=== PATIENT | female | born 1955 | race Caucasian/White ===

== ENCOUNTER 2016-09-09 14:48 | Inpatient (IN) | payer BC, MEDICARE ==
[2016-09-09] MEDS ORDERED: ASPIRIN 81 MG CHEW PO STA (15:03)
[2016-09-09] MEDS ORDERED: NITROGLYCERIN OINT 1 INCH/GM PACKET TOPICAL STA (15:03)
--- NOTE | 2016-09-09 15:11 | ED ---
General Adult HPI - General Chief complaint: Chest Pain Stated complaint: Chest Pressure Time Seen by Provider: 09/09/16 14:50 Source: patient, RN notes reviewed Mode of arrival: wheelchair Limitations: physical limitation - History of Present Illness Initial comments: This is a 61-year-old female with a past medical history significant for possible syndrome and high blood pressure. Patient states she has borderline high cholesterol. Patient comes in today because she 6. One hour of chest tightness. Patient states became very diaphoretic. In the tightness continues. Patient states she's mildly short of breath. Patient denies any nausea. Patient denies any palpitations. Patient denies lightheadedness dizziness or near syncopal episode per patient denies headache patient denies numbness weakness. Patient denies abdominal pain patient denies nausea vomiting or diarrhea. Patient states she was catheterized about 15 years ago but has not had any Physician since. - Related Data Home Medications Medication Instructions Recorded Confirmed ALPRAZolam [Xanax] 0.25 mg PO BID PRN 01/07/16 09/09/16 Albuterol Inhaler [Ventolin Hfa 2 puff INHALATION RT-Q6H PRN 01/07/16 09/09/16 Inhaler] Cyclobenzaprine [Flexeril] 5 mg PO TID PRN 01/07/16 09/09/16 Levothyroxine Sodium [Synthroid] 88 mcg PO DAILY 01/07/16 09/09/16 Nabumetone [Relafen] 1,500 mg PO QAM 01/07/16 09/09/16 Omeprazole [PriLOSEC] 40 mg PO DAILY 01/07/16 09/09/16 Liothyronine Sodium [Cytomel] 10 mcg PO DAILY 05/07/16 09/09/16 Multivitamins, Thera [Multivitamin] 1 tab PO DAILY 05/07/16 09/09/16 Sertraline [Zoloft] 150 mg PO DAILY 05/07/16 09/09/16 Rizatriptan Odt [Maxalt Stem Processing Machine Operator] 10 mg PO DAILY PRN 05/19/16 09/09/16 Lisinopril [Zestril] 10 mg PO DAILY 08/20/16 09/09/16 Milk Thistle 150 mg PO DAILY 08/20/16 09/09/16 HYDROcodone/APAP 10-325MG [[place] 1 - 2 tab PO Q6H PRN 09/09/16 09/09/16 10] Allergies Allergy/AdvReac Type Severity Reaction Status Date / Time codeine Allergy Nausea & Verified 09/09/16 15:38 Vomiting Review of Systems ROS Statement: Those systems with pertinent positive or pertinent negative responses have been documented in the HPI. ROS Other: All systems not noted in ROS Statement are negative. Past Medical History Past Medical History: Cancer, Hyperlipidemia, Hypertension, Osteoarthritis (OA) , Thyroid Disorder Additional Past Medical History / Comment(s): POTS,MTHFR mutation, hx melanoma History of Any Multi-Drug Resistant Organisms: None Reported Past Surgical History: Heart Catheterization, Hysterectomy, Joint Replacement, Orthopedic Surgery Additional Past Surgical History / Comment(s): bilateral knee replacement, and bilateral shoulders, joint rt thumb replaced and revised Past Anesthesia/Blood Transfusion Reactions: Previous Problems w/ Anesthesia, Postoperative Nausea & Vomiting (PONV) Additional Past Anesthesia/Blood Transfusion Reaction / Comment(s): POTS episode during anesthesia (severe drop in BP after previous knee replacement surgery) Past Psychological History: No Psychological Hx Reported Smoking Status: Former smoker Past Alcohol Use History: Occasional Additional Past Alcohol Use History / Comment(s): quit smoking couple years ago. smoked for 15 days < 1/2 PPD Past Drug Use History: None Reported - Past Family History Sister(s) Family Medical History: Cancer Brother(s) Family Medical History: Cancer General Exam - General Exam Comments Initial Comments: GENERAL: Patient is well-developed and well-nourished. Patient is nontoxic and well- hydrated and is in mild distress. ENT: Neck is soft and supple. No significant lymphadenopathy is noted. Oropharynx is clear. Moist mucous membranes. Neck has full range of motion without eliciting any pain. EYES: The sclera were anicteric and conjunctiva were pink and moist. Extraocular movements were intact and pupils were equal round and reactive to light. Eyelids were unremarkable. PULMONARY: Unlabored respirations. Good breath sounds bilaterally. No audible rales rhonchi or wheezing was noted. CARDIOVASCULAR: There is a regular rate and rhythm without any murmurs gallops or rubs. ABDOMEN: Soft and nontender with normal bowel sounds. No palpable organomegaly was noted. There is no palpable pulsatile mass. SKIN: Skin is clear with no lesions or rashes and otherwise unremarkable. NEUROLOGIC: Patient is alert and oriented x3. Cranial nerves II through XII are grossly intact. Motor and sensory are also intact. Normal speech, volume and content. Symmetrical smile. MUSCULOSKELETAL: Normal extremities with adequate strength and full range of motion. LYMPHATICS: No significant lymphadenopathy is noted PSYCHIATRIC: Normal psychiatric evaluation. Normal interpersonal interactions appears functionally intact in deals appropriately with others. No signs of depression. No signs of anxiety. Limitations: physical limitation Course Vital Signs 09/09/16 09/09/16 15:02 16:28 Temperature 96.9 F L Pulse Rate 96 99 Respiratory 18 18 Rate Blood Pressure 150/94 126/83 O2 Sat by Pulse 100 97 Oximetry Medical Decision Making - Medical Decision Making Patient's EKG shows bigeminy. EKG shows sinus rhythm at 102 bpm. It was 162 QRS is 94 QT interval 362 QTC is 471. Intrinsic rhythm was compared to an old EKG no new EKG changes are noted aside from the bigeminy Chest x-ray shows no acute abnormality. I went back and reevaluated the patient she was no longer in bigeminy and she was feeling considerably better because of patient's initial symptoms. I started the patient on heparin because of his symptoms I spoke with Dr. Wallace admitted patient's to Dr. Wallace and I wrote admitting orders and consult cardiology. - Lab Data Result diagrams: 09/09/16 15:15 09/09/16 15:15 Lab Results 09/09/16 09/09/16 09/09/16 Range/Units 15:15 15:15 15:15 WBC 6.4 (3.8-10.6) k/uL RBC 5.16 (3.80-5.40) m/uL Hgb 14.8 (11.4-16.0) gm/dL Hct 44.7 (34.0-46.0) % MCV 86.7 (80.0-100.0) fL MCH 28.6 (25.0-35.0) pg MCHC 33.0 (31.0-37.0) g/dL RDW 12.8 (11.5-15.5) % Plt Count 332 (150-450) k/uL Neutrophils % 67 % Lymphocytes % 21 % Monocytes % 8 % Eosinophils % 2 % Basophils % 1 % Neutrophils # 4.3 (1.3-7.7) k/uL Lymphocytes # 1.3 (1.0-4.8) k/uL Monocytes # 0.5 (0-1.0) k/uL Eosinophils # 0.1 (0-0.7) k/uL Basophils # 0.0 (0-0.2) k/uL PT (9.0-12.0) sec INR (<1.1) APTT (22.0-30.0) sec Sodium 144 (137-145) mmol/L Potassium 4.5 (3.5-5.1) mmol/L Chloride 105 (98-107) mmol/L Carbon Dioxide 23 (22-30) mmol/L Anion Gap 16 mmol/L BUN 15 (7-17) mg/dL Creatinine 0.79 (0.52-1.04) mg/dL Est GFR (MDRD) Af Amer >60 (>60 ml/min/1.73 sqM) Est GFR (MDRD) Non-Af >60 (>60 ml/min/1.73 sqM) Glucose 107 H (74-99) mg/dL Calcium 9.6 (8.4-10.2) mg/dL Magnesium 1.8 (1.6-2.3) mg/dL Total Bilirubin 0.7 (0.2-1.3) mg/dL AST 26 (14-36) U/L ALT 29 (9-52) U/L Alkaline Phosphatase 96 (38-126) U/L Total Creatine Kinase 46 (30-135) U/L CK-MB (CK-2) 0.5 (0.0-2.4) ng/mL CK-MB (CK-2) Rel Index 1.1 Troponin I <0.012 (0.000-0.034) ng/mL Total Protein 7.7 (6.3-8.2) g/dL Albumin 4.7 (3.5-5.0) g/dL 09/09/16 Range/Units 15:15 WBC (3.8-10.6) k/uL RBC (3.80-5.40) m/uL Hgb (11.4-16.0) gm/dL Hct (34.0-46.0) % MCV (80.0-100.0) fL MCH (25.0-35.0) pg MCHC (31.0-37.0) g/dL RDW (11.5-15.5) % Plt Count (150-450) k/uL Neutrophils % % Lymphocytes % % Monocytes % % Eosinophils % % Basophils % % Neutrophils # (1.3-7.7) k/uL Lymphocytes # (1.0-4.8) k/uL Monocytes # (0-1.0) k/uL Eosinophils # (0-0.7) k/uL Basophils # (0-0.2) k/uL PT 10.5 (9.0-12.0) sec INR 1.0 (<1.1) APTT 24.3 (22.0-30.0) sec Sodium (137-145) mmol/L Potassium (3.5-5.1) mmol/L Chloride (98-107) mmol/L Carbon Dioxide (22-30) mmol/L Anion Gap mmol/L BUN (7-17) mg/dL Creatinine (0.52-1.04) mg/dL Est GFR (MDRD) Af Amer (>60 ml/min/1.73 sqM) Est GFR (MDRD) Non-Af (>60 ml/min/1.73 sqM) Glucose (74-99) mg/dL Calcium (8.4-10.2) mg/dL Magnesium (1.6-2.3) mg/dL Total Bilirubin (0.2-1.3) mg/dL AST (14-36) U/L ALT (9-52) U/L Alkaline Phosphatase (38-126) U/L Total Creatine Kinase (30-135) U/L CK-MB (CK-2) (0.0-2.4) ng/mL CK-MB (CK-2) Rel Index Troponin I (0.000-0.034) ng/mL Total Protein (6.3-8.2) g/dL Albumin (3.5-5.0) g/dL Critical Care Time Critical Care Time: Yes Total Critical Care Time: 35 Disposition Clinical Impression: Unstable angina pectoris, Bigeminy Disposition: ADMITTED IP TO THIS [facility] Time of Disposition: 16:56
[2016-09-09 15:29] LABS: Basophils % (A) 1 %; CH 29.3; CHCM 33.9; Eosinophils # (A) 0.1 k/uL (0-0.7); Eosinophils % (A) 2 %; HCT 44.7 % (34.0-46.0); HDW 2.26; HGB 14.8 gm/dL (11.4-16.0); Luc # (Auto) 0.08; Luc % (Auto) 1; Lymphocytes # (A) 1.3 k/uL (1.0-4.8); Lymphocytes % (A) 21 %; MCH 28.6 pg (25.0-35.0); MCV 86.7 fL (80.0-100.0); Mean Platelet Volume 7.9; Monocytes # (A) 0.5 k/uL (0-1.0); Monocytes % (A) 8 %; Neutrophils # (A) 4.3 k/uL (1.3-7.7); Neutrophils % (A) 67 %; RBC 5.16 m/uL (3.80-5.40); RDW 12.8 % (11.5-15.5); WBC 6.4 k/uL (3.8-10.6); WBC (Perox) 6.18
[2016-09-09 15:40] LABS: ALT 29 U/L (9-52); AST 26 U/L (14-36); Alkaline Phosphatase 96 U/L (38-126); Anion Gap 16 mmol/L; Blood Urea Nitrogen 15 mg/dL (7-17); Calcium 9.6 mg/dL (8.4-10.2); Carbon Dioxide 23 mmol/L (22-30); Chloride 105 mmol/L (98-107); Glucose 107 mg/dL (74-99); Magnesium 1.8 mg/dL (1.6-2.3); Non-African American GFR(MDRD) >60 (>60 ml/min/1.73 sqM); Partial Thromboplastin Time 24.3 sec (22.0-30.0); Potassium 4.5 mmol/L (3.5-5.1); Prothrombin Time 10.5 sec (9.0-12.0); Sodium 144 mmol/L (137-145); Total Bilirubin 0.7 mg/dL (0.2-1.3); Total Protein 7.7 g/dL (6.3-8.2)
[2016-09-09] MEDS ORDERED: SODIUM CHLORIDE 0.9% 500 ML IV STA (15:41)
[2016-09-09 15:58] LABS: Creatine Kinase 46 U/L (30-135)
[2016-09-09 16:11] LABS: Creatine Kinase MB 0.5 ng/mL (0.0-2.4); Troponin I <0.012 ng/mL (0.000-0.034)
--- NOTE | 2016-09-09 16:34 | XR ---
EXAMINATION TYPE: XR chest 2V DATE OF EXAM: 09/09/2016 4:30 PM COMPARISON: NONE INDICATION: Chest pain TECHNIQUE: Frontal and lateral views of the chest are obtained. FINDINGS: The heart size is normal. The pulmonary vasculature is normal. The lungs are clear. IMPRESSION: 1. No acute pulmonary process.
[2016-09-09] MEDS ORDERED: HEPARIN SODIUM,PORCINE 5,000 UNIT/ML 1 ML VIAL IV ONE (16:54)
[2016-09-09] MEDS ORDERED: HEPARIN SODIUM,PORCINE/D5W PMX 25,000 UNIT in DEXTROSE/WATER 1 500ML.BAG IV SCH (17:00)
[2016-09-09] MEDS: NITROGLYCERIN SL TABS 0.4 MG TAB SUBLINGUAL PRN ×3 (20:41→20:52)
[2016-09-09] MEDS ORDERED: SUMAtriptan SUCCINATE 50 MG TAB PO PRN (21:24)
[2016-09-09] MEDS ORDERED: ALBUTEROL NEBULIZED 2.5 MG/3 ML INHALATION PRN (21:24)
[2016-09-09] MEDS ORDERED: ALPRAZolam 0.25 MG TAB PO PRN (21:24)
[2016-09-09 22:06] LABS: Creatine Kinase 42 U/L (30-135)
[2016-09-09 22:18] LABS: Creatine Kinase MB 0.5 ng/mL (0.0-2.4); Troponin I <0.012 ng/mL (0.000-0.034)
[2016-09-09] MEDS: HYDROcodone/APAP 10-325MG 1 EACH TAB PO PRN (22:53)
[2016-09-09 23:16] VITALS: BMI 38.7
[2016-09-09] MEDS: NITROGLYCERIN OINT 1 INCH/GM PACKET TOPICAL SCH (23:32)
[2016-09-09] MEDS: CYCLOBENZAPRINE 5 MG TAB PO PRN (23:34)
[2016-09-10 04:01] LABS: Cholesterol 228 mg/dL (<200); HDL Cholesterol 49 mg/dL (40-60); Triglycerides 90 mg/dL (<150)
[2016-09-10 04:18] LABS: Creatine Kinase 40 U/L (30-135)
[2016-09-10 04:32] LABS: Creatine Kinase MB 0.5 ng/mL (0.0-2.4); Troponin I <0.012 ng/mL (0.000-0.034)
[2016-09-10] MEDS: NITROGLYCERIN OINT 1 INCH/GM PACKET TOPICAL SCH ×2 (06:19→07:53)
[2016-09-10] MEDS: LIOTHYRONINE SODIUM 5 MCG TAB PO SCH (07:53)
[2016-09-10] MEDS: PANTOPRAZOLE 40 MG TABLET PO SCH (07:53)
[2016-09-10] MEDS: LEVOTHYROXINE 75 MCG TAB PO SCH (07:53)
[2016-09-10] MEDS: HYDROcodone/APAP 10-325MG 1 EACH TAB PO PRN ×2 (08:14→20:14)
[2016-09-10] MEDS: MELOXICAM 7.5 MG TAB PO SCH (08:15)
[2016-09-10] MEDS: ASPIRIN 325 MG TAB PO SCH (08:15)
[2016-09-10] MEDS: LISINOPRIL 10 MG TAB PO SCH (08:15)
[2016-09-10] MEDS: SERTRALINE 100 MG TAB PO SCH (08:15)
[2016-09-10] MEDS: MULTIVITAMINS, THERA 1 EACH TAB PO SCH (08:16)
--- NOTE | 2016-09-10 08:57 | P.CRDCN ---
History of Present Illness Consult date: 09/10/16 Requesting physician: Saima Wallace Consult reason: chest pain Chief complaint: Chest pain History of present illness: This is a 61-year-old female with documented history of [place], hypertension, hyperlipidemia, untreated, no diabetes, she is a nonsmoker, history of arthritis with multiple joint replacements, hypothyroidism. She presents to the hospital with symptoms of midsternal chest pressure with radiation through to the shoulder blades, positive associated shortness of breath and diaphoresis. She states that she initially thought these were just her symptoms which she experiences from [place], however this was much different, according to her the symptoms lasted approximately an hour in duration. She did have one more episode through the night last night, relieved with nitroglycerin. According to the patient she did undergo a cardiac catheterization approximately 15 years ago which was reported to be normal. Chest x-ray on admission here did not reveal any acute cardiopulmonary process. Initial EKG on arrival here showed a normal sinus rhythm with bigeminal PVCs. No acute changes noted. Repeat EKG performed last evening showed a normal sinus rhythm with occasional PVC, no acute changes noted. Lab data was reviewed , CBC normal, potassium 4.5, BUN 15, creatinine 0.7. Magnesium level I.8. Troponins have been negative 3. Cholesterol 228, LDL 161, HDL 49, triglycerides 90. Blood pressure this morning 122/64, heart rate in the 80s. 98% on room air. At the time of my examination this morning, patient complains of nausea, denies any chest pain at present. Past Medical History Past Medical History: Cancer, Fibromyalgia, Hyperlipidemia, Hypertension, Osteoarthritis (OA), Thyroid Disorder Additional Past Medical History / Comment(s): POTS,MTHFR mutation, hx melanoma History of Any Multi-Drug Resistant Organisms: None Reported Past Surgical History: Back Surgery, Heart Catheterization, Hysterectomy, Joint Replacement, Orthopedic Surgery Additional Past Surgical History / Comment(s): bilateral knee replacement, and bilateral shoulders, joint rt thumb replaced and revised. Heart cath 15 years ago with no stents. Right knee revision in 2016. Back surgery 5 years ago. Past Anesthesia/Blood Transfusion Reactions: Previous Problems w/ Anesthesia, Postoperative Nausea & Vomiting (PONV) Additional Past Anesthesia/Blood Transfusion Reaction / Comment(s): POTS episode during anesthesia (severe drop in BP after previous knee replacement surgery) Past Psychological History: Depression Smoking Status: Former smoker Past Alcohol Use History: Occasional Additional Past Alcohol Use History / Comment(s): quit smoking couple years ago. Smoke off and on for 30 years < 1/2 PPD Past Drug Use History: None Reported - Past Family History Sister(s) Family Medical History: Cancer Brother(s) Family Medical History: Cancer Medications and Allergies Home Medications Medication Instructions Recorded Confirmed Type ALPRAZolam [Xanax] 0.25 mg PO BID PRN 01/07/16 09/09/16 History Albuterol Inhaler [Ventolin Hfa 2 puff INHALATION RT-Q6H PRN 01/07/16 09/09/16 History Inhaler] Cyclobenzaprine [Flexeril] 5 mg PO TID PRN 01/07/16 09/09/16 History Levothyroxine Sodium [Synthroid] 75 mcg PO DAILY 01/07/16 09/09/16 History Nabumetone [Relafen] 1,500 mg PO QAM 01/07/16 09/09/16 History Omeprazole [PriLOSEC] 40 mg PO DAILY 01/07/16 09/09/16 History Liothyronine Sodium [Cytomel] 10 mcg PO DAILY 05/07/16 09/09/16 History Multivitamins, Thera [Multivitamin] 1 tab PO DAILY 05/07/16 09/09/16 History Sertraline [Zoloft] 150 mg PO DAILY 05/07/16 09/09/16 History Rizatriptan Odt [Maxalt Technical Rep] 10 mg PO DAILY PRN 05/19/16 09/09/16 History Lisinopril [Zestril] 10 mg PO DAILY 08/20/16 09/09/16 History Milk Thistle 150 mg PO DAILY 08/20/16 09/09/16 History HYDROcodone/APAP 10-325MG [[place] 1 - 2 tab PO Q6H PRN 09/09/16 09/09/16 History 10] Allergies Allergy/AdvReac Type Severity Reaction Status Date / Time codeine Allergy Nausea & Verified 09/09/16 15:38 Vomiting Physical Exam Vitals: Vital Signs Temp Pulse Pulse Resp BP BP Pulse Ox 09/10/16 08:00 97.3 F L 87 18 123/65 98 09/10/16 04:00 97.0 F L 89 18 107/67 99 09/10/16 00:00 96.8 F L 76 18 117/75 98 09/09/16 20:56 97.0 F L 91 18 126/76 99 09/09/16 20:52 141/75 09/09/16 20:47 127/79 09/09/16 20:41 145/64 09/09/16 20:00 97.0 F L 86 18 134/78 99 09/09/16 19:45 97.0 F L 86 18 134/78 99 09/09/16 19:14 84 18 135/64 95 09/09/16 17:30 80 16 125/93 97 Intake and Output 09/09/16 09/10/16 09/10/16 22:59 06:59 14:59 Intake Total 392.667 0 Output Total 100 Balance -100 392.667 0 Intake: Intake, IV Titration 92.667 Amount Heparin Sodium,Porcine/ 92.667 D5w Pmx 25,000 unit In Dextrose/Water 1 500ml. bag @ 10.022 UNITS/KG/HR 20 mls/hr IV .Q24H [facility] Rx #:[id number] Oral 300 0 Output: Urine 100 Other: Voiding Method Toilet Toilet # Voids 1 Weight 102.2 kg 102.2 kg PHYSICAL EXAMINATION: HEENT: Head is atraumatic, normocephalic. Pupils equal, round. Neck is supple. There is no elevated jugular venous pressure. HEART EXAMINATION: Heart S1 and S2 with soft systolic murmur is heard. CHEST EXAMINATION: Lungs are clear to auscultation and precussion. No chest wall tenderness is noted on palpation or with deep breathing. ABDOMEN: Soft, nontender. Bowel sounds are heard. No organomegaly noted. EXTREMITIES: 2+ peripheral pulses with no evidence of peripheral edema and no calf tenderness noted. NEUROLOGIC patient is awake, alert and oriented -3. . Results 09/09/16 15:15 09/09/16 15:15 Cardiac Enzymes 09/09/16 09/10/16 Range/Units 21:37 03:12 CK-MB (CK-2) 0.5 0.5 (0.0-2.4) ng/mL Troponin I <0.012 <0.012 (0.000-0.034) ng/mL Coagulation 09/09/16 Range/Units 21:37 APTT 80.5 H (22.0-30.0) sec Lipids 09/10/16 Range/Units 03:12 Triglycerides 90 (<150) mg/dL Cholesterol 228 H (<200) mg/dL HDL Cholesterol 49 (40-60) mg/dL Current Medications Generic Name Dose Route Start Last Admin Trade Name Freq PRN Reason Stop Dose Admin Acetaminophen/Hydrocodone Bitart 2 each 09/09/16 21:24 09/10/16 08:14 [place] 10 PO 1 each Q6H PRN Administration Pain Albuterol Sulfate 2.5 mg 09/09/16 21:24 Ventolin Nebulized INHALATION RT-Q6H PRN Shortness Of Breath Alprazolam 0.25 mg 09/09/16 21:24 Xanax PO BID PRN Anxiety Aspirin 325 mg 09/10/16 09:00 09/10/16 08:15 Aspirin PO 325 mg DAILY KASEY Administration Cyclobenzaprine HCl 5 mg 09/09/16 21:24 09/09/16 23:34 Flexeril PO 5 mg TID PRN Administration Muscle Pain Heparin Sodium/Dextrose 25,000 500 mls @ 20 mls/hr 09/09/16 17:00 09/09/16 23 :22 unit/ IV Solution IV 8.03 units/kg/hr .Q24H KASEY 16.02 mls/hr Protocol Titration 10.022 UNITS/KG/HR Levothyroxine Sodium 75 mcg 09/10/16 06:30 09/10/16 07:53 Synthroid PO 75 mcg 0630 KASEY Administration Liothyronine Sodium 10 mcg 09/10/16 06:30 09/10/16 07:53 Cytomel PO 10 mcg 0630 KASEY Administration Lisinopril 10 mg 09/10/16 09:00 09/10/16 08:15 Zestril PO 10 mg DAILY KASEY Administration Meloxicam 15 mg 09/10/16 09:00 09/10/16 08:15 Mobic PO 15 mg QAM KASEY Administration Multivitamins 1 each 09/10/16 12:00 09/10/16 08:16 Theragran PO 1 each 1200 KASEY Administration Nitroglycerin 1 inch 09/09/16 18:00 09/10/16 07:53 Nitro-Bid Oint TOPICAL Not Given Q6HR KASEY Nitroglycerin 0.4 mg 09/09/16 16:57 09/09/16 20:52 Nitrostat SUBLINGUAL 0.4 mg Q5M PRN Administration Chest Pain Pantoprazole Sodium 40 mg 09/10/16 07:30 09/10/16 07:53 Protonix PO 40 mg [id number] KASEY Administration Sertraline HCl 150 mg 09/10/16 09:00 09/10/16 08:15 Zoloft PO 150 mg DAILY KASEY Administration Sumatriptan Succinate 100 mg 09/09/16 21:24 Imitrex PO DAILY PRN Migraine Headache Intake and Output 09/09/16 09/10/16 09/10/16 22:59 06:59 14:59 Intake Total 392.667 0 Output Total 100 Balance -100 392.667 0 Intake: Intake, IV Titration 92.667 Amount Heparin Sodium,Porcine/ 92.667 D5w Pmx 25,000 unit In Dextrose/Water 1 500ml. bag @ 10.022 UNITS/KG/HR 20 mls/hr IV .Q24H KASEY Rx #:[id number] Oral 300 0 Output: Urine 100 Other: Voiding Method Toilet Toilet # Voids 1 Weight 102.2 kg 102.2 kg EKG Interpretations (text) EKG shows a normal sinus rhythm with bigeminal PVCs, no acute changes noted. Assessment and Plan Plan: Assessment and plan #1 chest pain troponins 3 have been negative. EKG shows normal sinus rhythm with no acute changes. #2 history of [place] #3 hypertension #4 hyperlipidemia, untreated. # 5 hypothyroidism #6 arthritis with multiple joint replacement surgeries Plan We will obtain an echocardiogram with Doppler study. Discontinue Nitropaste. Discontinue IV heparin. Initiate low-dose statin. Patient is advised to undergo stress testing for more definitive diagnosis. Recommendations will be based on these findings and patient's clinical course. DNP note has been reviewed, I agree with a documented findings and plan of care. Patient was seen and examined.
[2016-09-10] MEDS ORDERED: NON-FORMULARY DRUG (Milk Thistle [Milk Thistle] 150 MG) PO SCH (09:00)
--- NOTE | 2016-09-10 10:10 | HP ---
DATE OF ADMISSION: DATE OF SERVICE: 09/09/2016 The chief complaint is chest pain. HISTORY OF PRESENT ILLNESS: This is a 61-year-old woman with a past medical history of Pots syndrome, fibromyalgia, hypertension, hyperlipidemia, history of hypothyroidism, history of MTHFR mutation, history of melanoma, back surgery, history of cardiac catheterization, being followed by Dr. Irby in the outpatient setting, is complaining of chest pain. The patient had chest tightness and patient becoming diaphoretic and patient also has mild shortness of breath. The pain was felt in the anterior part of the chest. Patient apparently had a stress test about 3 - 4 years ago, because of increasing pain, patient came to [facility], admitting for further evaluation and treatment. The admission EKG did not show any acute abnormality. Troponins are negative so far. There is no history of fever, rigors or chills. No history of headache, loss of consciousness or seizures at this time. Admission EKG showed left axis deviation and as well as multiple PVCs. Past medical history of Pots syndrome, fibromyalgia, hypertension, hyperlipidemia, hypothyroidism. History of MTHFR mutation, history of cardiac catheterization, history of depression, history of nicotine dependence. Medications prior to admission are: 1. Synthroid 75 mcg p.o. daily. 2. [place] 10 mg q.6 p.r.n. 3. Flexeril 5 mg, 4. Ventolin HFA 2 puffs q.6 p.r.n. 5. Xanax 0.5 b.i.d. p.r.n. 6. Multivitamin 1 p.o. daily. 7. Milk Thistle 150 mg p.o. daily. 8. Zestril 10 mg p.o. daily. 9. Cytomel 10 mcg p.o. daily. 10. Zoloft 150 mg p.o. daily. 11. Maxalt 10 mg daily p.r.n. 12. Prilosec 40 mg daily. 13. Relafen 1500 mg q.a.m. Allergies are CODEINE. FAMILY HISTORY: History of cancer in the family. 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 REVIEW OF SYSTEMS: ENT: No diminished hearing or diminished vision. CARDIOVASCULAR SYSTEM: As mentioned earlier. RESPIRATORY: As mentioned earlier. GI: No nausea. : No dysuria. NERVOUS SYSTEM: No numbness or weakness. ALLERGY/IMMUNOLOGY: As mentioned earlier. MUSCULOSKELETAL: As mentioned earlier. RHEUMATOLOGY: As mentioned earlier. ENDOCRINE: As mentioned earlier. CONSTITUTIONAL: As mentioned earlier. DERMATOLOGY: Negative. PSYCHIATRY: As mentioned earlier. PHYSICAL EXAM: Patient is alert and oriented x3. Pulse 91, blood pressure 126/73, respirations 18, temperature is 97 degrees, pulse ox 99% on room air. HEENT: Conjunctivae normal, oral mucosa moist. NECK: No jugular venous distension, no carotid bruit, no lymph node enlargement. CARDIOVASCULAR SYSTEM: S1, S2, muffled. RESPIRATORY: Breath sounds diminished at the bases. No rhonchi, no crackles. ABDOMEN: Soft, nontender, no mass palpable. EXTREMITIES: No edema, no swelling. NERVOUS SYSTEM: Higher functions as mentioned earlier. Moves all 4 limbs. No focal motor deficits. LYMPHATICS: No lymph node enlargement in the neck, groin or axillae. SKIN: No ulcer, rash or bleeding. LABS: CBC within normal limits. Glucose 107, aPTT 80.5. ASSESSMENT: 1. Chest pain, possible unstable angina. 2. Heparin monitoring. 3. Fibromyalgia. 4. Pots syndrome. 5. Hypertension. 6. Hyperlipidemia. 7. History of degenerative joint disease. 8. History of MTHFR mutation. 9. History of hypothyroidism. 10. History of back surgery. 11. Degenerative joint disease. 12. History of cardiac catheterization. 13. History of depression. 14. Remote history of nicotine dependence. 15. Obesity, body mass index of 38.7. RECOMMENDATION: In this 61-year-old woman who presented with multiple complex medical issues, will monitor the patient closely. Continue with the monitoring and symptomatic treatment and acs protocol. Rule out acute coronary artery syndrome. N.p.o. past midnight. Cardiology consultation. Otherwise, repeat labs in the morning, resume the home medications. Guarded prognosis because of multiple complex medical issues. Further recommendations to follow. A copy of this will be forwarded Dr. Irby who is the primary physician. LESLYE
[2016-09-10] MEDS ORDERED: AMINOPHYLLINE 500 MG/20 ML VIAL IV PRN (11:01)
[2016-09-10] MEDS ORDERED: REGADENOSON 0.4 MG/5 ML SYRINGE IV ONE (11:01)
[2016-09-10] MEDS ORDERED: ONDANSETRON 4 MG/2 ML VIAL ONE (12:43)
[2016-09-10] MEDS ORDERED: AMINOPHYLLINE 250 MG/10 ML VIAL IV ONE (12:43)
--- NOTE | 2016-09-10 12:58 | ECHOF ---
Referral Reason:chest pain MEASUREMENTS -------- HEIGHT: 162.6 cm WEIGHT: 102.1 kg BP: 123/65 RVIDd: 2.4 cm (< 3.3) IVSd: 1.1 cm (0.6 - 1.1) LVIDd: 5.1 cm (3.9 - 5.3) LVPWd: 1.0 cm (0.6 - 1.1) IVSs: 1.4 cm LVIDs: 3.2 cm LVPWs: 1.8 cm LA Diam: 3.3 cm (2.7 - 3.8) Ao Diam: 3.0 cm (2.0 - 3.7) AV Cusp: 2.0 cm (1.5 - 2.6) LA Diam: 2.8 cm (2.7 - 3.8) MV EXCURSION: 14.642 mm (> 18.000) MV EF SLOPE: 31 mm/s (70 - 150) EPSS: 1.2 cm MV E Juan Daniel: 0.98 m/s MV DecT: 207 ms MV A Juan Daniel: 1.03 m/s MV E/A Ratio: 0.96 RAP: 5.00 mmHg RVSP: 21.81 mmHg FINDINGS -------- Sinus rhythm. This was a technically good study. Left ventricular wall thickness is normal. Overall left ventricular systolic function is low-normal with, an EF between 50 - 55 %. The right ventricle is normal in size. The left atrial size is normal. The right atrium is normal in size. Aortic valve is trileaflet and is mildly thickened. The mitral valve leaflets are mildly thickened. Mild mitral annular calcification present. Mild mitral regurgitation is present. Mild tricuspid regurgitation present. The right ventricular systolic pressure, as measured by Doppler, is 21.81mmHg. Trace/mild (physiologic) pulmonic regurgitation. The aortic root size is normal. Echo free space may represent effusion or a pericardial fat pad. CONCLUSIONS -------- 1. Sinus rhythm. 2. Mild mitral annular calcification present. 3. Mild mitral regurgitation is present. 4. Mild tricuspid regurgitation present. 5. The right ventricular systolic pressure, as measured by Doppler, is 21.81mmHg. 6. Trace/mild (physiologic) pulmonic regurgitation. 7. The aortic root size is normal. 8. Echo free space may represent effusion or a pericardial fat pad. 9. This was a technically good study. 10. Left ventricular wall thickness is normal. 11. Overall left ventricular systolic function is low-normal with, an EF between 50 - 55 %. 12. The right ventricle is normal in size. 13. The left atrial size is normal. 14. The right atrium is normal in size. 15. Aortic valve is trileaflet and is mildly thickened. 16. The mitral valve leaflets are mildly thickened. [employer]: My Nieto RDCS
--- NOTE | 2016-09-10 13:35 | NM ---
EXAMINATION TYPE: NM stress lexiscan cardiolite DATE OF EXAM: 09/10/2016 1:14 PM COMPARISON: NONE HISTORY: Chest pain TECHNIQUE: After the intravenous administration of 10.08 mCi Tc 99m Sestamibi - Cardiolite resting S PECT images acquired 45 minutes post injection. The patient received 0.4mg Lexiscan, 25.4 mCi Tc 99m Sestamibi - Stress images obtained [address] injection FINDINGS: Review of stress and rest SPECT images demonstrates stress-induced reversibility involving the apex a nd apical anterior portion of the myocardium. Gated analysis shows reduced wall motion activity with an estimated left ventricular ejection fraction of 24% %. IMPRESSION: Abnormal ejection fraction 24% with findings suggestive of stress-induced reversible ischemia involvi ng the apex and apical anterior myocardium
--- NOTE | 2016-09-10 17:28 | ECHOS ---
DATE OF SERVICE: 09/09/2016 AGE: 61Y SEX: F HT: 5'4" WT: 220 lbs. Protocol Luis Daniel: Others: Stage: Dur. of Exercise: *Heart Rate Blood Pressure *Rest: 84 Rest: 129/94 * *Max. Achieved: 142 Maximum BP: 170/86 85% PMHR: 134 100% PMHR: 158 *METS: INDICATIONS: MEDICATIONS: See list. CLINICAL INFORMATION: History of chest pain, hypertension, and history of smoking, quit smoking about a year ago. Resting ECG shows sinus rhythm, rate of 84 beats per minute, IL interval of 0.16, ( ) 0.08. Normal ST-T waves. Utilizing a standard Lexiscan protocol, Lexiscan was given 0.4 mg IV push followed by serial EKGs and ( ) symptoms. Patient's heart rate jumped up 153 beats per minute without any ST segment deviations and peaked at heart rate went up to 142 associated with some nausea, PVCs. No ST segment deviations indicative of ischemia or chest pain. Patient complained of some throat soreness which may be anginal in nature without EKG changes. Patient has received ( ) and Zofran. Cardiology and nuclear scintigrams to be reported by radiology department. IMPRESSION: 1. ( ) rhythm is sinus with normal IL intervals and normal ST-T waves. 2. Negative Lexiscan Cardiolite study. 3. Nuclear scintigrams to follow from radiology department.
[2016-09-10] MEDS: CYCLOBENZAPRINE 5 MG TAB PO PRN (20:55)
[2016-09-11] MEDS: LIOTHYRONINE SODIUM 5 MCG TAB PO SCH ×2 (06:05→08:57)
[2016-09-11] MEDS: LEVOTHYROXINE 75 MCG TAB PO SCH ×2 (06:06→08:57)
[2016-09-11 06:44] LABS: Basophils % (A) 1 %; CH 28.7; CHCM 32.9; Eosinophils # (A) 0.2 k/uL (0-0.7); Eosinophils % (A) 4 %; HDW 2.19; HGB 12.5 gm/dL (11.4-16.0); Luc # (Auto) 0.11; Luc % (Auto) 2; Lymphocytes # (A) 1.7 k/uL (1.0-4.8); Lymphocytes % (A) 37 %; MCH 28.2 pg (25.0-35.0); MCHC 32.2 g/dL (31.0-37.0); MCV 87.6 fL (80.0-100.0); Mean Platelet Volume 7.9; Monocytes # (A) 0.4 k/uL (0-1.0); Monocytes % (A) 9 %; Neutrophils # (A) 2.2 k/uL (1.3-7.7); Neutrophils % (A) 47 %; RBC 4.45 m/uL (3.80-5.40); RDW 12.9 % (11.5-15.5); WBC 4.6 k/uL (3.8-10.6); WBC (Perox) 4.83
[2016-09-11 07:03] LABS: Anion Gap 12 mmol/L; Blood Urea Nitrogen 15 mg/dL (7-17); Carbon Dioxide 29 mmol/L (22-30); Chloride 104 mmol/L (98-107); Glucose 89 mg/dL (74-99); Non-African American GFR(MDRD) >60 (>60 ml/min/1.73 sqM); Potassium 4.5 mmol/L (3.5-5.1); Sodium 145 mmol/L (137-145)
[2016-09-11] MEDS: ASPIRIN 325 MG TAB PO SCH (08:27)
[2016-09-11] MEDS: SERTRALINE 100 MG TAB PO SCH (08:27)
[2016-09-11] MEDS: LISINOPRIL 10 MG TAB PO SCH (08:27)
[2016-09-11] MEDS: MELOXICAM 7.5 MG TAB PO SCH (08:28)
[2016-09-11] MEDS: PANTOPRAZOLE 40 MG TABLET PO SCH (08:58)
[2016-09-11] MEDS ORDERED: LORazepam 2 MG/ML SYRINGE IV PRN (09:30)
[2016-09-11] MEDS ORDERED: ALPRAZolam 0.25 MG TAB PO PRN (10:28)
[2016-09-11] MEDS ORDERED: ALPRAZolam 0.5 MG TAB PO PRN (10:28)
[2016-09-11] MEDS ORDERED: ATORVASTATIN 80 MG TAB PO STA (10:28)
[2016-09-11] MEDS ORDERED: ASPIRIN 325 MG TAB PO STA (10:28)
[2016-09-11] MEDS ORDERED: SODIUM CHLORIDE 0.9% 1,000 ML in EMPTY BAG 1 BAG IV ONE (10:28)
[2016-09-11] MEDS ORDERED: NITROGLYCERIN SL TABS 0.4 MG TAB SUBLINGUAL PRN (10:28)
[2016-09-11] MEDS: MULTIVITAMINS, THERA 1 EACH TAB PO SCH (12:28)
--- NOTE | 2016-09-11 12:52 | PN ---
DATE OF SERVICE: 09/10/2016 This 61-year-old woman was admitted with chest pain, is awaiting stress test. No chest pain. No fever. No cough. On exam, alert and oriented x3. Pulse is 78, blood pressure 125/78, respirations 16, temperature 97.7, pulse ox 99% on room air. HEENT: Conjunctivae normal. NECK: No jugular venous distention. CARDIOVASCULAR: S1 and S2, muffled. RESPIRATORY: Breath sounds diminished at the bases. ABDOMEN: Soft, nontender. LEGS: No edema, no swelling. NERVOUS SYSTEM: No focal deficits. Labs are CBC within normal limits. Cholesterol is 228. LDL is 161. ASSESSMENT: 1. Chest pain, possible angina, status post stress test. 2. Hyperlipidemia. 3. Heparin monitoring. 4. Fibromyalgia. 5. POTS syndrome. 6. Hypertension. 7. Hyperlipidemia. 8. History of degenerative joint disease. 9. History of MTHFR mutation. 10. Hypothyroidism. 11. History of back surgery, degenerative joint disease. 12. History of cardiac catheterization. 13. History of depression. 14. Remote history of nicotine dependence. 15. Obesity, body mass index 38.7. RECOMMENDATIONS AND DISCUSSION: Recommend to continue with current medications. Continue with symptomatic treatment. Otherwise, at this time I would recommend continue with current medications, otherwise, await stress test report. Add agents. Continue to monitor. Further recommendations to follow. MTDD
[2016-09-11] MEDS ORDERED: MIDAZOLAM 2 MG/2 ML VIAL ONE (16:00)
[2016-09-11] MEDS ORDERED: fentaNYL (PF) 50 MCG/ML 2 ML AMP ONE (16:00)
[2016-09-11] MEDS ORDERED: LIDOCAINE 2% INJ 20 MG/ML (20 ML MDV) ONE (16:00)
[2016-09-11] MEDS ORDERED: diphenhydrAMINE 50 MG/ML 1 ML VIAL ONE (16:00)
[2016-09-11] MEDS ORDERED: MIDAZOLAM 2 MG/2 ML VIAL IV ONE (16:14)
[2016-09-11] MEDS ORDERED: LIDOCAINE 2% INJ 20 MG/ML SQ ONE (16:14)
[2016-09-11] MEDS ORDERED: fentaNYL (PF) 50 MCG/ML 2 ML AMP IV ONE (16:14)
[2016-09-11] MEDS ORDERED: SODIUM CHLORIDE 0.9% 500 ML IV ONE (16:14)
[2016-09-11] MEDS ORDERED: IOHEXOL 350 MG/ML 100 ML BOTTLE INJ ONE (16:24)
[2016-09-11] MEDS ORDERED: RX INFO: IV CONTRAST WAS GIVEN 1 EACH MISC MISCELLANE PRN (16:31)
--- NOTE | 2016-09-11 16:39 | P.PCN ---
Date of Procedure: 09/11/16 Preoperative Diagnosis: Positive stress test and chest pains. Postoperative Diagnosis: Normal coronary arteries. Cardiomyopathy Procedure(s) Performed: Left heart catheterization with left ventriculography Description of Procedure: HISTORY: This is a 61-year-old female with history of Pott's syndrome and hypertension who was admitted to the hospital with complaints of chest pain and palpitations. Her cardiac enzymes and EKGs were negative. Patient had a nuclear stress test that was described as showing reversible ischemia in the anteroapical wall with impaired LV function with an ejection fraction of 25%. Echo Cardigan showed an ejection fraction about 50%. Patient is advised to have a cardiac catheterization for definitive diagnosis. CONSENT:I have discussed the risks, benefits and alternative therapies for the above-mentioned procedure and for both sedation/analgesia as well as necessary blood product administration, if indicated, as they pertain to this patient. The patient has indicated understanding and acceptance of the risks and procedures discussed. PROCEDURE: Patient was brought to the lab in a fasting state. Patient was given some IV sedation. The right groin is infiltrated with lidocaine and right femoral artery was entered using Seldinger technique. A 6-[place] Islander catheter was left in place and selective coronary arteriography and left ventriculography was performed. Patient tolerated the procedure well. Femoral angiogram was performed and Angio-Seal was applied for hemostasis. No immediate complications were noted and patient was transferred to [facility] in a stable condition HEMODYNAMICS: The aortic pressure is about 120/70. Left ventricular end- diastolic pressure is about 10. There is no gradient across the aortic valve SELECTIVE CORONARY ARTERIOGRAPHY: LEFT MAIN: Normal length and patent THE LEFT ANTERIOR DESCENDING CORONARY ARTERY: This is a good caliber vessel giving rise to good-sized diagonal septal branches. The LAD and branches are free of any occlusive disease. THE LEFT CIRCUMFLEX AND IS CORONARY ARTERY: This is a nondominant vessel and free of any occlusive disease THE RIGHT CORONARY ARTERY: This is a dominant vessel giving rise good-sized PDA. Free of any occlusive disease LEFT VENTRICULOGRAPHY: This revealed a large left ventricle with mild to moderate generalized hypokinesia. Ejection fraction 35-40% FINAL IMPRESSION: #1. No critical coronary artery disease #2. Cardiomyopathy with the generalized hypokinesia and ejection fraction of 35-40% PLAN: Maximum medical therapy with LASHA inhibitor, Coreg and spironolactone PROGNOSIS: Fair
[2016-09-11] MEDS: HYDROcodone/APAP 10-325MG 1 EACH TAB PO PRN ×2 (17:02→23:58)
[2016-09-11] MEDS: SODIUM CHLORIDE 0.9% 1,000 ML IV SCH (17:04)
[2016-09-11] MEDS: CARVEDILOL 3.125 MG TAB PO SCH (17:51)
[2016-09-11 18:55] VITALS: RESP 18
[2016-09-11] MEDS: CYCLOBENZAPRINE 5 MG TAB PO PRN (21:04)
[2016-09-12] MEDS: SODIUM CHLORIDE 0.9% 1,000 ML IV SCH (05:18)
[2016-09-12] MEDS: LIOTHYRONINE SODIUM 5 MCG TAB PO SCH (06:35)
[2016-09-12] MEDS: LEVOTHYROXINE 75 MCG TAB PO SCH (06:35)
[2016-09-12] MEDS: PANTOPRAZOLE 40 MG TABLET PO SCH (06:36)
[2016-09-12] MEDS: CARVEDILOL 3.125 MG TAB PO SCH (06:36)
[2016-09-12] MEDS: ASPIRIN 325 MG TAB PO SCH (08:29)
[2016-09-12] MEDS: LISINOPRIL 10 MG TAB PO SCH (08:29)
[2016-09-12] MEDS: MELOXICAM 7.5 MG TAB PO SCH (08:29)
[2016-09-12] MEDS: SERTRALINE 100 MG TAB PO SCH (08:30)
[2016-09-12] MEDS ORDERED: SPIRONOLACTONE 25 MG TAB PO SCH (09:30)
--- NOTE | 2016-09-12 10:29 | PN ---
DATE OF SERVICE: 09/11/2016 This 61 -year-old woman was admitted with chest pain and had positive stress. The patient is scheduled to undergo cardiac catheterization today. The cardiac catheterization done later today by Dr. Plaza showed no critical coronary artery disease, cardiomyopathy, with generalized hypokinesia with an ejection fraction about 35 to 40%. Maximal medical treatment was recommended. No chest pain. No palpitation. No fever. On exam the patient is alert and oriented times three. Pulse 84, blood pressure 105/51, respirations 18, temperature 98.1 and pulse ox 97% on room air. HEENT: Conjunctivae normal. NECK: No jugular venous distention. CARDIOVASCULAR: S1, S2 muffled. RESPIRATORY: Breath sounds diminished at the bases. No rhonchi, no crackles. ABDOMEN: Soft, nontender. Legs: No edema. No swelling. CENTRAL NERVOUS SYSTEM: No focal deficits. LABS: CBC, CMP within normal limits. Cholesterol 228, LDL is 161. ASSESSMENT: 1. status post positive stress test and cardiac catheterization showing no active occluding coronary artery disease. 2. ejection fraction with ejection fraction 35 to 40% during the cardiac catheterization indicating chronic systolic dysfunction with chronic congestive heart failure and possible cardiomyopathy. 3. Hyperlipidemia. 4. fibromyalgia and Angeles syndrome. 5. Hypertension. 6. Hyperlipidemia. 7. History of degenerative joint disease. 8. History of MTHFR mutation. 9. History of hypothyroidism. 10. History of back surgery. 11. Degenerative joint disease. 12. History of cardiac catheterization. 13. History of depression. 14. Remote history of nicotine dependence. 15. Obesity, body mass index 38.7. RECOMMENDATIONS AND DISCUSSION: Recommend to continue current medications, continue with monitoring. Symptomatic treatment. Otherwise, continue with LASHA inhibitors, beta blockers and antiplatelet agents and Lipitor. Continue to monitor. Further recommendations to follow. MTDD
[2016-09-12 12:07] VITALS: BP 131/60; PULSE 84; TEMP 97.8
--- NOTE | 2016-09-12 14:17 | P.PN ---
Subjective This is a 61-year-old female with documented history of Angeles, hypertension, hyperlipidemia, untreated, no diabetes, she is a nonsmoker, history of arthritis with multiple joint replacements, hypothyroidism. She presents to the hospital with symptoms of midsternal chest pressure with radiation through to the shoulder blades, positive associated shortness of breath and diaphoresis. She states that she initially thought these were just her symptoms which she experiences from Angeles, however this was much different, according to her the symptoms lasted approximately an hour in duration. She did have one more episode through the night last night, relieved with nitroglycerin. According to the patient she did undergo a cardiac catheterization approximately 15 years ago which was reported to be normal. Chest x-ray on admission here did not reveal any acute cardiopulmonary process. Initial EKG on arrival here showed a normal sinus rhythm with bigeminal PVCs. No acute changes noted. Repeat EKG performed last evening showed a normal sinus rhythm with occasional PVC, no acute changes noted. Troponins were negative 3. The patient underwent a stress test which was suggestive of stress -induced ischemia involving the apex and apical anterior myocardium, and for this reason she underwent a cardiac catheterization by Dr. Plaza yesterday. Cardiac catheterization did not reveal any significant obstructive coronary artery disease, he did reveal an ejection fraction of 35%. As patient' s medication adjustments were made. Patient is currently on aspirin 81 mg daily , Coreg 3.125 mg twice a day, Synthroid, lisinopril 10 mg daily, and Aldactone 25 mg daily. She has been up ambulating today without any difficulty. Objective - Vital Signs Vital signs: Vital Signs Temp 97.8 F 09/12/16 12:05 Pulse 84 09/12/16 12:05 Resp 18 09/12/16 12:05 BP 131/60 09/12/16 12:05 Pulse Ox 97 09/12/16 12:05 Intake & Output 09/11/16 09/12/16 09/12/16 18:59 06:59 18:59 Intake Total 270 425 656 Output Total 300 850 Balance -30 425 656 Weight 102.6 kg Intake: IV 50 Intake, IV Titration 225 Amount Sodium Chloride 0.9% 1, 225 000 ml @ 75 mls/hr IV . [id number] [facility] Rx#:[id number] Oral 220 200 656 Output: Urine 300 850 Other: Voiding Method Toilet - Exam PHYSICAL EXAMINATION: HEENT: Head is atraumatic, normocephalic. Pupils equal, round. Neck is supple. There is no elevated jugular venous pressure. HEART EXAMINATION: Heart S1 and S2 with soft systolic murmur is heard. CHEST EXAMINATION: Lungs are clear to auscultation and precussion. No chest wall tenderness is noted on palpation or with deep breathing. ABDOMEN: Soft, nontender. Bowel sounds are heard. No organomegaly noted. Right groin soft, no evidence of any hematoma. EXTREMITIES: 2+ peripheral pulses with no evidence of peripheral edema and no calf tenderness noted. NEUROLOGIC patient is awake, alert and oriented -3. - Labs CBC & Chem 7: 09/11/16 06:09 09/11/16 06:09 Assessment and Plan Plan: Assessment and plan #1 chest pain troponins 3 have been negative. EKG shows normal sinus rhythm with no acute changes. Stress test was suggestive of reversible ischemia, patient underwent cardiac catheterization which did not reveal any obstructive coronary artery disease. Ejection fraction 35-40%. #2 history of [place] #3 hypertension #4 hyperlipidemia, untreated. # 5 hypothyroidism #6 arthritis with multiple joint replacement surgeries Plan Patient may be able to be discharged home once cleared by the primary. Follow- up appointment with Dr. Plaza in the office post discharge. Prescriptions for medications have been provided. DNP note has been reviewed, I agree with a documented findings and plan of care. Patient was seen and examined.
[2016-09-12] MEDS: MULTIVITAMINS, THERA 1 EACH TAB PO SCH (14:20)
[2016-09-13] MEDS ORDERED: ASPIRIN 81 MG CHEW PO SCH (09:00)
--- NOTE | 2016-09-13 10:40 | DS ---
DATE OF ADMISSION: 09/09/2016 DATE OF DISCHARGE: 09/12/2016 FINAL DIAGNOSES: 1. Chest pain unstable angina secondary to possible coronary spasm or coronary artery disease with cardiac catheterization showing no occluding coronary artery disease. 2. Ejection fraction 35 to 40% during the cardiac catheterization showing systolic dysfunction, possibly chronic indicating possible cardiomyopathy. 3. Hyperlipidemia. 4. Fibromyalgia. 5. TRIVEDI. 6. Hypertension. 7. Hyperlipidemia. 8. History of degenerative joint disease 9. History MTHFR mutation. 10. History of hypothyroidism. 11. History of back surgeries. 12. History of degenerative joint disease. 13. History of cardiac catheterization. 14. History of depression. 15. History of nicotine dependence. 16. Obesity, body mass index 38.7. 17. FULL CODE. DISCHARGE DISPOSITION: The patient will be discharged in a stable condition with guarded prognosis. The discharge cleared by Cardiology. HISTORY OF PRESENT ILLNESS: This 61-year-old woman with a past medical history of multiple medical problems was admitted with chest pain, had cardiac catheterization. The patient also had abnormal stress test. Cardiac catheterization showed no evidence of necrosis, coronary artery disease. Patient was treated symptomatically. Patient also had low ejection fraction. Cardiology saw the patient. Medications adjusted. The patient will be discharged in a stable condition with guarded prognosis. DISCHARGE ADVICE: 1. Diet is cardiac. 2. Activity limited until follow-up. 3. Follow-up with Dr. Irby in 2 to 3 days. 4. Follow with Dr. Plaza as recommended. MEDICATIONS: 1. Xanax 0.5 p.o. b.i.d. p.r.n. 2. Albuterol 2 puffs q.i.d. p.r.n. 3. Aspirin 81 mg p.o. daily. 4. Lipitor 10 mg q.h.s. 5. Coreg 3.125 mg p.o. b.i.d. 6. Flexeril 5 mg b.i.d. p.r.n. 7. Smackover 10 mg 1 to 2 tablets p.o. q.6 p.r.n. 8. Synthroid 75 mcg p.o. daily. 9. Cytomel 10 mcg p.o. daily. 10. Zestril 10 mg p.o. daily. 11. Milk of Thistle 150 mg p.o. daily. 12. Multivitamin 1 p.o. daily. 13. Relafen 1500 mg p.o. q.a.m. 14. Nitrostat 0.4 sublingual p.r.n. 15. Prilosec 40 mg p.o. daily. 16. Maxalt 10 mg p.o. daily. 17. Zoloft 150 mg p.o. daily. 18. Aldactone 25 mg p.o. daily. Once again, the patient will be discharged in a stable condition with guarded prognosis.
== END 2016-09-12 18:05 | disposition home or self-care (01) | DRG 287 ==
LOC: EC 14:48 → 6SEL 16:57
PROVIDERS: ADMIT Internal Medicine; ATTEND Internal Medicine
PROC: B2111ZZ Fluoroscopy of Multiple Coronary Arteries using Low Osmolar Contrast (ICD-10-PCS; 2016-09-11)
PROC: B2151ZZ Fluoroscopy of Left Heart using Low Osmolar Contrast (ICD-10-PCS; 2016-09-11)
PROC: 4A023N7 Measurement of Cardiac Sampling and Pressure, Left Heart, Percutaneous Approach (ICD-10-PCS; principal; 2016-09-11 13:50)
DX: I25.110 Atherosclerotic heart disease of native coronary artery with unstable angina pectoris (principal); I20.1 Angina pectoris with documented spasm; I50.22 Chronic systolic (congestive) heart failure; I42.9 Cardiomyopathy, unspecified; I11.0 Hypertensive heart disease with heart failure; E03.9 Hypothyroidism, unspecified; E66.9 Obesity, unspecified; E78.00 Pure hypercholesterolemia, unspecified; E78.5 Hyperlipidemia, unspecified; I49.3 Ventricular premature depolarization; M19.90 Unspecified osteoarthritis, unspecified site; M79.7 Fibromyalgia; F32.9 Major depressive disorder, single episode, unspecified; Z68.38 Body mass index [BMI] 38.0-38.9, adult; Z79.899 Other long term (current) drug therapy; Z85.820 Personal history of malignant melanoma of skin; Z87.891 Personal history of nicotine dependence; Z96.653 Presence of artificial knee joint, bilateral; Z88.5 Allergy status to narcotic agent; Z96.612 Presence of left artificial shoulder joint; Z96.611 Presence of right artificial shoulder joint
CPT/HCPCS: 36415; 71020; 78452; 80048; 80053; 80061; 82550; 82553; 83735; 84484; 85025; 85610; 85730; 93005; 93017; 93306; 93458; 96361; 96365; 96376; 99291

== ENCOUNTER 2017-02-16 02:06 | Emergency (ER) | payer BC, MEDICARE ==
[2017-02-16 02:11] VITALS: RESP 18
[2017-02-16] MEDS ORDERED: KETOROLAC 60 MG/2 ML VIAL IVP STA (02:21)
[2017-02-16] MEDS ORDERED: DIAZEPAM 5 MG/ML 2 ML SYRINGE IVP STA (02:21)
--- NOTE | 2017-02-16 02:26 | ED ---
General Adult HPI - General Chief complaint: Chest Pain Stated complaint: Chest Pain Time Seen by Provider: 02/16/17 02:10 Source: EMS, RN notes reviewed Mode of arrival: EMS Limitations: no limitations - History of Present Illness Initial comments: This is a 61-year-old female who states she just recently had a defibrillator placed and since she's been having muscle spasms in her chest that radiated around to the back. Patient states they come and extremely sharp in the microwave and they come right back again. Patient states taking deep breaths or moving seems to set it off. Patient states been ongoing for the last few days. Patient states she followed up with her entry level marketing assistant last week and he didn't seem to think much of the muscle spasms. Patient states she's been taking Flexeril as she always does and it does not seem to help her spasms. Patient denies any shortness of breath but she does state taking deep breaths of spasms off. Patient denies any internal chest pain. Patient states this is right in her muscles externally. Patient denies any fever chills or cough. - Related Data Home Medications Medication Instructions Recorded Confirmed ALPRAZolam [Xanax] 0.25 mg PO BID PRN 01/07/16 09/09/16 Albuterol Inhaler [Ventolin Hfa 2 puff INHALATION RT-Q6H PRN 01/07/16 09/09/16 Inhaler] Cyclobenzaprine [Flexeril] 5 mg PO TID PRN 01/07/16 09/09/16 Levothyroxine Sodium [Synthroid] 75 mcg PO DAILY 01/07/16 09/09/16 Nabumetone [Relafen] 1,500 mg PO QAM 01/07/16 09/09/16 Omeprazole [PriLOSEC] 40 mg PO DAILY 01/07/16 09/09/16 Liothyronine Sodium [Cytomel] 10 mcg PO DAILY 05/07/16 09/09/16 Multivitamins, Thera [Multivitamin 1 tab PO DAILY 05/07/16 09/09/16 (formulary)] Sertraline [Zoloft] 150 mg PO DAILY 05/07/16 09/09/16 Rizatriptan Odt [Maxalt ROR ENGINEER] 10 mg PO DAILY PRN 05/19/16 09/09/16 Lisinopril [Zestril] 10 mg PO DAILY 08/20/16 09/09/16 Milk Thistle 150 mg PO DAILY 08/20/16 09/09/16 HYDROcodone/APAP 10-325MG [Branch 1 - 2 tab PO Q6H PRN 09/09/16 09/09/16 10-325] Previous Rx's Medication Instructions Recorded Atorvastatin Calcium [Lipitor] 10 mg PO HS #30 tab 09/10/16 Aspirin 81 mg PO DAILY #30 chew 09/12/16 Carvedilol [Coreg] 3.125 mg PO BID-W/MEALS #60 tab 09/12/16 Nitroglycerin Sl Tabs [Nitrostat] 0.4 mg SUBLINGUAL Q5M PRN #25 tab 09/12/16 Spironolactone [Aldactone] 25 mg PO DAILY #30 tab 09/12/16 Diazepam [Valium] 5 mg PO Q6H #10 tab 02/16/17 Allergies Allergy/AdvReac Type Severity Reaction Status Date / Time codeine Allergy Nausea & Verified 02/16/17 02:11 Vomiting Review of Systems ROS Statement: Those systems with pertinent positive or pertinent negative responses have been documented in the HPI. ROS Other: All systems not noted in ROS Statement are negative. Past Medical History Past Medical History: Cancer, Fibromyalgia, Hyperlipidemia, Hypertension, Osteoarthritis (OA), Thyroid Disorder Additional Past Medical History / Comment(s): POTS,MTHFR mutation, hx melanoma History of Any Multi-Drug Resistant Organisms: None Reported Past Surgical History: Back Surgery, Heart Catheterization, Hysterectomy, Joint Replacement, Orthopedic Surgery Additional Past Surgical History / Comment(s): bilateral knee replacement, and bilateral shoulders, joint rt thumb replaced and revised. Heart cath 15 years ago with no stents. Right knee revision in 2016. Back surgery 5 years ago. Past Anesthesia/Blood Transfusion Reactions: Previous Problems w/ Anesthesia, Postoperative Nausea & Vomiting (PONV) Additional Past Anesthesia/Blood Transfusion Reaction / Comment(s): POTS episode during anesthesia (severe drop in BP after previous knee replacement surgery) Past Psychological History: Depression Smoking Status: Former smoker Past Alcohol Use History: Occasional Additional Past Alcohol Use History / Comment(s): quit smoking couple years ago. Smoke off and on for 30 years < 1/2 PPD Past Drug Use History: None Reported - Past Family History Sister(s) Family Medical History: Cancer Brother(s) Family Medical History: Cancer General Exam - General Exam Comments Initial Comments: GENERAL: Patient is well-developed and well-nourished. Patient is nontoxic and well- hydrated and is in mild distress. ENT: Neck is soft and supple. No significant lymphadenopathy is noted. Oropharynx is clear. Moist mucous membranes. Neck has full range of motion without eliciting any pain. EYES: The sclera were anicteric and conjunctiva were pink and moist. Extraocular movements were intact and pupils were equal round and reactive to light. Eyelids were unremarkable. PULMONARY: Unlabored respirations. Good breath sounds bilaterally. No audible rales rhonchi or wheezing was noted. CARDIOVASCULAR: There is a regular rate and rhythm without any murmurs gallops or rubs. Palpating the area around the defibrillator was tender. ABDOMEN: Soft and nontender with normal bowel sounds. No palpable organomegaly was noted. There is no palpable pulsatile mass. SKIN: Skin is clear with no lesions or rashes and otherwise unremarkable. NEUROLOGIC: Patient is alert and oriented x3. Cranial nerves II through XII are grossly intact. Motor and sensory are also intact. Normal speech, volume and content. Symmetrical smile. MUSCULOSKELETAL: Normal extremities with adequate strength and full range of motion. LYMPHATICS: No significant lymphadenopathy is noted PSYCHIATRIC: Normal psychiatric evaluation. Limitations: no limitations Course Vital Signs 02/16/17 02:08 Temperature 97.7 F Pulse Rate 83 Respiratory 18 Rate Blood Pressure 139/78 O2 Sat by Pulse 97 Oximetry Medical Decision Making - Medical Decision Making EKG shows a sinus rhythm with frequent PVCs at 80 bpm CA interval is 144 QRS is 94 QT interval 392 QTC is 452. Patient's EKG shows no ST segment elevation or depression. EKG is unchanged when compared to an old EKG. Chest x-ray shows no acute abnormality. I gave the patient Toradol and Valium and the patient's pain was completely resolved. Disposition Clinical Impression: Muscle spasm Disposition: HOME SELF-CARE Condition: Good Instructions: Muscle Spasm (ED) Prescriptions: Diazepam [Valium] 5 mg PO Q6H #10 tab Referrals: Woody Irby MD [Primary Care Provider] - 1-2 days Time of Disposition: 02:55
[2017-02-16 03:11] VITALS: BP 108/54; PULSE 84; TEMP 98.4
--- NOTE | 2017-02-16 03:14 | XR ---
EXAM: XR Chest, 2 Views CLINICAL HISTORY: Reason: Difficulty breathing TECHNIQUE: Frontal and lateral views of the chest. COMPARISON: 09/09/2016 FINDINGS: Lungs: Left basilar opacity may represent atelectasis or consolidation. The right lung is clear. Pleural space: Small left pleural effusion. No pneumothorax. Heart: Unremarkable. No cardiomegaly. Mediastinum: Stable cardiomediastinal silhouette. Again seen is a retrocardiac opacity, possibly a hiatal hernia. Bones/joints: No acute osseous abnormality. Tubes, lines and devices: New left chest wall AICD. Telemetry leads overlie the patient. IMPRESSION: Small left pleural effusion. Left basilar opacity may represent atelectasis or consolidation.
== END 2017-02-16 03:11 | disposition home or self-care (01) ==
LOC: EC 02:06
DX: M62.838 Other muscle spasm (principal); R07.9 Chest pain, unspecified; J90 Pleural effusion, not elsewhere classified; E78.5 Hyperlipidemia, unspecified; I10 Essential (primary) hypertension; M19.90 Unspecified osteoarthritis, unspecified site; E07.9 Disorder of thyroid, unspecified; F32.9 Major depressive disorder, single episode, unspecified; Z95.810 Presence of automatic (implantable) cardiac defibrillator; Z88.5 Allergy status to narcotic agent; Z79.1 Long term (current) use of non-steroidal anti-inflammatories (NSAID); Z79.899 Other long term (current) drug therapy; Z87.891 Personal history of nicotine dependence
CPT/HCPCS: 99285; 96374; 96375; 93005; 71020; J3360; J1885

== ENCOUNTER → 2017-05-06 | Outpatient (CLI) | payer BC, MEDICARE ==
--- NOTE | 2017-05-07 09:05 | MM ---
Reason for exam: clinical finding. Last mammogram was performed 8 years and 7 months ago. History: Patient has history of other cancer at age 46. Benign core biopsy of the left breast. Taking estrogen beginning at age 59. Physical Findings: Nurse Summary: 1cm nodule in the left breast at 7, 8 o'clock (nurse kp). MG 3D Diag Mammo W/Cad TYRA Bilateral CC and MLO view(s) were taken. No prior studies available for comparison. The breast tissue is heterogeneously dense. This may lower the sensitivity of mammography. No suspicious abnormality. These results were verbally communicated with the patient and result sheet given to the patient on 05/06/17. ASSESSMENT: Negative, BI-RAD 1 RECOMMENDATION: Routine screening mammogram of both breasts in 1 year.
--- NOTE | 2017-05-07 09:08 | USB ---
Reason for exam: clinical finding. History: Patient has history of other cancer at age 46. Benign core biopsy of the left breast. Taking estrogen beginning at age 59. US Breast LT Left breast ultrasound includes all four quadrants, the retroareolar region and axilla. Finding demonstrates a 8 x 6 x 10mm oval, solid, hypoechoic lesion at palpable at 6 o'clock and a 4 x 4 x 4mm oval, solid, hyperechoic lesion at 10 o'clock. Lipomas benign. These results were verbally communicated with the patient and result sheet given to the patient on 05/06/17. ASSESSMENT: Benign, BI-RAD 2 RECOMMENDATION: Routine screening mammogram of both breasts in 1 year. Manage patient on a clinical basis.
== END | disposition home or self-care (01) ==
LOC: RADMAMWWP 12:59
PROVIDERS: ATTEND Internal Medicine
DX: N63 Unspecified lump in breast (principal)
CPT/HCPCS: 76641; G0204; G0279

== ENCOUNTER → 2018-10-28 | Outpatient (CLI) | payer BC ==
[2018-10-27 11:20] VITALS: BMI 36.6
[2018-10-28 12:07] VITALS: BP 134/89; PULSE 77; RESP 16; TEMP 97.5
--- NOTE | 2018-10-28 13:17 | P.PAINCN ---
History of Present Illness - Reason for Consult Consult date: 10/28/18 - History of Present Illness Dolores is a 63 year old female presents today as a new patient consult for low back pain. She was [facility] here [facility] radiofrequency [facility]. The one her to have it here due to her medical condition for which she has a pacemaker defibrillator. She has a weak heart secondary to history of POTS. She reports she does not have any problems with her heart at this time. She does not think her defibrillators when off in the past. As for her pain she has back pain going across the low back and in to the thoracic spine. She feels pain across the low back which is sharp shooting in nature is worse with standing for prolonged periods such as when doing dishes. She feels that she cannot walk very far because of the pain. She denies any lower extremity radicular symptoms. She has had bilateral total knee replacements in the past and has some knee pain. He reports that she is on any blood thinning medications at this time. She is interested in having a radiofrequency ablation because she had excellent relief from the medial branch blocks. She has had a history of back surgery many years ago and had a L4-L5 laminectomy Past Medical History Past Medical History: Cancer, Fibromyalgia, Hyperlipidemia, Hypertension, Osteoarthritis (OA), Thyroid Disorder Additional Past Medical History / Comment(s): POTS,MTHFR mutation, hx melanoma History of Any Multi-Drug Resistant Organisms: None Reported Past Surgical History: AICD, Back Surgery, Heart Catheterization, Hysterectomy, Joint Replacement, Orthopedic Surgery Additional Past Surgical History / Comment(s): bilateral knee replacement, and bilateral shoulders, joint rt thumb replaced and revised. Heart cath 15 years ago with no stents. Right knee revision in 2016. Back surgery 5 years ago. Past Anesthesia/Blood Transfusion Reactions: Previous Problems w/ Anesthesia, Postoperative Nausea & Vomiting (PONV) Additional Past Anesthesia/Blood Transfusion Reaction / Comm: POTS episode during anesthesia (severe drop in BP after previous knee replacement surgery) Type of Cardiac Device: AICD Device Placement Date:: 02/2016 Smoking Status: Former smoker - Past Family History Sister(s) Family Medical History: Cancer Brother(s) Family Medical History: Cancer Medications and Allergies Home Medications Medication Instructions Recorded Confirmed Type ALPRAZolam [Xanax] 0.25 mg PO BID PRN 01/07/16 10/27/18 History Cyclobenzaprine [Flexeril] 5 mg PO TID PRN 01/07/16 10/27/18 History Nabumetone [Relafen] 1,500 mg PO QAM 01/07/16 10/27/18 History Omeprazole [PriLOSEC] 40 mg PO DAILY 01/07/16 10/27/18 History Liothyronine Sodium [Cytomel] 10 mcg PO DAILY 05/07/16 10/27/18 History Multivitamins, Thera [Multivitamin 1 tab PO DAILY 05/07/16 10/27/18 History (formulary)] Rizatriptan Odt [Maxalt [employer]] 10 mg PO DAILY PRN 05/19/16 10/27/18 History HYDROcodone/APAP 10-325MG [[place] 1 - 2 tab PO Q6H PRN 09/09/16 10/27/18 History 10-325] Atorvastatin Calcium [Lipitor] 10 mg PO HS #30 tab 09/10/16 10/27/18 Rx Aspirin 81 mg PO DAILY #30 chew 09/12/16 10/27/18 Rx Aspirin 325 mg PO DAILY 10/27/18 10/27/18 History Levothyroxine Sodium [Synthroid] 50 mcg PO DAILY 10/27/18 10/27/18 History Metoprolol Succinate (ER) [Toprol 50 mg PO DAILY 10/27/18 10/27/18 History Xl] Sacubitril/Valsartan [Entresto 97 1 tab PO BID 10/27/18 10/27/18 History mg-103 mg Tablet] Sertraline [Zoloft] 200 mg PO DAILY 10/27/18 10/27/18 History Allergies Allergy/AdvReac Type Severity Reaction Status Date / Time codeine Allergy Nausea & Verified 10/27/18 11:14 Vomiting Physical Exam Vitals: Vital Signs Temp Pulse Resp BP 10/28/18 11:57 97.5 F L 77 16 134/89 General: Awake and alert oriented 3 no distress Respiratory exam: No audible wheezing no accessory muscle usage Cardiovascular exam: regular rate, palpable bilateral pulses, no lower extremity edema Abdominal exam: No distention nontender to palpation Cervical spine: Normal alignment, Spurling's negative, facet loading negative Lumbar spine: Surgical scar well-healed, Loss of lumbar lordosis, normal alignment, tender to palpation over bilateral paraspinal muscles, facet loading is positive bilaterally. Straight leg raise is negative. Range of motion is normal with flexion, limited extension of the lumbar spine. Sacroiliac joints: Nontender to palpation, EMMIE is negative, Gaenselon negative Neuro exam: Normal sensation in bilateral upper extremities, deep tendon reflexes are 2+ bilateral upper extremities. Normal sensation in bilateral lower extremities. Deep tendon reflexes are 1+ in lower extremities (total knee replacement bilateral) Psych exam: Cooperative, appropriate mood Assessment and Plan Assessment: Lumbar spondylosis without myelopathy Lumbar postlaminectomy syndrome Plan: At this time we will move forward with the radiofrequency ablation of both sides of L3 through S1. The records from [facility] with the patient that they' ve done medial branch blocks on both sides at L3 through S1 levels. The patient is requesting sedation for the procedure she is scared of needles. I discussed the procedure in detail with the patient in 1 over the risks benefits and alternatives to the procedure. The patient would like to move forward will schedule her for bilateral radiofrequency ablation to be done on the same day given her medical condition. PQRS Measure Charge Sheet PQRS Narrative: Smoking Status Former smoker Blood Pressure 134/89 Pain Intensity [Back] 2 Pain Intensity [Lower Back] 3 Scale Used Numeric (1 - 10) Home Medications: Ambulatory Orders ALPRAZolam [Xanax] 0.25 mg PO BID PRN 01/07/16 Cyclobenzaprine [Flexeril] 5 mg PO TID PRN 01/07/16 Nabumetone [Relafen] 1,500 mg PO QAM 01/07/16 Omeprazole [PriLOSEC] 40 mg PO DAILY 01/07/16 Liothyronine Sodium [Cytomel] 10 mcg PO DAILY 05/07/16 Multivitamins, Thera [Multivitamin (formulary)] 1 tab PO DAILY 05/07/16 Rizatriptan Odt [Maxalt [employer]] 10 mg PO DAILY PRN 05/19/16 HYDROcodone/APAP 10-325MG [[place] 10-325] 1 - 2 tab PO Q6H PRN 09/09/16 Atorvastatin Calcium [Lipitor] 10 mg PO HS #30 tab 09/10/16 Aspirin 81 mg PO DAILY #30 chew 09/12/16 Aspirin 325 mg PO DAILY 10/27/18 Levothyroxine Sodium [Synthroid] 50 mcg PO DAILY 10/27/18 Metoprolol Succinate (ER) [Toprol Xl] 50 mg PO DAILY 10/27/18 Sacubitril/Valsartan [Entresto 97 mg-103 mg Tablet] 1 tab PO BID 10/27/18 Sertraline [Zoloft] 200 mg PO DAILY 10/27/18
== END | disposition home or self-care (01) ==
LOC: PNWHC3 11:47
PROVIDERS: ATTEND Hospitalist
DX: M96.1 Postlaminectomy syndrome, not elsewhere classified (principal); M47.816 Spondylosis without myelopathy or radiculopathy, lumbar region; M79.7 Fibromyalgia; E78.5 Hyperlipidemia, unspecified; I10 Essential (primary) hypertension; M19.90 Unspecified osteoarthritis, unspecified site; Z87.891 Personal history of nicotine dependence; Z79.1 Long term (current) use of non-steroidal anti-inflammatories (NSAID); Z79.899 Other long term (current) drug therapy; Z79.82 Long term (current) use of aspirin; Z88.5 Allergy status to narcotic agent; Z90.710 Acquired absence of both cervix and uterus; Z98.890 Other specified postprocedural states
CPT/HCPCS: 99211

== ENCOUNTER 2018-11-11 06:23 | Day surgery (SDC) | payer BC ==
[2018-11-10 09:31] VITALS: BMI 36.0
[2018-11-11 07:01] VITALS: RESP 16; TEMP 97.6
[2018-11-11] MEDS ORDERED: LACTATED RINGERS 1,000 ML IV ONE (07:08)
[2018-11-11] MEDS ORDERED: LIDOCAINE 1% 20 ML VIAL (10MG/ML) FOR IV START INTRADERMA ONE (07:08)
[2018-11-11] MEDS ORDERED: IV FLUID CONTINUATION 1,000 ML IV ONE (08:06)
[2018-11-11 08:27] VITALS: BP 113/75; PULSE 84
--- NOTE | 2018-11-11 10:35 | P.PCN ---
Date of Procedure: 11/11/18 Surgeon: Sukh Turner Description of Procedure: Procedure(s) Performed: PREOPERATIVE DIAGNOSIS: Lumbar Spondylosis POSTOPERATIVE DIAGNOSIS: Same PROCEDURES: Radiofrequency ablation of bilateral L4, L5, sacral ala with fluoroscopic guidance SURGEON: Sukh Turner MD. ANESTHESIA: Moderate sedation with intravenous 2 mg of and as Laman 100 migrans of fentanyl EBL: Minimal PROCEDURE INDICATION: The patient with low back pain secondary to lumbar facet arthropathy who had more than 50% relief of pain with previous diagnostic lumbar medial branch block. These injections were performed by her primary pain physician. She does have a defibrillator. Therefore, the physician referred her to our office to undergo radio frequency ablation in a hospital setting as he felt it was safer. She is aware of the risks and benefits of the procedure and wishes to proceed forward. PROCEDURE DESCRIPTION / TECHNIQUE: The patient was seen and identified in the preoperative area. Risks, benefits, complications, including but not limited to risk of infection ,bleeding , allergic reactions to the medications and incomplete pain relief , and alternatives were discussed with the patient, the patient agreed to proceed with the procedure and signed the consent. IV was started. The operative site was marked. Patient was taken to the OR and time out was completed. The patient was placed in the prone position on the procedure table. The lumber area was prepped and draped in the usual sterile fashion. . Vital signs were closely monitored during the procedure .IV sedation was used during the procedure to decrease patients anxiety. Using AP and then oblique fluoroscopy, the ``eye of the Gian dog corresponding to the connection between the superior and transverse articular processes of the above-mentioned levels were identified, marked, and localized with 1% lidocaine. Subsequently, a 20 [id number] radiofrequency cannula with a 10-mm active tip was advanced guided by fluoroscopy to each of the ``eyes of the Gian dog at each site then underwent sensory testing at 50 Hz and 0 to 1 volt and motor testing at 2.5 Hz and 0 to 3 volt with local stimulation, but no radicular symptoms down the legs. Then the sites underwent radiofrequency thermocoagulation at 80 degrees celsius for 90 seconds after injecting 0.5 ml of PF lidocaine 1%. then After the thermocoagulation done , 1 ml of the block solution containing depomedrol 40 mg and 4 ml of marcaine 0.5% was injected in divided doses at each levels after negative aspiration of CSF and blood and with no paresthesias. Sterile dressings were applied. COMPLICATIONS: No acute complications. DISPOSITION / PLANS: The patient was placed in a supine position and transferred to the recovery area in a stable condition for observation and was discharged from the recovery room after meeting discharge criteria. Home discharge instructions given to the patient by the staff. The patient was reexamined prior to discharge. She will follow-up with her primary pain physician.
--- NOTE | 2018-11-12 04:10 | FL ---
EXAMINATION TYPE: FL guided pain mgmt statistic DATE OF EXAM: 11/11/2018 FLUOROSCOPY Fluoroscopy time of seconds was used during bilaterally lumbar facet radiofrequency ablation. 2 imag e/s document/s the procedure.
== END 2018-11-11 08:53 | disposition home or self-care (01) ==
LOC: ORPAIN 06:23
PROVIDERS: ATTEND Pain Medicine Pain Medicine
DX: M47.816 Spondylosis without myelopathy or radiculopathy, lumbar region (principal); M96.1 Postlaminectomy syndrome, not elsewhere classified; E72.12 Methylenetetrahydrofolate reductase deficiency; Z96.653 Presence of artificial knee joint, bilateral; M79.7 Fibromyalgia; E78.5 Hyperlipidemia, unspecified; I10 Essential (primary) hypertension; M19.90 Unspecified osteoarthritis, unspecified site; E07.9 Disorder of thyroid, unspecified; Z85.820 Personal history of malignant melanoma of skin; Z87.891 Personal history of nicotine dependence; Z79.82 Long term (current) use of aspirin; Z79.890 Hormone replacement therapy; Z95.810 Presence of automatic (implantable) cardiac defibrillator; Z88.5 Allergy status to narcotic agent; Z79.899 Other long term (current) drug therapy
CPT/HCPCS: 64635; 64636; J2250; J1030; J2001; J3010; 99152

== ENCOUNTER → 2018-12-22 | Outpatient (CLI) | payer BC ==
--- NOTE | 2018-12-22 14:26 | CT ---
EXAMINATION TYPE: CT thoracic spine wo con DATE OF EXAM: 12/22/2018 COMPARISON: CT chest June 21, 2012 HISTORY: mid back pain/ hx scoliosis CT DLP: 775.1 mGycm Automated exposure control for dose reduction was used. FINDINGS: Thoracic spine redemonstrates S-shaped scoliosis that is levoconvex in curvature centered in the uppe r to midthoracic spine and dextroconvex in curvature centered in the lower thoracic spine. No acute f racture or dislocation is seen. There is moderate to advanced disc space narrowing with endplate scle rosis and vacuum disc phenomenon and moderate left lateral spurring at the left T10-T11 level with pr ogression from 2012 CT. Vertebral body heights are maintained. There is additional mild to moderate m ultilevel disc space narrowing with mild multilevel anterior spurring. Demineralization is noted. Spi nal canal is grossly preserved. Review of axial and sagittal images shows no large posterior disc herniation. Small disc herniations felt present at T5-T6 and T7-T8 level on sagittal images mildly effacing anterior thecal sac. There i s vacuum disc phenomenon noted at T12-L1 level. There is persistent moderate size fixed hiatal hernia with some surgical clips. There is new cardiac pacemaker. IMPRESSION: S-SHAPED SCOLIOSIS WITH MULTILEVEL DEGENERATIVE CHANGES DETAILED ABOVE, SOME PROGRESSION FROM 2012 CT NOTED.
== END | disposition home or self-care (01) ==
LOC: RADCTMAIN 13:38
PROVIDERS: ATTEND Physical Medicine & Rehabilitation
DX: M99.72 Connective tissue and disc stenosis of intervertebral foramina of thoracic region (principal); M47.814 Spondylosis without myelopathy or radiculopathy, thoracic region; M41.84 Other forms of scoliosis, thoracic region
CPT/HCPCS: 72128

== ENCOUNTER → 2019-10-28 | Outpatient (CLI) | payer BC ==
--- NOTE | 2019-10-28 16:32 | CT ---
EXAMINATION TYPE: CT lumbar spine wo con DATE OF EXAM: 10/28/2019 COMPARISON: 08/13/2017 HISTORY: low back pain, no injury CT DLP: 1141.[address] of the lumbar spine was performed. Bone and soft tissue window settings are submitted as well as coronal and sagittal reconstructions. L1-L2: Normal disc space height. No disc herniation protrusion or central stenosis. No facet joint arthropathy. No evidence for foraminal encroachment. L2-L3: There is a large broad-based disc bulge and facet arthropathy that create mild bilateral neura l foraminal narrowing. Extensive intervertebral disc space narrowing is seen as well as opposing surf jacobo sclerosis due to the acute angle scoliosis. No spinal canal stenosis. L3-L4: Small broad-based disc bulge is present in combination with facet arthropathy and ligamentum f lavum hypertrophy minimally narrowing the neural foramen. Mild spinal canal stenosis is present. L4-L5: Grade 2 anterolisthesis and facet arthropathy in combination with a broad-based disc bulge cre ate severe bilateral neural foraminal narrowing. There is also moderate resultant spinal canal stenos is. L5-S1: Normal disc space height. No disc herniation protrusion or central stenosis. No facet joint arthropathy. No evidence for foraminal encroachment. Severe scoliosis convex to the left. Grade 1 retrolisthesis of L2 on L3 measuring 3 mm. Grade 1 anter olisthesis L4 and L5 measuring 8 mm unchanged from prior study. Bilateral pars defects noted at this level. Multilevel endplate sclerosis and spondylosis. Severe facet joint arthropathy. No acute fractu re seen. IMPRESSION: 1. Multilevel degenerative disc disease as discussed above.
== END | disposition home or self-care (01) ==
LOC: RADCTMAIN 16:06
PROVIDERS: ATTEND Internal Medicine
DX: M51.36 Other intervertebral disc degeneration, lumbar region (principal)
CPT/HCPCS: 72131

== ENCOUNTER → 2020-12-19 | Outpatient (CLI) | payer MEDICARE ==
--- NOTE | 2020-12-19 12:40 | MM ---
Reason for exam: screening (asymptomatic). Last mammogram was performed 3 years and 7 months ago. History: Patient has history of other cancer at age 46. Benign core biopsy of the left breast. Taking estrogen beginning at age 59. Physical Findings: A clinical breast exam by your physician is recommended on an annual basis and results should be correlated with mammographic findings. MG 3D Screening Mammo W/Cad Bilateral CC and MLO view(s) were taken. Prior study comparison: May 06, 2017, bilateral MG 3d diag mammo w/cad TYRA. The breast tissue is heterogeneously dense. This may lower the sensitivity of mammography. There are benign appearing round calcifications bilaterally. There is chronic nodularity bilaterally. There is no discrete abnormality. Left axillary pacemaker redemonstrated. ASSESSMENT: Benign, BI-RAD 2 RECOMMENDATION: Routine screening mammogram of both breasts in 1 year.
== END | disposition home or self-care (01) ==
LOC: RADMAMWWP 07:45
PROVIDERS: ATTEND Internal Medicine
DX: Z12.31 Encounter for screening mammogram for malignant neoplasm of breast (principal)
CPT/HCPCS: 77063; 77067

== ENCOUNTER → 2021-01-01 | Outpatient (CLI) | payer MEDICARE | LOC: CPPFTMAIN 09:23 | PROVIDERS: ATTEND Internal Medicine | DX: J45.909 Unspecified asthma, uncomplicated (principal); R19.00 Intra-abdominal and pelvic swelling, mass and lump, unspecified site; Z87.891 Personal history of nicotine dependence | CPT/HCPCS: 94060; 94726; 94729 ==

== ENCOUNTER → 2021-01-31 | Outpatient (CLI) | payer MEDICARE ==
--- NOTE | 2021-01-31 16:55 | US ---
EXAMINATION TYPE: US pelvic complete DATE OF EXAM: 01/31/2021 COMPARISON: NONE CLINICAL HISTORY: R19.00 Intra-abdominal and pelvic swelling, mass. Known right ovarian cyst, no pain , assess for size TECHNIQUE: TA. Transabdominal sonographic images of the pelvis were acquired. Date of LMP: hysterectomy EXAM MEASUREMENTS: Uterus: Surgically absent Endometrial Stripe: Surgically absent Right Ovary: 3.7 x 4.2 x 2.6 cm Left Ovary: not seen 1. Uterus Surgically absent 2. Endometrium: Surgically absent 3. Right Ovary: 2.7 x 4.2 x 2.0cm simple appearing cyst lies inferior to bladder. 4. Left Ovary: not seen due to bowel gas 5. Bilateral Adnexa: wnl 6. Posterior cul-de-sac: wnl IMPRESSION: 1. No free fluid in the cul-de-sac. Status post hysterectomy. 2. Right ovarian cyst is simple appearing and measures 4.2 cm. In this 65-year-old postmenopausal fem rosalinda, . History states patient has known ovarian cyst but no prior report is available. Follow-up stud y in 3 months is recommended.
== END | disposition home or self-care (01) ==
LOC: RADUSWWP 15:41
PROVIDERS: ATTEND Family Medicine
DX: N83.201 Unspecified ovarian cyst, right side (principal); Z90.710 Acquired absence of both cervix and uterus; Z78.0 Asymptomatic menopausal state
CPT/HCPCS: 76856

== ENCOUNTER 2021-04-03 15:05 | Observation (INO) | payer MEDICARE ==
[2021-04-03] MEDS ORDERED: SODIUM CHLORIDE 0.9% 1,000 ML IV STA (15:30)
[2021-04-03 15:44] LABS: Basophils % (A) 1 %; Eosinophils # (A) 0.1 k/uL (0-0.7); Eosinophils % (A) 2 %; HCT 40.5 % (34.0-46.0); HGB 13.5 gm/dL (11.4-16.0); Lymphocytes # (A) 1.1 k/uL (1.0-4.8); Lymphocytes % (A) 17 %; MCH 30.6 pg (25.0-35.0); MCHC 33.3 g/dL (31.0-37.0); MCV 91.9 fL (80.0-100.0); Mean Platelet Volume 7.9; Monocytes # (A) 0.4 k/uL (0-1.0); Monocytes % (A) 7 %; Neutrophils # (A) 4.6 k/uL (1.3-7.7); Neutrophils % (A) 71 %; Platelet Count 314 k/uL (150-450); RDW 13.6 % (11.5-15.5); WBC 6.4 k/uL (3.8-10.6)
[2021-04-03 15:53] LABS: ALT 18 U/L (4-34); AST 34 U/L (14-36); African American GFR (CKD) >90 (>60 ml/min/1.73 sqM); Albumin 4.2 g/dL (3.5-5.0); Alkaline Phosphatase 67 U/L (38-126); Anion Gap 12 mmol/L; Blood Urea Nitrogen 15 mg/dL (7-17); Calcium 9.1 mg/dL (8.4-10.2); Carbon Dioxide 19 mmol/L (22-30); Chloride 109 mmol/L (98-107); Glucose 107 mg/dL (74-99); Magnesium 1.9 mg/dL (1.6-2.3); Non-African American GFR(CKD) >90 (>60 ml/min/1.73 sqM); Potassium 3.9 mmol/L (3.5-5.1); Sodium 140 mmol/L (137-145); Total Bilirubin 0.7 mg/dL (0.2-1.3); Total Protein 6.5 g/dL (6.3-8.2)
--- NOTE | 2021-04-03 15:58 | ED ---
General Adult HPI - General Chief complaint: Weakness Stated complaint: SOB Time Seen by Provider: 04/03/21 15:22 Source: patient, EMS Mode of arrival: EMS Limitations: no limitations - History of Present Illness Initial comments: Patient is a 65-year-old female, with history of POTS, asthma, hypertension, presenting to the emergency department via EMS with complaints of weakness, lightheadedness and shortness of breath. Patient states she has been having more episodes of her POTS over the past few months. Patient is supposed to see a drywall installer in the next couple of days. She does follow with cardiology. She states that she felt an episode coming on so she went to sit down, her episodes usually only lasts 10-20 minutes, this was lasting longer and she was not feeling improvement so she called EMS for evaluation. She denies any falls. She denies any chest pain, she does admit to intermittent shortness of breath. She admits to some tingling into her bilateral hands and legs. She denies any nausea or vomiting, no abdominal pain. She feels general weakness. No fevers or chills. She has no further complaints at this time. Patient's vitals are stable upon arrival. - Related Data Home Medications Medication Instructions Recorded Confirmed ALPRAZolam [Xanax] 0.25 mg PO BID PRN 01/07/16 04/03/21 Cyclobenzaprine [Flexeril] 5 mg PO TID PRN 01/07/16 04/03/21 Nabumetone [Relafen] 1,500 mg PO DAILY 01/07/16 04/03/21 Liothyronine Sodium [Cytomel] 10 mcg PO DAILY 05/07/16 04/03/21 Multivitamins, Thera [Multivitamin 1 tab PO DAILY 05/07/16 04/03/21 (formulary)] Rizatriptan Odt [Maxalt [employer]] 10 mg PO DAILY PRN 05/19/16 04/03/21 HYDROcodone/APAP 10-325MG [[place] 1 tab PO Q6H PRN 09/09/16 04/03/21 10-325] Levothyroxine Sodium [Synthroid] 50 mcg PO MOTUTHSA 10/27/18 04/03/21 Sacubitril/Valsartan [Entresto 97 1 tab PO BID 10/27/18 04/03/21 mg-103 mg Tablet] Sertraline [Zoloft] 150 mg PO DAILY 10/27/18 04/03/21 Apixaban [Eliquis] 5 mg PO BID 04/03/21 04/03/21 Cannabis Chewable 30 mg PO BID PRN 04/03/21 04/03/21 Fluticasone/Umeclidin/Vilanter 1 puff INHALATION RT-DAILY 04/03/21 04/03/21 [Trelegy Ellipta 200-62.5-25] Levothyroxine Sodium [Synthroid] 75 mcg PO SUWEFR 04/03/21 04/03/21 Metoprolol Succinate [Toprol XL] 100 mg PO DAILY 04/03/21 04/03/21 Omeprazole 20 mg PO DAILY 04/03/21 04/03/21 methylPREDNISolone Dose Pack See Taper PO DIRECTED 04/03/21 04/03/21 [Medrol Dose Pack] Allergies Allergy/AdvReac Type Severity Reaction Status Date / Time codeine Allergy Nausea & Verified 04/03/21 15:18 Vomiting Review of Systems ROS Statement: Those systems with pertinent positive or pertinent negative responses have been documented in the HPI. ROS Other: All systems not noted in ROS Statement are negative. Past Medical History Past Medical History: Asthma, Cancer, Fibromyalgia, Hyperlipidemia, Hypertension, Osteoarthritis (OA), Thyroid Disorder Additional Past Medical History / Comment(s): POTS,MTHFR mutation, hx melanoma, Defibillator, exercise-induced asthma. History of Any Multi-Drug Resistant Organisms: None Reported Past Surgical History: AICD, Back Surgery, Heart Catheterization, Hysterectomy, Joint Replacement, Orthopedic Surgery Additional Past Surgical History / Comment(s): bilateral knee replacement, and bilateral shoulders, joint rt thumb replaced and revised. Heart cath 15 years ago with no stents. Right knee revision in 2016. Back surgery 5 years ago. Prev ious pain injections. Past Anesthesia/Blood Transfusion Reactions: Previous Problems w/ Anesthesia, Postoperative Nausea & Vomiting (PONV) Additional Past Anesthesia/Blood Transfusion Reaction / Comment(s): POTS episode during anesthesia (severe drop in BP after previous knee replacement surgery) Type of Cardiac Device: AICD Device Placement Date:: 02/2016 Past Psychological History: Depression Past Alcohol Use History: Occasional Past Drug Use History: None Reported - Past Family History Sister(s) Family Medical History: Cancer Brother(s) Family Medical History: Cancer General Exam - General Exam Comments Initial Comments: GENERAL: Patient is well-developed and well-nourished. Patient is nontoxic and in mild distress. HEAD: Atraumatic, normocephalic. EYES: Pupils equal round and reactive to light, extraocular movements intact, sclera anicteric, conjunctiva are normal. Eyelids were unremarkable. ENT: TMs normal, nares patent, oropharynx clear without exudates. Moist mucous membranes. NECK: Normal range of motion, supple without lymphadenopathy or JVD. LUNGS: Unlabored respirations. Breath sounds clear to auscultation bilaterally and equal. No wheezes rales or rhonchi. HEART: Regular rate and rhythm without murmurs, rubs or gallops. ABDOMEN: Soft, nontender, normoactive bowel sounds. No guarding, no rebound. No masses appreciated. : Deferred MUSCULOSKELETAL: Normal extremities with adequate strength and normal range of motion, no pitting or edema. No clubbing or cyanosis. NEUROLOGICAL: Patient is alert and oriented x 3. Motor and sensory are also intact. Cranial nerves II through XII grossly intact. Symmetrical smile. Normal speech, normal gait. PSYCH: Normal mood, normal affect. SKIN: Warm, Dry, normal turgor, no rashes or lesions noted. Limitations: no limitations Course Vital Signs 04/03/21 04/03/21 04/03/21 15:07 15:11 15:30 Temperature Pulse Rate 71 67 Pulse Rate [ Sitting] Pulse Rate [ Standing] Pulse Rate [ Supine] Respiratory 18 18 Rate Blood Pressure 104/58 104/58 Blood Pressure [Sitting] Blood Pressure [Standing] Blood Pressure [Supine] O2 Sat by Pulse 100 100 98 Oximetry 04/03/21 04/03/21 04/03/21 15:32 17:00 18:30 Temperature 97.3 F L Pulse Rate 66 Pulse Rate [ 69 Sitting] Pulse Rate [ 72 Standing] Pulse Rate [ 68 Supine] Respiratory 18 Rate Blood Pressure 109/60 Blood Pressure 119/71 [Sitting] Blood Pressure 132/91 [Standing] Blood Pressure 128/62 [Supine] O2 Sat by Pulse 100 Oximetry EKG Findings - EKG Comments: EKG Findings:: Normal sinus rhythm, left anterior fascicular block, prolonged QT, no signs of acute ST segment elevation. Compared to previous on 02/16/2017. Ventricular rate 76, SC interval 202, QTC 460. Medical Decision Making - Medical Decision Making Patient is a 65-year-old female with history of POTS, hypertension, presenting via EMS with complaints of lightheadedness, weakness, shortness of breath that lasted longer and normal. Shes been having more frequent "POTS attacks" and this felt similar nature but it was lasting longer than normal since called EMS for evaluation. No chest pain, her EKG shows her vitals are stable upon arri yoko. Labs are within normal limits including a normal troponin, BNP is 118, urine shows no evidence of infection, mild dehydration with ketones are 2+. Orthostatics were taken, these are within normal limits. Upon reexamination, patient states she does feel improvement but still feels weak and feels like this is lasting longer than normal. She has concerns about going home at this time. Patient will be admitted for observation, echo and serial troponins will be ordered. Patient accepted by Dr. Henderson. Case discussed with Dr. Cazares. - Lab Data Result diagrams: 04/03/21 15:32 04/03/21 15:32 Lab Results 04/03/21 04/03/21 04/03/21 Range/Units 15:32 15:32 15:32 WBC 6.4 (3.8-10.6) k/uL RBC 4.40 (3.80-5.40) m/uL Hgb 13.5 (11.4-16.0) gm/dL Hct 40.5 (34.0-46.0) % MCV 91.9 (80.0-100.0) fL MCH 30.6 (25.0-35.0) pg MCHC 33.3 (31.0-37.0) g/dL RDW 13.6 (11.5-15.5) % Plt Count 314 (150-450) k/uL MPV 7.9 Neutrophils % 71 % Lymphocytes % 17 % Monocytes % 7 % Eosinophils % 2 % Basophils % 1 % Neutrophils # 4.6 (1.3-7.7) k/uL Lymphocytes # 1.1 (1.0-4.8) k/uL Monocytes # 0.4 (0-1.0) k/uL Eosinophils # 0.1 (0-0.7) k/uL Basophils # 0.0 (0-0.2) k/uL PT 10.8 (9.0-12.0) sec INR 1.0 (<1.2) APTT 25.9 (22.0-30.0) sec Sodium 140 (137-145) mmol/L Potassium 3.9 (3.5-5.1) mmol/L Chloride 109 H (98-107) mmol/L Carbon Dioxide 19 L (22-30) mmol/L Anion Gap 12 mmol/L BUN 15 (7-17) mg/dL Creatinine 0.61 (0.52-1.04) mg/dL Est GFR (CKD-EPI)AfAm >90 (>60 ml/min/1.73 sqM) Est GFR (CKD-EPI)NonAf >90 (>60 ml/min/1.73 sqM) Glucose 107 H (74-99) mg/dL Plasma Lactic Acid [place] (0.7-2.0) mmol/L Calcium 9.1 (8.4-10.2) mg/dL Magnesium 1.9 (1.6-2.3) mg/dL Total Bilirubin 0.7 (0.2-1.3) mg/dL AST 34 (14-36) U/L ALT 18 (4-34) U/L Alkaline Phosphatase 67 (38-126) U/L Troponin I (0.000-0.034) ng/mL NT-Pro-B Natriuret Pep pg/mL Total Protein 6.5 (6.3-8.2) g/dL Albumin 4.2 (3.5-5.0) g/dL Urine Color Urine Appearance (Clear) Urine pH (5.0-8.0) Ur Specific [place] (1.001-1.035) Urine Protein (Negative) Urine Glucose (UA) (Negative) Urine Ketones (Negative) Urine Blood (Negative) Urine Nitrite (Negative) Urine Bilirubin (Negative) Urine Urobilinogen (<2.0) mg/dL Ur Leukocyte Esterase (Negative) Urine RBC (0-5) /hpf Urine WBC (0-5) /hpf Ur Squamous Epith Cells (0-4) /hpf Urine Bacteria (None) /hpf Urine Mucus (None) /hpf 04/03/21 04/03/21 04/03/21 Range/Units 15:32 15:32 15:32 WBC (3.8-10.6) k/uL RBC (3.80-5.40) m/uL Hgb (11.4-16.0) gm/dL Hct (34.0-46.0) % MCV (80.0-100.0) fL MCH (25.0-35.0) pg MCHC (31.0-37.0) g/dL RDW (11.5-15.5) % Plt Count (150-450) k/uL MPV Neutrophils % % Lymphocytes % % Monocytes % % Eosinophils % % Basophils % % Neutrophils # (1.3-7.7) k/uL Lymphocytes # (1.0-4.8) k/uL Monocytes # (0-1.0) k/uL Eosinophils # (0-0.7) k/uL Basophils # (0-0.2) k/uL PT (9.0-12.0) sec INR (<1.2) APTT (22.0-30.0) sec Sodium (137-145) mmol/L Potassium (3.5-5.1) mmol/L Chloride (98-107) mmol/L Carbon Dioxide (22-30) mmol/L Anion Gap mmol/L BUN (7-17) mg/dL Creatinine (0.52-1.04) mg/dL Est GFR (CKD-EPI)AfAm (>60 ml/min/1.73 sqM) Est GFR (CKD-EPI)NonAf (>60 ml/min/1.73 sqM) Glucose (74-99) mg/dL Plasma Lactic Acid [place] 2.0 (0.7-2.0) mmol/L Calcium (8.4-10.2) mg/dL Magnesium (1.6-2.3) mg/dL Total Bilirubin (0.2-1.3) mg/dL AST (14-36) U/L ALT (4-34) U/L Alkaline Phosphatase (38-126) U/L Troponin I <0.012 (0.000-0.034) ng/mL NT-Pro-B Natriuret Pep 118 pg/mL Total Protein (6.3-8.2) g/dL Albumin (3.5-5.0) g/dL Urine Color Urine Appearance (Clear) Urine pH (5.0-8.0) Ur Specific [place] (1.001-1.035) Urine Protein (Negative) Urine Glucose (UA) (Negative) Urine Ketones (Negative) Urine Blood (Negative) Urine Nitrite (Negative) Urine Bilirubin (Negative) Urine Urobilinogen (<2.0) mg/dL Ur Leukocyte Esterase (Negative) Urine RBC (0-5) /hpf Urine WBC (0-5) /hpf Ur Squamous Epith Cells (0-4) /hpf Urine Bacteria (None) /hpf Urine Mucus (None) /hpf 04/03/21 Range/Units 17:29 WBC (3.8-10.6) k/uL RBC (3.80-5.40) m/uL Hgb (11.4-16.0) gm/dL Hct (34.0-46.0) % MCV (80.0-100.0) fL MCH (25.0-35.0) pg MCHC (31.0-37.0) g/dL RDW (11.5-15.5) % Plt Count (150-450) k/uL MPV Neutrophils % % Lymphocytes % % Monocytes % % Eosinophils % % Basophils % % Neutrophils # (1.3-7.7) k/uL Lymphocytes # (1.0-4.8) k/uL Monocytes # (0-1.0) k/uL Eosinophils # (0-0.7) k/uL Basophils # (0-0.2) k/uL PT (9.0-12.0) sec INR (<1.2) APTT (22.0-30.0) sec Sodium (137-145) mmol/L Potassium (3.5-5.1) mmol/L Chloride (98-107) mmol/L Carbon Dioxide (22-30) mmol/L Anion Gap mmol/L BUN (7-17) mg/dL Creatinine (0.52-1.04) mg/dL Est GFR (CKD-EPI)AfAm (>60 ml/min/1.73 sqM) Est GFR (CKD-EPI)NonAf (>60 ml/min/1.73 sqM) Glucose (74-99) mg/dL Plasma Lactic Acid [place] (0.7-2.0) mmol/L Calcium (8.4-10.2) mg/dL Magnesium (1.6-2.3) mg/dL Total Bilirubin (0.2-1.3) mg/dL AST (14-36) U/L ALT (4-34) U/L Alkaline Phosphatase (38-126) U/L Troponin I (0.000-0.034) ng/mL NT-Pro-B Natriuret Pep pg/mL Total Protein (6.3-8.2) g/dL Albumin (3.5-5.0) g/dL Urine Color Dark Yellow Urine Appearance Cloudy H (Clear) Urine pH 6.5 (5.0-8.0) Ur Specific [place] 1.015 (1.001-1.035) Urine Protein Negative (Negative) Urine Glucose (UA) Negative (Negative) Urine Ketones 2+ H (Negative) Urine Blood Moderate H (Negative) Urine Nitrite Negative (Negative) Urine Bilirubin Negative (Negative) Urine Urobilinogen 2.0 (<2.0) mg/dL Ur Leukocyte Esterase Negative (Negative) Urine RBC 3 (0-5) /hpf Urine WBC 2 (0-5) /hpf Ur Squamous Epith Cells 9 H (0-4) /hpf Urine Bacteria Rare H (None) /hpf Urine Mucus Rare H (None) /hpf Disposition Clinical Impression: POTS (postural orthostatic tachycardia syndrome), Dehydration, Weakness Disposition: ADMITTED IP TO THIS [facility] Condition: Stable Referrals: Terrie Shea MD [Primary Care Provider] - 1-2 days Decision Date: 04/03/21 Decision Time: 18:44
[2021-04-03 15:59] LABS: Partial Thromboplastin Time 25.9 sec (22.0-30.0); Prothrombin Time 10.8 sec (9.0-12.0)
--- NOTE | 2021-04-03 16:03 | XR ---
EXAMINATION TYPE: XR chest 2V DATE OF EXAM: 04/03/2021 COMPARISON: 02/16/2017 HISTORY: Shortness of breath TECHNIQUE: Frontal and lateral views of the chest are obtained. FINDINGS: Scattered senescent parenchymal changes noted. No evidence for infiltrate. No evidence for atelectasis. Heart size is stable. Mediastinal structures are stable and grossly unremarkable. No evidence for hilar prominence. Degenerative changes dorsal spine. IMPRESSION: 1. No evidence for acute pulmonary disease.
[2021-04-03 17:55] LABS: Appearance,Urine Cloudy (Clear); Bacteria,Urine Rare /hpf; Bilirubin,Urine Negative (Negative); Blood,Urine Moderate (Negative); Color,Urine Dark Yellow; Glucose,Urine (UA) Negative (Negative); Ketones,Urine 2+ (Negative); Leukocyte Esterase,Urine Negative (Negative); Mucus,Urine Rare /hpf; Nitrite,Urine Negative (Negative); PH, Urine 6.5 (5.0-8.0); Protein,Urine Negative (Negative); RBC,Urine 3 /hpf (0-5); Specific Gravity,Urine 1.015 (1.001-1.035); Squamous Epithelial Cell,Urine 9 /hpf (0-4); WBC,Urine 2 /hpf (0-5)
[2021-04-03] MEDS ORDERED: ONDANSETRON 4 MG/2 ML VIAL IVP PRN (18:38)
[2021-04-03] MEDS ORDERED: NALOXONE 0.4 MG/ML 1 ML VIAL IV PRN (18:38)
[2021-04-03] MEDS: SODIUM CHLORIDE 0.9% 1,000 ML IV SCH (19:55)
[2021-04-04] MEDS ORDERED: ASPIRIN 81 MG PO STA (00:16)
[2021-04-04] MEDS ORDERED: ALPRAZolam 0.25 MG TAB PO PRN (00:16)
--- NOTE | 2021-04-04 00:18 | P.HPIM ---
History of Present Illness H&P Date: 04/03/21 The patient is a 65-year-old female with a PMH of POTS, status post AICD placement, paroxysmal A. fib on Eliquis, hypertension, hyperlipidemia, hypothyroidism, and asthma presented to the emergency room with complaints of chest discomfort, shortness of breath, lightheadedness, and weakness. The pat ient reports that over the past 2 or 3 months, her typical POTS episodes have been worsening, now lasting longer and are associated with dizziness and palpitations. The patient reports that her most recent episode was this afternoon at around 2 PM when she tried to stand up, and experienced substernal chest discomfort with associated shortness of breath, and lightheadedness. Patient notes that previously her symptoms would resolve within 1-2 minutes but this time continued for 20 minutes, at which time she became alarmed and activated EMS. She denied experiencing loss of consciousness or falls. She reports that the chest discomfort is somewhat achy in nature, 4 out of 10 at maximal intensity, substernal, nonradiating, with associated lightheadedness. She also reports tingling of her bilateral hands and legs. She also reports feeling worn down which she states is typical of her episodes. Denied cough, fever, chills. Denied abdominal pain, nausea, vomiting. At time of interview, she reports that her chest pain had improved to a 2 out of 10 and she had no additional complaints. Upon presentation to the emergency room, her vitals were BP 104/58, pulse 71, respiratory rate 18, and SpO2 100% on room air. EKG in the emergency room revealed a normal sinus rhythm at 76 bpm with left anterior fascicular block with a prolonged QTC at 517 ms. Chest x-ray was unremarkable. Laboratory evaluation was reviewed and was remarkable for CO2 of 19, lactic acid 2.0, troponin less than 0.012, proBNP 118. Review of systems: Pertinent positives and negatives as discussed in HPI, a complete review of systems was performed and all other systems are negative. Physical examination: General: non toxic, no distress, appears at stated age, obese Derm: no unusual rashes/lesions no unusual ecchymoses, warm, dry Head: atraumatic, normocephalic, symmetric Eyes: EOMI, no lid lag, anicteric sclera, pupils equal round reactive to light ENT: Nose and ears atraumatic, no thrush, no pharyngeal erythema Neck: No thyromegaly, no cervical lymphadenopathy, trachea midline, supple Mouth: no lip lesion, mucus membranes moist Cardiovascular: S1S2 reg, no murmur, positive posterior tibial pulse bilateral, no edema, capillary refill less than 2 seconds Lungs: CTA bilateral, no rhonchi, no rales , no accessory muscle use Abdominal: soft, nontender to palpation, no guarding, no appreciable organ omegaly, normal bowel sounds Ext: no gross muscle atrophy, muscle strength 5 out of 5 in all 4 extremities grossly, no contractures, Neuro: CN II-XI grossly intact, light touch intact all 4 extremities, finger to nose within normal limits, Psych: Alert, oriented, appropriate affect Assessment/plan Chest pain, rule out ACS -Trend troponin -Cardiac monitoring -Cardiology consult -Continue with aspirin Prolonged QTC -Avoid QT prolonging agents Chronic conditions: Hypertension, hyperlipidemia, hypothyroidism, A. fib paroxysmal, s/p AICD placement -Continue home meds DVT prophylaxis -Eliquis The patient is admitted with an anticipated less than 2 midnight stay for evaluation of chest pain CODE STATUS: Full Code Discussed with: Patient Anticipated discharge date: in am Anticipated discharge place: Home Past Medical History Past Medical History: Asthma, Cancer, Fibromyalgia, Hyperlipidemia, Hypertension, Osteoarthritis (OA), Thyroid Disorder Additional Past Medical History / Comment(s): POTS,MTHFR mutation, hx melanoma, Defibillator, exercise-induced asthma. History of Any Multi-Drug Resistant Organisms: None Reported Past Surgical History: AICD, Back Surgery, Heart Catheterization, Hysterectomy, Joint Replacement, Orthopedic Surgery Additional Past Surgical History / Comment(s): bilateral knee replacement, and bilateral shoulders, joint rt thumb replaced and revised. Heart cath 15 years ago with no stents. Right knee revision in 2016. Back surgery 5 years ago. Previous pain injections. Past Anesthesia/Blood Transfusion Reactions: Previous Problems w/ Anesthesia, Postoperative Nausea & Vomiting (PONV) Additional Past Anesthesia/Blood Transfusion Reaction / Comment(s): POTS episode during anesthesia (severe drop in BP after previous knee replacement surgery) Type of Cardiac Device: AICD Device Placement Date:: 02/2016 Past Psychological History: Depression Past Alcohol Use History: Occasional Past Drug Use History: None Reported - Past Family History Sister(s) Family Medical History: Cancer Brother(s) Family Medical History: Cancer, Hypertension Medications and Allergies Home Medications Medication Instructions Recorded Confirmed Type ALPRAZolam [Xanax] 0.25 mg PO BID PRN 01/07/16 04/03/21 History Cyclobenzaprine [Flexeril] 5 mg PO TID PRN 01/07/16 04/03/21 History Nabumetone [Relafen] 1,500 mg PO DAILY 01/07/16 04/03/21 History Liothyronine Sodium [Cytomel] 10 mcg PO DAILY 05/07/16 04/03/21 History Multivitamins, Thera [Multivitamin 1 tab PO DAILY 05/07/16 04/03/21 History (formulary)] Rizatriptan Odt [Maxalt [employer]] 10 mg PO DAILY PRN 05/19/16 04/03/21 History HYDROcodone/APAP 10-325MG [[place] 1 tab PO Q6H PRN 09/09/16 04/03/21 History 10-325] Levothyroxine Sodium [Synthroid] 50 mcg PO MOTUTHSA 10/27/18 04/03/21 History Sacubitril/Valsartan [Entresto 97 1 tab PO BID 10/27/18 04/03/21 History mg-103 mg Tablet] Sertraline [Zoloft] 150 mg PO DAILY 10/27/18 04/03/21 History Apixaban [Eliquis] 5 mg PO BID 04/03/21 04/03/21 History Cannabis Chewable 30 mg PO BID PRN 04/03/21 04/03/21 History Fluticasone/Umeclidin/Vilanter 1 puff INHALATION RT-DAILY 04/03/21 04/03/21 History [Trelegy Ellipta 200-62.5-25] Levothyroxine Sodium [Synthroid] 75 mcg PO SUWEFR 04/03/21 04/03/21 History Metoprolol Succinate [Toprol XL] 100 mg PO DAILY 04/03/21 04/03/21 History Omeprazole 20 mg PO DAILY 04/03/21 04/03/21 History methylPREDNISolone Dose Pack See Taper PO DIRECTED 04/03/21 04/03/21 History [Medrol Dose Pack] Allergies Allergy/AdvReac Type Severity Reaction Status Date / Time codeine Allergy Nausea & Verified 04/03/21 15:18 Vomiting Physical Exam Vitals: Vital Signs Temp Pulse Pulse Pulse Pulse Resp BP 04/03/21 19:55 74 H 105/56 04/03/21 18:30 69 72 68 04/03/21 17:00 66 18 109/60 04/03/21 15:32 97.3 F L 04/03/21 15:30 67 18 104/58 04/03/21 15:11 04/03/21 15:07 71 18 104/58 BP BP BP Pulse Ox 04/03/21 19:55 100 04/03/21 18:30 119/71 132/91 128/62 04/03/21 17:00 100 04/03/21 15:32 04/03/21 15:30 98 04/03/21 15:11 100 04/03/21 15:07 100 Intake and Output 04/03/21 04/03/21 04/03/21 06:59 14:59 22:59 Other: Weight 94.801 kg Results CBC & Chem 7: 04/03/21 15:32 04/03/21 15:32 Labs: Abnormal Lab Results - Last 24 Hours (Table) 04/03/21 04/03/21 Range/Units 15:32 17:29 Chloride 109 H (98-107) mmol/L Carbon Dioxide 19 L (22-30) mmol/L Glucose 107 H (74-99) mg/dL Urine Appearance Cloudy H (Clear) Urine Ketones 2+ H (Negative) Urine Blood Moderate H (Negative) Ur Squamous Epith Cells 9 H (0-4) /hpf Urine Bacteria Rare H (None) /hpf Urine Mucus Rare H (None) /hpf
[2021-04-04] MEDS: SODIUM CHLORIDE 0.9% 1,000 ML IV SCH (02:46)
[2021-04-04] MEDS ORDERED: LEVOTHYROXINE 50 MCG TAB PO SCH (06:30)
[2021-04-04 08:08] VITALS: RESP 16
[2021-04-04] MEDS: SYMBICORT 80-4.5 MCG INHALER INHALATION SCH ×4 (08:22→12:08)
[2021-04-04] MEDS: IPRATROPIUM 0.5 MG/2.5 ML NEBU INHALATION SCH ×3 (08:24→16:08)
[2021-04-04] MEDS ORDERED: METOPROLOL SUCCINATE (ER) 100 MG TAB.ER.24H PO SCH (09:00)
[2021-04-04] MEDS ORDERED: APIXABAN 5 MG TAB PO SCH (09:00)
[2021-04-04] MEDS ORDERED: SERTRALINE 50 MG TAB PO SCH (09:00)
[2021-04-04] MEDS ORDERED: MULTIVITAMINS, THERA 1 EACH TAB PO SCH (09:00)
[2021-04-04] MEDS ORDERED: SACUBITRIL/VALSARTAN 97 MG-103 MG TABLET PO SCH (09:00)
[2021-04-04] MEDS ORDERED: ASPIRIN 81 MG PO SCH (09:00)
--- NOTE | 2021-04-04 10:03 | P.CRDCN ---
History of Present Illness Consult date: 04/04/21 History of present illness: HISTORY OF PRESENT ILLNESS: This is a 65-year-old female with a past medical history significant for POTS, nonischemic cardiomyopathy with AICD implantation, paroxysmal atrial fibrillation on Eliquis, hypertension, hyperlipidemia, and congestive heart failure. Patient follows with a Dr. Daniel in [place]. We have been asked to see the patient in consultation for chest pain. Patient examined at the bedside. Patient states she usually has episodes of her POTS 1-2 times a week. She states she can usually feel them coming on and she can get them to pass on their own by just relaxing. However, she reports recently they are becoming more frequent and lastly longer over the past two months. She said yesterday, she was sitting curling her hair when she began to have tingling in both of her arms. She also reports tingling in her chest. She denied having any chest pain or pressure. She reports feeling diaphoretic. She states this episode lasted approximately 90 minutes and she was still feeling unwell when she came to the hospital. At the time of examination, the patient states she is feeling back to her baseline. She denies any dizziness or lightheadedness. She denies any tingling in her extremities. She reports that her chest feels sore this morning and does reports mild discomfort when she takes a deep breath. Patient underwent a cardiac catheterization in 2017 revealing normal coronary arteries with an ejection fraction of 35-40%. Patient does report her ejection fraction has been as low as 20%. She states she was started on Entresto and her last known EF was around 40%. She reports she had a stress test performed about a year ago through her primary personalized living manager. EKG reveals mechanism. Left anterior fascicular block. Prolonged QT. Chest xray negative for acute process Laboratory data: WBC 6.4. Hemoglobin 13.5. Platelet count 214. Sodium 140. Potassium 3.9. BUN 15. Creatinine 0.16. Lactic acid 2.0. Magnesium 1.9. Troponin negative 3. BNP 118. Current home cardiac medications include metoprolol succinate 100 mg daily, Eliquis 5 mg twice a day, Entresto 97-103mg BID REVIEW OF SYSTEMS: At the time of my exam: CONSTITUTIONAL: Denies fever or chills. HEENT: Denies blurred vision, vision changes, or eye pain. Denies hemoptysis CARDIOVASCULAR: Denies chest pain. Denies orthopnea. Denies PND. Denies palpitations RESPIRATORY: Denies shortness of breath. GASTROINTESTINAL: Denies abdominal pain. Denies nausea or vomiting. HEMATOLOGIC: Denies bleeding disorders. GENITOURINARY: Denies any blood in urine. SKIN: Denies pruitis. Denies rash. PHYSICAL EXAM: VITAL SIGNS: Reviewed. GENERAL: Well-developed in no acute distress. HEENT: Head is normocephalic. Pupils are equal, round. Sclerae anicteric. Mucous membranes of the mouth are moist. Neck supple. No JVD or thyromegaly LUNGS: Respirations even and unlabored. Lungs essentially clear to auscultation bilaterally. HEART: Regular rate and rhythm. S1 and S2 heard. ABDOMEN: Soft. Nondistended. Nontender. EXTREMITIES: Normal range of motion. No clubbing or cyanosis. Peripheral pulses intact. No lower extremity edema NEUROLOGIC: Awake and alert. Oriented x 3. ASSESSMENT: Bilateral arm tingling POTS Nonischemic cardiomyopathy with AICD implantation Proximal atrial fibrillation on Eliquis Hypertension Hyperlipidemia Chronic systolic congestive heart failure, currently euvolemic PLAN: Obtain 2-D echo to assess cardiac structure and function Obtain records from patient's primary personalized living manager Interrogate AICD Continue telemetry monitoring Further recommendations pending patient course Patient may be discharged home this afternoon from a cardiac standpoint. She was encouraged to follow up with her primary personalized living manager within the next week. Nurse practitioner note has been reviewed by physician. Signing provider agrees with the documented findings, assessment, and plan of care. Past Medical History Past Medical History: Asthma, Cancer, Fibromyalgia, Hyperlipidemia, Hypertension, Osteoarthritis (OA), Thyroid Disorder Additional Past Medical History / Comment(s): POTS,MTHFR mutation, hx melanoma, Defibillator, exercise-induced asthma. History of Any Multi-Drug Resistant Organisms: None Reported Past Surgical History: AICD, Back Surgery, Heart Catheterization, Hysterectomy, Joint Replacement, Orthopedic Surgery Additional Past Surgical History / Comment(s): bilateral knee replacement, and bilateral shoulders, joint rt thumb replaced and revised. Heart cath 15 years ago with no stents. Right knee revision in 2016. Back surgery 5 years ago. Previous pain injections. Past Anesthesia/Blood Transfusion Reactions: Previous Problems w/ Anesthesia, Postoperative Nausea & Vomiting (PONV) Additional Past Anesthesia/Blood Transfusion Reaction / Comment(s): POTS episode during anesthesia (severe drop in BP after previous knee replacement surgery) Type of Cardiac Device: AICD Device Placement Date:: 02/2016 Past Psychological History: Depression Past Alcohol Use History: Occasional Past Drug Use History: None Reported - Past Family History Sister(s) Family Medical History: Cancer Brother(s) Family Medical History: Cancer, Hypertension Medications and Allergies Home Medications Medication Instructions Recorded Confirmed Type ALPRAZolam [Xanax] 0.25 mg PO BID PRN 01/07/16 04/03/21 History Cyclobenzaprine [Flexeril] 5 mg PO TID PRN 01/07/16 04/03/21 History Nabumetone [Relafen] 1,500 mg PO DAILY 01/07/16 04/03/21 History Liothyronine Sodium [Cytomel] 10 mcg PO DAILY 05/07/16 04/03/21 History Multivitamins, Thera [Multivitamin 1 tab PO DAILY 05/07/16 04/03/21 History (formulary)] Rizatriptan Odt [Maxalt ACADEMIC AFFAIRS MANAGER] 10 mg PO DAILY PRN 05/19/16 04/03/21 History HYDROcodone/APAP 10-325MG [[place] 1 tab PO Q6H PRN 09/09/16 04/03/21 History 10-325] Levothyroxine Sodium [Synthroid] 50 mcg PO MOTUTHSA 10/27/18 04/03/21 History Sacubitril/Valsartan [Entresto 97 1 tab PO BID 10/27/18 04/03/21 History mg-103 mg Tablet] Sertraline [Zoloft] 150 mg PO DAILY 10/27/18 04/03/21 History Apixaban [Eliquis] 5 mg PO BID 04/03/21 04/03/21 History Cannabis Chewable 30 mg PO BID PRN 04/03/21 04/03/21 History Fluticasone/Umeclidin/Vilanter 1 puff INHALATION RT-DAILY 04/03/21 04/03/21 History [Trelegy Ellipta 200-62.5-25] Levothyroxine Sodium [Synthroid] 75 mcg PO SUWEFR 04/03/21 04/03/21 History Metoprolol Succinate [Toprol XL] 100 mg PO DAILY 04/03/21 04/03/21 History Omeprazole 20 mg PO DAILY 04/03/21 04/03/21 History methylPREDNISolone Dose Pack See Taper PO DIRECTED 04/03/21 04/03/21 History [Medrol Dose Pack] Allergies Allergy/AdvReac Type Severity Reaction Status Date / Time codeine Allergy Nausea & Verified 04/03/21 15:18 Vomiting Physical Exam Vitals: Vital Signs Temp Pulse Pulse Pulse Pulse Pulse Resp 04/04/21 07:00 97.7 F 78 16 04/04/21 01:47 75 04/04/21 01:00 97.6 F 75 17 04/03/21 23:17 69 16 04/03/21 22:55 97.8 F 67 16 04/03/21 22:27 77 18 04/03/21 19:55 74 18 04/03/21 18:30 69 72 68 04/03/21 17:00 66 18 04/03/21 15:32 97.3 F L 04/03/21 15:30 67 18 04/03/21 15:11 04/03/21 15:07 71 18 BP BP BP BP BP Pulse Ox 04/04/21 07:00 113/56 98 04/04/21 01:47 04/04/21 01:00 109/70 99 04/03/21 23:17 04/03/21 22:55 135/76 100 04/03/21 22:27 106/66 98 04/03/21 19:55 105/56 100 04/03/21 18:30 119/71 132/91 128/62 04/03/21 17:00 109/60 100 04/03/21 15:32 04/03/21 15:30 104/58 98 04/03/21 15:11 100 04/03/21 15:07 104/58 100 Intake and Output 04/03/21 04/04/21 04/04/21 22:59 06:59 14:59 Other: Voiding Method Toilet # Voids 2 Weight 94.801 kg Results 04/03/21 15:32 04/03/21 15:32 Cardiac Enzymes 04/03/21 04/03/21 04/03/21 Range/Units 15:32 15:32 21:01 AST 34 (14-36) U/L Troponin I <0.012 <0.012 (0.000-0.034) ng/mL 04/04/21 Range/Units 01:06 AST (14-36) U/L Troponin I <0.012 (0.000-0.034) ng/mL Coagulation 04/03/21 Range/Units 15:32 PT 10.8 (9.0-12.0) sec APTT 25.9 (22.0-30.0) sec CBC 04/03/21 Range/Units 15:32 WBC 6.4 (3.8-10.6) k/uL RBC 4.40 (3.80-5.40) m/uL Hgb 13.5 (11.4-16.0) gm/dL Hct 40.5 (34.0-46.0) % Plt Count 314 (150-450) k/uL Comprehensive Metabolic Panel 04/03/21 Range/Units 15:32 Sodium 140 (137-145) mmol/L Potassium 3.9 (3.5-5.1) mmol/L Chloride 109 H (98-107) mmol/L Carbon Dioxide 19 L (22-30) mmol/L BUN 15 (7-17) mg/dL Creatinine 0.61 (0.52-1.04) mg/dL Glucose 107 H (74-99) mg/dL Calcium 9.1 (8.4-10.2) mg/dL AST 34 (14-36) U/L ALT 18 (4-34) U/L Alkaline Phosphatase 67 (38-126) U/L Total Protein 6.5 (6.3-8.2) g/dL Albumin 4.2 (3.5-5.0) g/dL Current Medications Generic Name Dose Route Start Last Admin Trade Name Freq PRN Reason Stop Dose Admin Alprazolam 0.25 mg 04/04/21 00:16 Alprazolam 0.25 Mg Tab PO BID PRN Anxiety Apixaban 5 mg 04/04/21 09:00 Apixaban 5 Mg Tab PO BID [facility] Protocol Aspirin 81 mg 04/04/21 09:00 Aspirin 81 Mg PO DAILY [facility] Budesonide/Formoterol Fumarate 2 puff 04/04/21 08:00 04/04/21 08:24 Symbicort 80-4.5 Mcg Inhaler INHALATION Not Given RT-BID [facility] Sodium Chloride 1,000 mls @ 130 mls/hr 04/03/21 18:45 04/04/21 02:46 Saline 0.9% IV 130 mls/hr .Q7H42M KASEY Administration Ipratropium [place] 0.5 mg 04/04/21 08:00 Ipratropium 0.5 Mg/2.5 Ml Nebu INHALATION RT-QID [facility] Levothyroxine Sodium 50 mcg 04/04/21 06:30 04/04/21 05:37 Levothyroxine 50 Mcg Tab PO 50 mcg [id number] [facility] Administration Levothyroxine Sodium 75 mcg 04/05/21 06:30 Levothyroxine 50 Mcg Tab PO [id number] [facility] Metoprolol Succinate 100 mg 04/04/21 09:00 Metoprolol Succinate (Er) 100 Mg Tab.Er.24h PO DAILY [facility] Multivitamins 1 each 04/04/21 09:00 Multivitamins, Thera 1 Each Tab PO DAILY [facility] Naloxone HCl 0.2 mg 04/03/21 18:38 Naloxone 0.4 Mg/Ml 1 Ml Vial IV Q2M PRN Opioid Reversal Ondansetron HCl 4 mg 04/03/21 18:38 Ondansetron 4 Mg/2 Ml Vial IVP Q8HR PRN Nausea And Vomiting Sacubitril/Valsartan 1 each 04/04/21 09:00 Sacubitril/Valsartan 97 Mg-103 Mg Tablet PO BID [facility] Sertraline HCl 150 mg 04/04/21 09:00 Sertraline 50 Mg Tab PO DAILY [facility] Intake and Output 04/03/21 04/04/21 04/04/21 22:59 06:59 14:59 Other: Voiding Method Toilet # Voids 2 Weight 94.801 kg 04/03/21 15:32 04/03/21 15:32
--- NOTE | 2021-04-04 11:01 | ECHOF ---
Referral Reason:hx of POTS, weakness MEASUREMENTS -------- HEIGHT: 162.6 cm WEIGHT: 94.8 kg BP: 109/70 RVIDd: 3.3 cm (< 3.3) IVSd: 1.2 cm (0.6 - 1.1) LVIDd: 5.0 cm (3.9 - 5.3) LVPWd: 1.2 cm (0.6 - 1.1) IVSs: 1.4 cm LVIDs: 3.7 cm LVPWs: 1.5 cm LAESV Index (A-L): 36.71 ml/m Ao Diam: 3.6 cm (2.0 - 3.7) AV Cusp: 1.6 cm (1.5 - 2.6) LA Diam: 3.1 cm (2.7 - 3.8) MV EXCURSION: 17.009 mm (> 18.000) MV EF SLOPE: 59 mm/s (70 - 150) EPSS: 0.9 cm MV E Juan Daniel: 1.12 m/s MV DecT: 208 ms MV A Juan Daniel: 1.31 m/s MV E/A Ratio: 0.86 RAP: 5.00 mmHg RVSP: 41.69 mmHg FINDINGS -------- Sinus rhythm. This was a technically adequate study. The left ventricular size is normal. There is mild concentric left ventricular hypertrophy. Overa ll left ventricular systolic function is normal with, an EF between 55 - 60 %. The diastolic fillin g pattern is normal for the age of the patient 12.81. The right ventricle is mildly enlarged. LA is moderately dilated 34-39 ml/m2 The right atrial size is normal. Electronic pacemaker lead seen in the right atrial cavity. Interatrial and interventricular septum intact. The aortic valve is trileaflet and appears structurally normal. There is no evidence of aortic regu rgitation. There is no evidence of aortic stenosis. Moderate mitral regurgitation is present. [id number] tricuspid regurgitation present. There is mild to moderate pulmonary hypertension. The right ventricular systolic pressure, as measured by Doppler, is 41.69mmHg. There is no pulmonic regurgitation present. The aortic root size is normal. IVC Not well visulized. There is no pericardial effusion. CONCLUSIONS -------- 1. The left ventricular size is normal. 2. There is mild concentric left ventricular hypertrophy. 3. Overall left ventricular systolic function is normal with, an EF between 55 - 60 %. 4. The diastolic filling pattern is normal for the age of the patient 12.81 5. The right ventricle is mildly enlarged. 6. LA is moderately dilated 34-39 ml/m2 7. Moderate mitral regurgitation is present. 8. Kyxc-uw-[id number] tricuspid regurgitation present. 9. There is mild to moderate pulmonary hypertension. 10. The right ventricular systolic pressure, as measured by Doppler, is 41.69mmHg. MOLDING MACHINE SETTER: Yasmine Jonas RDCS
[2021-04-04 15:06] VITALS: BP 121/76; PULSE 69; TEMP 97.8
--- NOTE | 2021-04-04 16:00 | P.DS ---
Providers Date of admission: 04/03/21 18:40 Expected date of discharge: 04/04/21 Attending physician: Yu Yanes DO Primary care physician: Terrie Shea MD Hospital Course: Discharge Diagnosis: Atypical chest pain Prolonged QTC POTS Hypertension Dyslipidemia Hypothyroidism A. fib Hospital Course: Patient is a 65-year-old female history of Pott's, cardiomyopathy, paroxysmal A. fib, hypothyroidism, and dyslipidemia who presented to the emergency department with complaints of chest discomfort, shortness breath, lightheadedness, and weakness. She was initially admitted for chest pain observation. She was found to have a QTC of 517 on admission, troponin was normal, EKG revealed anterior fascicular block but no significant ST segment changes. She was admitted and seen by cardiology. Her troponins remained negative. Echocardiogram showed preserved ejection fraction 55-65 and mild to moderate MR and TR. AICD was interrogated without any signs of dysfunction. She was determined stable for discharge. Follow-up: Primary care provider in 1-2 days, primary dials supervisor in 1 week, could consider referral to [facility] for worsening POTS symptoms. Patient seen and examined at bedside. No chest discomfort, shortness of breath, or tingling feeling. She states her popsicles been progressing over the last several months. We discussed possible follow-up with [facility] following with her primary dials supervisor first. Vital signs reviewed and stable. General: non toxic, no distress, appears at stated age Derm: warm, dry Head: atraumatic, normocephalic, symmetric Eyes: EOMI, no lid lag, anicteric sclera Mouth: no lip lesion, mucus membranes moist Cardiovascular: S1S2 reg, no murmur, positive posterior tibial pulse bilateral, Lungs: CTA bilateral, no rhonchi, no rales , no accessory muscle use Abdominal: soft, nontender to palpation, no guarding, no appreciable organomegaly Ext: no gross muscle atrophy, no edema, no contractures Neuro: CN II-XI grossly intact, no focal neuro deficits Psych: Alert, oriented, appropriate affect A total of 25 minutes of time were spent preparing this complex discharge summary . Patient Condition at Discharge: Stable Plan - Discharge Summary Discharge Rx Participant: No New Discharge Prescriptions: New Aspirin 81 mg PO DAILY chew Continue Cyclobenzaprine [Flexeril] 5 mg PO TID PRN PRN Reason: Muscle Pain ALPRAZolam [Xanax] 0.25 mg PO BID PRN PRN Reason: Anxiety Nabumetone [Relafen] 1,500 mg PO DAILY Liothyronine Sodium [Cytomel] 10 mcg PO DAILY Multivitamins, Thera [Multivitamin (formulary)] 1 tab PO DAILY Rizatriptan Odt [Maxalt FORMS BUILDER] 10 mg PO DAILY PRN PRN Reason: Migraine Headache HYDROcodone/APAP 10-325MG [[place] 10-325] 1 tab PO Q6H PRN PRN Reason: Pain Levothyroxine Sodium [Synthroid] 50 mcg PO MOTUTHSA Sertraline [Zoloft] 150 mg PO DAILY Sacubitril/Valsartan [Entresto 97 mg-103 mg Tablet] 1 tab PO BID Metoprolol Succinate [Toprol XL] 100 mg PO DAILY Levothyroxine Sodium [Synthroid] 75 mcg PO SUWEFR Cannabis Chewable 30 mg PO BID PRN PRN Reason: Pain Omeprazole 20 mg PO DAILY Fluticasone/Umeclidin/Vilanter [Trelegy Ellipta 200-62.5-25] 1 puff INHALATION RT-DAILY Apixaban [Eliquis] 5 mg PO BID Discontinued methylPREDNISolone Dose Pack [Medrol Dose Pack] See Taper PO DIRECTED Discharge Medication List ALPRAZolam [Xanax] 0.25 mg PO BID PRN 01/07/16 [History] Cyclobenzaprine [Flexeril] 5 mg PO TID PRN 01/07/16 [History] Nabumetone [Relafen] 1,500 mg PO DAILY 01/07/16 [History] Liothyronine Sodium [Cytomel] 10 mcg PO DAILY 05/07/16 [History] Multivitamins, Thera [Multivitamin (formulary)] 1 tab PO DAILY 05/07/16 [History] Rizatriptan Odt [Maxalt FORMS BUILDER] 10 mg PO DAILY PRN 05/19/16 [History] HYDROcodone/APAP 10-325MG [[place] 10-325] 1 tab PO Q6H PRN 09/09/16 [History] Levothyroxine Sodium [Synthroid] 50 mcg PO MOTUTHSA 10/27/18 [History] Sacubitril/Valsartan [Entresto 97 mg-103 mg Tablet] 1 tab PO BID 10/27/18 [History] Sertraline [Zoloft] 150 mg PO DAILY 10/27/18 [History] Apixaban [Eliquis] 5 mg PO BID 04/03/21 [History] Cannabis Chewable 30 mg PO BID PRN 04/03/21 [History] Fluticasone/Umeclidin/Vilanter [Trelegy Ellipta 200-62.5-25] 1 puff INHALATION RT-DAILY 04/03/21 [History] Levothyroxine Sodium [Synthroid] 75 mcg PO SUWEFR 04/03/21 [History] Metoprolol Succinate [Toprol XL] 100 mg PO DAILY 04/03/21 [History] Omeprazole 20 mg PO DAILY 04/03/21 [History] Aspirin 81 mg PO DAILY chew 04/04/21 [Rx] Follow up Appointment(s)/Referral(s): Terrie Shea MD [Primary Care Provider] - 1-2 days Activity/Diet/Wound Care/Special Instructions: Activity: as tolerated Diet: heart healthy Special Instructions: Follow-up with your dials supervisor [email or web address] Discharge Disposition: HOME SELF-CARE
[2021-04-04 20:04] LABS: African American GFR (CKD) 104.6 (60.0-200.0); Anion Gap 9.1 mmol/L (4.00-12.00); Carbon Dioxide 20.9 mmol/L (21.6-31.8); Non-African American GFR(CKD) 90.3 (60.0-200.0)
[2021-04-05] MEDS ORDERED: LEVOTHYROXINE 50 MCG TAB PO SCH (06:30)
== END 2021-04-04 17:20 | disposition home or self-care (01) ==
LOC: EC 15:05 → 6NMEDSUR 18:40
PROVIDERS: ADMIT Internal Medicine; ATTEND Internal Medicine
DX: I49.8 Other specified cardiac arrhythmias (principal); R07.89 Other chest pain; E03.9 Hypothyroidism, unspecified; E78.5 Hyperlipidemia, unspecified; E86.0 Dehydration; F32.9 Major depressive disorder, single episode, unspecified; I11.0 Hypertensive heart disease with heart failure; I42.8 Other cardiomyopathies; I44.4 Left anterior fascicular block; I48.0 Paroxysmal atrial fibrillation; R20.2 Paresthesia of skin; I50.22 Chronic systolic (congestive) heart failure; J45.909 Unspecified asthma, uncomplicated; M79.7 Fibromyalgia; Z79.01 Long term (current) use of anticoagulants; Z79.890 Hormone replacement therapy; Z79.899 Other long term (current) drug therapy; Z82.49 Family history of ischemic heart disease and other diseases of the circulatory system; Z85.820 Personal history of malignant melanoma of skin; Z90.710 Acquired absence of both cervix and uterus; Z95.810 Presence of automatic (implantable) cardiac defibrillator; Z96.653 Presence of artificial knee joint, bilateral
CPT/HCPCS: 99285; 93005 ×2; 96360; 96361; 36415; 94640 ×2; 93306; 83880; 80053; 80048; 83605; 83735; 84484 ×2; 85025; 85610; 85730; 81001; 71046; G0378 ×2

== ENCOUNTER → 2021-04-25 | Outpatient (CLI) | payer MEDICARE ==
[2021-04-25 12:31] LABS: African American GFR (CKD) >90 (>60 ml/min/1.73 sqM); Blood Urea Nitrogen 14 mg/dL (7-17); Non-African American GFR(CKD) 83 (>60 ml/min/1.73 sqM)
--- NOTE | 2021-04-25 13:03 | CT ---
EXAMINATION TYPE: CT chest w con DATE OF EXAM: 04/25/2021 COMPARISON: 06/21/2012 HISTORY: Dyspnea. CT DLP: 550 mGycm Automated exposure control for dose reduction was used. CONTRAST: CT scan of the chest is performed with IV Contrast, patient injected with 100ml mL of Isovue 300. FINDINGS: LUNGS: The lungs are grossly clear, there is no concerning parenchymal mass or nodule identified. T here is no pleural effusion or pneumothorax seen. The tracheobronchial tree is patent. MEDIASTINUM: There are no greater than 1 cm hilar or mediastinal lymph nodes. No pericardial effusi on is seen. Thoracic aorta is of normal caliber. The heart is not enlarged. UPPER ABDOMEN: Large fixed hiatal hernia identified. OTHER: No additional significant abnormality is seen. IMPRESSION: 1. No evidence for infiltrate nodule or volume loss. No pleural effusion seen. Large fixed hiatal her [place]
== END | disposition home or self-care (01) ==
LOC: RADCTMAIN 11:57
PROVIDERS: ATTEND Internal Medicine
DX: R06.00 Dyspnea, unspecified (principal)
CPT/HCPCS: 82565; 84520; 71260; 36415; Q9967

== ENCOUNTER → 2021-09-03 | Outpatient (CLI) | payer MEDICARE ==
[2021-09-03 19:58] LABS: Prolactin 12.6 ng/mL (2.800-29.200)
== END | disposition home or self-care (01) ==
LOC: LABWHC1 08:55
PROVIDERS: ATTEND Internal Medicine Endocrinology, Diabetes & Metabolism
DX: E03.8 Other specified hypothyroidism (principal); R53.83 Other fatigue
CPT/HCPCS: 36415; 82024; 82533; 82607; 84146; 84443

== ENCOUNTER → 2022-12-04 | Outpatient (CLI) | payer MEDICARE ==
--- NOTE | 2022-12-04 14:51 | US ---
EXAMINATION TYPE: US kidneys/renal and bladder DATE OF EXAM: 12/04/2022 COMPARISON: NONE CLINICAL HISTORY: N32.89 DISORDER OF BLADDER. Frequent urination and uti' s EXAM MEASUREMENTS: Right Kidney: 11.3 x 4.6 x 4.7 cm Left Kidney: 10.4 x 4.3 x 4.2 cm Right Kidney: wnl Left Kidney: wnl Bladder: just left of posterior mid medial to the left UVJ there are two 7mm echogenic structures wit h strong color artifact; they do not appear to be mobile. ?Fixed stones v wall calcification v other ? Bilateral Jets seen: yes There is no evidence for hydronephrosis at this point in time. No nephrolithiasis is seen. No bouchra s are identified. Hyperechoic foci with posterior acoustic shadowing seen layering dependently in the bladder lumen. Bilateral ureteral jets are seen. IMPRESSION: 1. No evidence of obstructive uropathy. 2. Suspected bladder calculi versus calcified wall, consider further evaluation CT pelvis as clinica lly warranted.
== END | disposition home or self-care (01) ==
LOC: RADUSWWP 13:46
PROVIDERS: ATTEND Family Medicine
DX: N32.89 Other specified disorders of bladder (principal)
CPT/HCPCS: 76770

== ENCOUNTER → 2022-12-23 | Outpatient (CLI) | payer MEDICARE ==
--- NOTE | 2022-12-24 08:51 | CT ---
EXAMINATION TYPE: CT abdomen pelvis wo con CT DLP: 791.2 mGycm, Automated exposure control for dose reduction was used. DATE OF EXAM: 12/23/2022 6:22 PM COMPARISON: CT abdomen pelvis most recent from CT 10/28/2019 CT urogram 07/21/2011 CLINICAL INDICATION:Female, 67 years old with history of N28.9 DISORDER OF KIDNEY AND URETER, UNSPECI FIED; flank pain TECHNIQUE: Axial CT of the abdomen and pelvis. Sagittal and coronal reformats were created on a [employer] workstation. Contrast used: None Oral contrast used: without Oral Contrast FINDINGS: LOWER CHEST: Cardiac conduction leads partially visualized terminating in the right ventricle and rig ht atrium. Trace pericardial effusion. Small hiatal hernia. ABDOMEN LIVER: Unremarkable GALLBLADDER AND BILE DUCTS: Unremarkable. PANCREAS: Unremarkable. SPLEEN: Unremarkable. ADRENAL GLANDS: Unremarkable. KIDNEYS AND URETERS: No evidence of hydronephrosis or renal calculus. The ureters are unremarkable. Hyperdense left renal lesion measuring 8 mm. Unchanged from at least 2020 and likely represent protei naceous/hemorrhagic cyst. This is mildly enlarged compared to 21. Measured 5 mm. PELVIS BLADDER: No evidence of bladder stone. Urinary bladder is incompletely distended. REPRODUCTIVE: The uterus is surgically absent. ABDOMEN & PELVIS STOMACH AND BOWEL: No evidence of bowel obstruction. Second portion duodenal diverticulum. Small hiat al hernia with postsurgical change the gastroesophageal junction.. Moderate stool burden throughout t he colon. The cecum is located in the right upper quadrant PERITONEUM/RETROPERITONEUM: No evidence of pneumoperitoneum or free fluid. VASCULATURE: No evidence of aortic aneurysm. Moderate atherosclerosis throughout the arterial vascula ture. MUSCULOSKELETAL: No acute osseous abnormalities, Multilevel disc degeneration changes with grade 2 an terolisthesis of L4 and L5 with increased lordosis at this level. There is at least [id number] spinal canal stenosis at this level. Scoliosis changes apex L3. LYMPH NODES: No gross evidence for lymphadenopathy. SOFT TISSUE/ABDOMINAL WALL: Left fat-containing inguinal hernia. IMPRESSION: 1. No evidence of obstructive uropathy, no renal calculi. No bladder stone. Incomplete distention of the urinary bladder without gross abnormality. 2. Moderate stool burden throughout the colon. 3. Second portion duodenal diverticulum. 4. Small hiatal hernia with postsurgical change the gastroesophageal junction. 5. Trace pericardial effusion. 6. Stable left renal hyperdense cysts compared to 2020 and mild enlargement from 2010. Likely repres enting proteinaceous/hemorrhagic cyst.
== END | disposition home or self-care (01) ==
LOC: RADCTMAIN 18:05
PROVIDERS: ATTEND Family Medicine
DX: K44.9 Diaphragmatic hernia without obstruction or gangrene (principal); K57.10 Diverticulosis of small intestine without perforation or abscess without bleeding; I31.39 Other pericardial effusion (noninflammatory); N28.1 Cyst of kidney, acquired; N28.9 Disorder of kidney and ureter, unspecified; N32.89 Other specified disorders of bladder
CPT/HCPCS: 74176

== ENCOUNTER → 2022-12-29 | Outpatient (CLI) | payer MEDICARE ==
--- NOTE | 2022-12-29 14:42 | XR ---
EXAMINATION TYPE: XR chest 2V DATE OF EXAM: 12/29/2022 1:59 PM COMPARISON: Chest radiographs from 03/26/2021 TECHNIQUE: XR chest 2V Frontal and lateral views of the chest. CLINICAL INDICATION:Female, 67 years old with history of I50.22 CHRONIC SYSTOLIC (CONGESTIVE) HEART F AILURE; FINDINGS: Lungs/Pleura: There is no evidence of pleural effusion, focal consolidation, or pneumothorax. Pulmonary vascularity: Unremarkable. Heart/mediastinum: Cardiomediastinal silhouette is unremarkable. Single-lead cardiac conduction devic e overlying the left hemithorax with lead projecting over the right ventricle. Musculoskeletal: Degenerative changes of the shoulder joints. IMPRESSION: No acute cardiopulmonary disease/process. No evidence for acute heart failure.
== END | disposition home or self-care (01) ==
LOC: RADXRMAIN 13:41
PROVIDERS: ATTEND Family Medicine
DX: I50.22 Chronic systolic (congestive) heart failure (principal)
CPT/HCPCS: 71046

== ENCOUNTER → 2022-12-29 | Outpatient (CLI) | payer MEDICARE ==
[2022-12-29 15:42] LABS: Partial Thromboplastin Time 25.7 sec (22.0-30.0); Prothrombin Time 10.3 sec (9.0-12.0)
[2022-12-29 20:15] LABS: Appearance,Urine Clear (Clear); Bilirubin,Urine Negative (Negative); Blood,Urine Negative (Negative); Color,Urine Yellow (Yellow); Ketones,Urine Negative (Negative); Nitrite,Urine Negative (Negative); PH, Urine 5.5 (5.0-8.0); Specific Gravity,Urine 1.025 (1.001-1.030); Urobilinogen,Urine 0.2 (0.2,1.0)
[2022-12-29 23:55] LABS: Microalbumin Creatinine Ratio <30 mg/g Creat (0-30); Urine Creatinine 63.2 mg/dL (28.0-217.0)
[2022-12-30 02:10] LABS: Basophils # (A) 0.06 X 10*3/uL (0.00-0.10); Basophils % (A) 0.9 %; Eosinophils # (A) 0.16 X 10*3/uL (0.04-0.35); Eosinophils % (A) 2.3 %; HCT 44.6 % (37.2-46.3); HGB 14.1 g/dL (12.0-15.0); Immature Grans, Automated 0.1 %; Lymphocytes # (A) 1.52 X 10*3/uL (0.90-5.00); Lymphocytes % (A) 22.1 %; MCH 30.1 pg (27.0-32.0); MCHC 31.6 g/dL (32.0-37.0); MCV 95.1 fL (80.0-97.0); Mean Platelet Volume 10.8 fL (9.5-12.2); Monocytes # (A) 0.64 X 10*3/uL (0.20-1.00); Monocytes % (A) 9.3 %; NRBC Per 100 WBC 0 /100 WBCS (0.0-0.0); Neutrophils % (A) 65.3 %; Platelet Count 293 X 10*3/uL (140-440); RBC 4.69 X 10*6/uL (4.10-5.20); RDW 13.2 % (11.5-14.5); WBC 6.89 X 10*3/uL (4.50-10.00)
[2022-12-30 02:12] LABS: African American GFR (CKD) 86.8 (60.0-200.0); Albumin 4.5 g/dL (3.8-4.9); Albumin/Globulin Ratio 2.32 (1.60-3.17); Anion Gap 10.1 mmol/L (10.00-18.00); BUN/Creat Ratio 24.01 Ratio (12.00-20.00); Blood Urea Nitrogen 19.4 mg/dL (9.0-27.0); Calcium 9.4 mg/dL (8.7-10.3); Carbon Dioxide 26.2 mmol/L (20.0-27.5); Globulin 1.9 g/dL (1.6-3.3); Non-African American GFR(CKD) 74.9 (60.0-200.0); Potassium 4.6 mmol/L (3.5-5.5); T4, Free (Free Thyroxine) 1.39 ng/dL (0.800-1.800); Total Bilirubin 0.2 mg/dL (0.30-1.20); Total Protein 6.4 g/dL (6.2-8.2)
== END | disposition home or self-care (01) ==
LOC: LABPAT 14:02
PROVIDERS: ATTEND Orthopaedic Surgery
DX: Z01.812 Encounter for preprocedural laboratory examination (principal); I48.0 Paroxysmal atrial fibrillation; G90.A Postural orthostatic tachycardia syndrome [POTS]; I50.22 Chronic systolic (congestive) heart failure; R73.9 Hyperglycemia, unspecified; M16.12 Unilateral primary osteoarthritis, left hip
CPT/HCPCS: 80053; 81003; 82043; 82570; 83036; 83880; 84439; 84443; 85025; 85610; 85730; 87070; 87086

== ENCOUNTER 2023-01-06 07:43 | Day surgery (SDC) | payer MEDICARE ==
[2023-01-01 09:35] VITALS: BMI 36.1
[~2023-01-06 07:43] MED LIST: ACETAMINOPHEN TAB 500 MG TAB PO PRN; HYDROmorphone 0.5 MG/0.5 ML SYRINGE IVP PRN; MELOXICAM 7.5 MG TAB PO PRN; ONDANSETRON 4 MG/2 ML VIAL IVP ONE; TRANEXAMIC ACID IN NACL,ISO-OS 1,000 MG in SALINE 1 100ML.BAG IVPB PRN; fentaNYL (PF) 50 MCG/ML 2 ML AMP IV PRN
[2023-01-06] MEDS ORDERED: ONDANSETRON 4 MG/2 ML VIAL ONE (08:31)
[2023-01-06] MEDS ORDERED: DEXAMETHASONE SOD PHOSPHATE 4 MG/ML 1 ML VIAL IVP ONE (08:40)
[2023-01-06] MEDS: LACTATED RINGERS 1,000 ML IV SCH ×3 (08:40→17:01)
[2023-01-06] MEDS ORDERED: ONDANSETRON 4 MG/2 ML VIAL IVP ONE (08:40)
[2023-01-06] MEDS ORDERED: MIDAZOLAM 2 MG/2 ML VIAL IVP ONE (08:48)
[2023-01-06] MEDS ORDERED: LIDOCAINE 2% INJ 20 MG/ML (2 ML VIAL) ONE (08:54)
[2023-01-06] MEDS ORDERED: MIDAZOLAM 2 MG/2 ML VIAL ONE (08:54)
[2023-01-06] MEDS ORDERED: PHENYLEPHRINE-0.9% NACL SYG 1,000 MCG/10 ML SYRINGE ONE (08:54)
[2023-01-06] MEDS ORDERED: fentaNYL (PF) 50 MCG/ML 2 ML AMP ONE (08:54)
[2023-01-06] MEDS ORDERED: PROPOFOL 10 MG/ML 20 ML VIAL IV ONE (08:54)
[2023-01-06] MEDS ORDERED: TRANEXAMIC ACID IN NACL,ISO-OS 1,000 MG/100 ML BAG ONE (08:54)
[2023-01-06] MEDS ORDERED: ceFAZolin 1,000 MG in SODIUM CHLORIDE 0.9% 1,000 ML IRRIGATION ONE (09:15)
[2023-01-06] MEDS ORDERED: ROPIVACAINE 5 MG/ML 30 ML VIAL MISCELLANE ONE ×2 (09:22→09:58)
--- NOTE | 2023-01-06 10:00 | P.OP ---
Date of Procedure: 01/06/23 Preoperative Diagnosis: Severe osteoarthritis left hip Postoperative Diagnosis: Severe osteoarthritis left hip Procedure(s) Performed: Left total hip arthroplasty with direct anterior approach Implants: [employer] Polarstem standard size 5 with a collar [employer] R3, 3 hole hemispherical acetabular shell, 48 mm [employer] Reflection 6.5 mm cancellus screw, 20 mm, 25 mm [employer] R3, XLPE 20 acetabular liner [employer] Oxinium femoral head 32 m, +4 All components were press-fit. The articulation is Oxinium on polyethylene. Anesthesia: spinal Surgeon: Mickey Palmer Patient Safety Officer #1: Deirdre Winston Estimated Blood Loss (ml): 150 Pathology: other (Bone and cartilage) Condition: stable Disposition: PACU Indications for Procedure: After failure of conservative treatment we discussed the surgical and nonsurgical treatment options at length. Patient wishes to proceed with a total hip arthroplasty with a direct anterior approach. Complications specific to this procedure were discussed at length, including but not limited to infection, leg length discrepancy, dislocation, nerve injury, and fracture. Covid-19 was also discussed at length with the patient, and they are aware of the current policies and procedures. The patient was given the option of delaying surgery, but they elect to proceed knowing these risks. Patient is aware of all these complications and informed consent was obtained Operative Findings: The operative findings are consistent with severe osteoarthritis of the left hip Description of Procedure: The patient was seen and evaluated in the preoperative area and the consent was reviewed. The operative site was marked with a skin marker. The patient verified the procedure and operative site. A HAKAN block was placed by anesthesia in the preoperative area. The patient was then brought to the operating room and given preoperative antibiotics intravenously. 1 g of Tranexamic acid was also given intravenously. A spinal anesthetic was administered by the anesthesia department. The patient was then placed on the [place] table with the bony prominences well-padded. The hip area was then prepped with a ChloraPrep solution and draped in the usual sterile fashion. A universal timeout was then performed, which confirmed the patient's name, surgical site, ALLERGIES, and procedure being performed on the consent. Next the incision site was located at 1 cm distal and 4 cm lateral to the anterior superior iliac spine. The skin and subcutaneous tissues were sharply incised. Incision was carefully dissected down to the fascia overlying the tensor fascia shar muscle. This fascia was then incised in line with the muscle fibers. Care was taken to stay laterally in order to avoid injuring the lateral femoral cutaneous nerve. Next, using blunt finger dissection, the tensor fascia shar muscle was dissected off its investing fascia. The muscle was then carefully retracted laterally with a cobra retractor over the lateral neck of the femur. Next, the circumflex vessels were identified and cauterized using the Aquamantis device. The anterior hip capsule was then exposed. The capsule was then opened and an inverted T fashion. The retractors were then placed intracapsularly. The retractors were maintained intracapsular throughout the procedure. The proximal femur was then visualized. Fluoroscopic x-rays were then taken in order to evaluate the preoperative leg lengths. A small amount of traction was placed on the leg. The femoral neck was then osteotomized at the appropriate level above the lesser trochanter. A small wedge of bone was then removed from the remaining femoral head. Next, using a corkscrew the femoral head was removed from the acetabulum. On gross visual inspection, the femoral head had complete loss of articular cartilage and multiple periarticular osteophytes. The femoral head was then measured. Attention was then turned to the acetabulum. The acetabulum was exposed and any remaining labrum was excised. Sequential reaming of the acetabulum was performed using fluoroscopic guidance until there was a good bed of bleeding cancellus bone. When the appropriate size was reached, a trial was then placed. The position and fit of the trial was checked with fluoroscopy. The trial was then removed. Then, using fluoroscopic guidance, the final implant was impacted at 20 of anteversion and 40 of abduction, and fully seated in the acetabulum. 2 screws were then placed in the acetabulum. Again fluoroscopy was used to check position of the screws. Next, the liner was then impacted, with a 20 elevated liner located in the anterior superior quadrant. Component locking was confirmed. Attention was then directed to the femur. With the aid of the [place] table, the femur was externally rotated to approximately 130, extended, and adducted under the opposite leg. A side hook was then placed under the proximal femur, and the side hook elevator was used to elevate the proximal femur while releasing the capsule. Retractors were then placed. A capsular release was performed, as well as a release of the conjoined tendon, which afforded excellent visualization of the proximal femur. Next, a box osteotome was used to lateralize the proximal femur. A milk handler was then used to locate the femoral canal. Sequential broaching was then performed with appropriate size which afforded excellent fixation in the proximal femur. A trial was then placed with appropriate head and neck, and the hip was gently reduced with the aid of the [place] table. Fluoroscopy was then used to check position of the components, as well as to evaluate the leg lengths and offset. The leg lengths and offset were measured as closely as possible to ensure stability of the hip. The hip was then gently dislocated and the trials were then removed. Final implants were then impacted and the hip was again reduced. Final fluoroscopic x-rays confirmed that the components were in anatomic position. The leg lengths and offset were measured and were found to coincide with the trial measurements. The hip was also taken through range of motion, and found to be stable. The hip was then copiously irrigated with antibiotic solution with pulsatile lavage. The hip was then irrigated with Irrisept solution. The soft tissues were then injected with a ropivacaine solution. A second dose of 1 g of Tranexamic acid was also given intravenously. The fascia was then closed with 2-0 strata fix suture. The subcutaneous tissue was closed with 3-0 Vicryl. The subcuticular tissue was closed with 3-0 strata fix suture. The skin was then closed with Exofin skin glue. After the glue and dried, and Optifoam silver impregnated dressing was applied. The patient was then transferred to the recovery room in stable condition. The parts room assistant LEATHA Levy was required due to the complexity of surgery, and the need for skilled surgical aide for positioning, draping, exposure, retraction, and closure of the wound.
[2023-01-06] MEDS ORDERED: LACTATED RINGERS 1,000 ML IV ONE (10:12)
[2023-01-06] MEDS ORDERED: HYDROmorphone 0.5 MG/0.5 ML SYRINGE IVP PRN ×3 (10:38)
[2023-01-06] MEDS ORDERED: MAGNESIUM HYDROXIDE 2,400 MG/10 ML CUP PO PRN (10:38)
[2023-01-06] MEDS ORDERED: NALOXONE 0.4 MG/ML 1 ML VIAL IV PRN (10:38)
[2023-01-06] MEDS ORDERED: ONDANSETRON 4 MG/2 ML VIAL IVP PRN (10:38)
[2023-01-06] MEDS ORDERED: HYDROcodone/APAP 7.5-325MG 1 EACH TAB PO PRN (10:41)
[2023-01-06] MEDS ORDERED: SODIUM CHLORIDE 0.9% 1,000 ML IV SCH (10:45)
--- NOTE | 2023-01-06 10:51 | XR ---
EXAMINATION TYPE: XR Hip Limited LT, FL guidance operating room DATE OF EXAM: 01/06/2023 Comparison: None Clinical History: 67-year-old female OA left hip Findings: Intraoperative fluoroscopic images during left total hip arthroplasty. FLUOROSCOPY Fluoroscopy time of 43 seconds was used during left total hip arthroplasty. 3 image/s document/s the procedure. DAP 1.1120. IMPRESSION: Intraoperative fluoroscopy as above.
--- NOTE | 2023-01-06 10:59 | XR ---
EXAMINATION TYPE: XR Hip Limited LT DATE OF EXAM: 01/06/2023 Comparison: None Clinical History: 67-year-old female Status post hip surgery, assess surgical alignment Findings: Image shows placement of a left total hip arthroplasty. Both acetabular cup and femoral stem componen ts of the prosthesis are well seated without periprosthetic fracture. Alignment grossly anatomic. Sof t tissue air related to recent operation. Impression: Uncomplicated postoperative appearance left total hip arthroplasty.
--- NOTE | 2023-01-06 12:01 | P.ANPRN ---
Procedure Note - Anesthesia - Nerve Block Performed Left Cecil Single Time Out Performed: Yes Date of Procedure: 01/06/23 Procedure Start Time: 08:47 Procedure Stop Time: 08:51 Location of Patient: PreOp Indication: Acute Post-Operative Pain, Requested by Surgeon Sedation Type: Sedate with meaningful contact maintained Preparation: Sterile Prep Position: Supine Needle Types: Pajunk Ultrasound used to visualize needle placement: Yes Ultrasound used to observe medication spread: Yes Blood Aspirated: No Pain Paresthesia on Injection Noted: No Resistance on Injection: Normal Image Stored and Saved: Yes Events: Uneventful and Well Tolerated (Ropivacaine 0.5% 20 mL plus dexamethasone 4 mg)
[2023-01-06] MEDS ORDERED: HYDROmorphone 0.5 MG/0.5 ML SYRINGE IVP ONE (12:31)
[2023-01-06] MEDS: HYDROcodone/APAP 7.5-325MG 1 EACH TAB PO PRN ×2 (16:45→22:26)
[2023-01-06] MEDS ORDERED: CYCLOBENZAPRINE 5 MG TAB PO PRN (18:25)
[2023-01-06] MEDS ORDERED: SUMAtriptan succinate 50 MG TAB PO PRN (18:25)
[2023-01-06] MEDS ORDERED: LEVOTHYROXINE 75 MCG TAB PO SCH (18:30)
[2023-01-06] MEDS ORDERED: ESTRADIOL 0.1 MG/GM VAGINAL CREAM 42.5 GM TUBE VAGINAL SCH (18:30)
[2023-01-06] MEDS ORDERED: SENNOSIDES-DOCUSATE SODIUM 1 EACH TAB PO SCH (21:00)
[2023-01-06] MEDS ORDERED: DAPAGLIFLOZIN PROPANEDIOL 10 MG TABLET PO SCH (21:00)
[2023-01-06] MEDS ORDERED: traZODone HCL 50 MG TAB PO SCH (21:00)
[2023-01-06] MEDS ORDERED: CYCLOBENZAPRINE 10 MG TAB PO SCH (21:00)
[2023-01-06] MEDS: SACUBITRIL/VALSARTAN 49 MG-51 MG TABLET PO SCH (21:10)
[2023-01-07] MEDS ORDERED: LEVOTHYROXINE 75 MCG TAB PO SCH (06:30)
[2023-01-07] MEDS ORDERED: LIOTHYRONINE SODIUM 5 MCG TAB PO SCH (06:30)
[2023-01-07] MEDS: HYDROcodone/APAP 7.5-325MG 1 EACH TAB PO PRN ×2 (06:42→12:12)
[2023-01-07] MEDS ORDERED: PANTOPRAZOLE 40 MG TABLET PO SCH (07:30)
[2023-01-07 09:00] LABS: Basophils # (A) 0.01 X 10*3/uL (0.00-0.10); Basophils % (A) 0.1 %; Eosinophils # (A) 0.02 X 10*3/uL (0.04-0.35); Eosinophils % (A) 0.2 %; HCT 34.8 % (37.2-46.3); HGB 11.2 g/dL (12.0-15.0); Immature Grans, Automated 0.4 %; Lymphocytes # (A) 0.97 X 10*3/uL (0.90-5.00); Lymphocytes % (A) 10.1 %; MCH 29.8 pg (27.0-32.0); MCHC 32.2 g/dL (32.0-37.0); MCV 92.6 fL (80.0-97.0); Mean Platelet Volume 10.4 fL (9.5-12.2); Monocytes # (A) 1.38 X 10*3/uL (0.20-1.00); Monocytes % (A) 14.4 %; NRBC Per 100 WBC 0 /100 WBCS (0.0-0.0); Neutrophils # (A) 7.15 X 10*3/uL (1.80-7.70); Neutrophils % (A) 74.8 %; Platelet Count 208 X 10*3/uL (140-440); RBC 3.76 X 10*6/uL (4.10-5.20); RDW 13.2 % (11.5-14.5); WBC 9.57 X 10*3/uL (4.50-10.00)
[2023-01-07] MEDS ORDERED: SERTRALINE 100 MG TAB PO SCH (09:00)
[2023-01-07] MEDS ORDERED: METOPROLOL SUCCINATE (ER) 100 MG TAB.ER.24H PO SCH (09:00)
[2023-01-07] MEDS ORDERED: APIXABAN 5 MG TAB PO SCH (09:00)
[2023-01-07] MEDS: SACUBITRIL/VALSARTAN 49 MG-51 MG TABLET PO SCH (09:26)
[2023-01-07 09:32] VITALS: BP 104/65; PULSE 80; RESP 19; TEMP 97
--- NOTE | 2023-01-07 09:57 | P.DS ---
Providers Expected date of discharge: 01/07/23 Attending physician: Mickey Palmer Consults: 01/06/23 10:38 Consult Physician Routine Consulting Provider: Del Cazraes Consult Reason/Comments: medical management Do you want consulting provider notified?: Yes Primary care physician: Ava Thackero - Discharge Diagnosis(es) (1) Primary localized osteoarthritis of left hip Current Visit: Yes Status: Acute (2) Status post total replacement of left hip Current Visit: Yes Status: Acute Hospital Course: This is a 67-year-old Female with history of degenerative arthritis of the Left hip. The patient has failed outpatient conservative treatment and presents to discuss surgical options. After discussion and consideration the patient elects to proceed with total Left hip arthroplasty with direct anterior approach. The patient is evaluated preoperatively by the primary care physician and cleared for surgery. The patient is admitted to [facility] on 01/06/2023 for total Left hip arthroplasty was direct anterior approach. The procedure is performed without complication or sequelae. The patient is doing well postoperatively. The patient may be discharged to home today in good condition. Please see med rec for accurate list of home medications. Plan - Discharge Summary Discharge Rx Participant: No New Discharge Prescriptions: New HYDROcodone/APAP 7.5-325MG [[place] 7.5-325] 1 - 2 tab PO Q6H PRN #32 tab PRN Reason: Pain Sennosides [Senokot] 2 tab PO DAILY PRN #60 tablet PRN Reason: Constipation Cyclobenzaprine [Flexeril] 10 mg PO HS PRN #30 tab PRN Reason: Spasms No Action Cyclobenzaprine [Flexeril] 10 mg PO HS Nabumetone [Relafen] 1,500 mg PO DAILY Liothyronine Sodium [Cytomel] 10 mcg PO DAILY HYDROcodone/APAP 10-325MG [[place] 10-325] 1 tab PO TID PRN PRN Reason: Pain Metoprolol Succinate [Toprol XL] 100 mg PO DAILY Levothyroxine Sodium [Synthroid] 75 mcg PO DAILY Levothyroxine Sodium [Synthroid] 0.5 tab PO MOTUTHSA traZODone HCL [Desyrel] 50 - 100 mg PO HS Estradiol Cream [Estrace Cream 0.01%] 1 gm VAGINAL DIRECTED Sertraline [Zoloft] 200 mg PO DAILY Sacubitril/Valsartan [Entresto 49 mg-51 mg Tablet] 1 each PO BID Multivit-Min/Iron/Folic/Lutein [Centrum Silver Women Tablet] 1 each PO DAILY Rizatriptan Benzoate [Maxalt] 10 mg PO TID PRN PRN Reason: Migraine Headache Apixaban [Eliquis] 5 mg PO BID Cyclobenzaprine [Flexeril] 5 mg PO DAILY PRN PRN Reason: Pain Omeprazole Magnesium [PriLOSEC OTC] 20 mg PO BID PRN PRN Reason: Heartburn Lasix (Unknown Dose) 1 dose PO DAILY PRN PRN Reason: Edema Dapagliflozin Propanediol [Farxiga] 10 mg PO HS Discharge Medication List Cyclobenzaprine [Flexeril] 10 mg PO HS 01/07/16 [History] Nabumetone [Relafen] 1,500 mg PO DAILY 01/07/16 [History] Liothyronine Sodium [Cytomel] 10 mcg PO DAILY 05/07/16 [History] HYDROcodone/APAP 10-325MG [[place] 10-325] 1 tab PO TID PRN 09/09/16 [History] Apixaban [Eliquis] 5 mg PO BID 04/03/21 [History] Levothyroxine Sodium [Synthroid] 75 mcg PO DAILY 04/03/21 [History] Metoprolol Succinate [Toprol XL] 100 mg PO DAILY 04/03/21 [History] Cyclobenzaprine [Flexeril] 5 mg PO DAILY PRN 01/01/23 [History] Dapagliflozin Propanediol [Farxiga] 10 mg PO HS 01/01/23 [History] Estradiol Cream [Estrace Cream 0.01%] 1 gm VAGINAL DIRECTED 01/01/23 [History] Lasix (Unknown Dose) 1 dose PO DAILY PRN 01/01/23 [History] Levothyroxine Sodium [Synthroid] 0.5 tab PO MOTUTHSA 01/01/23 [History] Multivit-Min/Iron/Folic/Lutein [Centrum Silver Women Tablet] 1 each PO DAILY 01/01/23 [History] Omeprazole Magnesium [PriLOSEC OTC] 20 mg PO BID PRN 01/01/23 [History] Sacubitril/Valsartan [Entresto 49 mg-51 mg Tablet] 1 each PO BID 01/01/23 [History] Sertraline [Zoloft] 200 mg PO DAILY 01/01/23 [History] traZODone HCL [Desyrel] 50 - 100 mg PO HS 01/01/23 [History] HYDROcodone/APAP 7.5-325MG [[place] 7.5-325] 1 - 2 tab PO Q6H PRN #32 tab 01/06/23 [Rx] Rizatriptan Benzoate [Maxalt] 10 mg PO TID PRN 01/06/23 [History] Sennosides [Senokot] 2 tab PO DAILY PRN #60 tablet 01/06/23 [Rx] Cyclobenzaprine [Flexeril] 10 mg PO HS PRN #30 tab 01/07/23 [Rx] Follow up Appointment(s)/Referral(s): Mickey Palmer DO [Doctor of Osteopathic Medicine] - 2 Weeks Activity/Diet/Wound Care/Special Instructions: Weightbearing as tolerated with walker. Leave dressing intact. Dressing may be removed by home care nurse or by patient in 7 days. Then change dressing twice daily until follow up. May shower with initial dressing intact and after removal. If dressing become saturated, please remove. Please resume Eliquis. Recommend use of compression stockings daily until follow up to help prevent swelling and blood clots. May remove at night before sleeping. Please follow-up with [facility] in 2 weeks and call with any questions or concerns, . Discharge Disposition: HOME WITH HOME HEALTH SERVICES
[2023-01-07] MEDS ORDERED: ONDANSETRON 4 MG TAB PO STA ×2 (10:33→10:35)
--- NOTE | 2023-01-07 12:57 | P.CONS ---
History of Present Illness - Reason for Consult Consult date: 01/07/23 Medical management postop left hip arthroplasty - History of Present Illness This is a very pleasant 67-year-old female who was recently admitted under orthopedic services underwent left hip arthroplasty. Patient reports she follows with Dr. Laird in the outpatient setting with a past medical history of atrial fibrillation, melanoma, heart failure, fibromyalgia, GERD, hyperlipidemia, hypertension, osteoarthritis and hypothyroidism. Patient also reports she does have some anxiety and depression and is a former smoker occasionally drinks some alcohol with social events and does use edible marijuana on occasion. Patient denies any illicit drug use. Patient is postop left total hip arthroplasty and doing relatively well. Patient did have a bout of nausea this morning most likely secondary to medications and narcotics that resolved with Zofran. Will prescribe as needed oral Zofran for home. Patient with an incentive spirometer at the bedside encouraged to continue using at least 10 times every hour while awake. Patient reports she has support at home with her and has a walker. Plans for discharge today. Patient is medically stable and denies chest pain, shortness of breath, or palpitations. WBC reviewed this morning and within normal limits at 9.57, hemoglobin is stable at 11.2. Review Of Systems: Constitutional: No fever, no chills, no night sweats. No weight change. No weakness, fatigue or lethargy. No daytime sleepiness. EENT: No headache. No blurred vision or double vision, no loss of vision. No loss of Hearing, no ringing in the ears, no dizziness. No nasal drainage or congestion. No epistaxis. No sore throat. Lungs: No shortness of breath, cough, no sputum production. No wheezing. Cardiovascular: No chest pain, no lower extremity edema. No palpitations. No paroxysmal nocturnal dyspnea. No orthopnea. No lightheadedness or dizziness. No syncopal episodes. Abdominal: No abdominal pain. No nausea, vomiting. No diarrhea. No constipation. No bloody or tarry stools.. No loss of appetite. Genitourinary: No dysuria, increased frequency, urgency. No urinary retention. Musculoskeletal: No myalgias. No muscle weakness, no gait dysfunction, no frequent falls. No back pain. No neck pain. Reports of mild left hip discomfort Integumentary: No wounds, no lesions. No rash or pruritus. No unusual bruising. No change in hair or nails. Neurologic: No aphasia. No facial droop. No change in mentation. No head injury. No headache. No paralysis. No paresthesia. Psychiatric: No depression. No anxiety. No mood swings. Endocrine: No abnormal blood sugars. No weight change. No excessive sweating or thirst. No cold intolerance. PHYSICAL EXAMINATION: GENERAL: The patient is alert and oriented x4, Well developed, well nourished. HEENT: Pupils are round and equally reacting to light. EOMI. no scleral icterus. No conjunctival pallor. Normocephalic, atraumatic. No pharyngeal erythema. No thyromegaly. CARDIOVASCULAR: S1 and S2 muffled PULMONARY: Breath sounds clear to auscultation with no wheezing or rhonchi noted. ABDOMEN: soft. Nontender on exam. non-distended, normoactive bowel sounds. No palpable organomegaly. MUSCULOSKELETAL: No joint swelling or deformity. EXTREMITIES: No cyanosis, clubbing, or pedal edema. Left hip surgical dressing is dry and intact with some bruising noted although soft and palpable and there is some noted left lower extremity swelling more so than the right NEUROLOGICAL: Gross neurological examination did not reveal any focal deficits. SKIN: No rashes. Assessment: Status post left total hip arthroplasty History of atrial fibrillation, currently rate controlled Hypertension Hypothyroidism GERD History of heart failure, not in exacerbation with preserved EF Hyperlipidemia Obesity with a BMI of 35.9 Anxiety/depression GI prophylaxis DVT prophylaxis Full code Plan: Recommend to continue with current medications and management per orthopedic services. Patient was seen and evaluated by physical therapy and did relatively well. Patient plans on returning home with her who has support and does have a walker at home Home medications reviewed and resumed and encouraged to follow-up with primary care provider Dr. Laird outpatient. Patient did go to cardiology as well as Dr. Laird for pre-surgical clearance Patient with incentive spirometer at the bedside encouraged to continue using at least 10 times every hour while awake Patient did have a small episode of nausea with pain meds and will add Zofran and provided a prescription for home as needed Encouraged fluids and stool softeners with pain management deferred to orthopedics Patient is on eliquis for atrial fibrillation and will continue Patient is medically stable for discharge today Thank you kindly for this consultation. We will continue to follow during hospitalization. The impression and plan of care has been dictated by Page Masters, nurse practitioner as directed. Dr. Heidy MD I have performed a history and examination and MDM of this patient, discussed the same with the dictator, and agree with the dictator's assessment and plan as written ,documented as a scribe. Based on total visit time, I have performed more than 50% of the visit. Any additional findings or plans will be noted. Past Medical History Past Medical History: Atrial Fibrillation, Cancer, Heart Failure, Fibromyalgia, GERD/Reflux, Hyperlipidemia, Hypertension, Osteoarthritis (OA), Thyroid Disorder Additional Past Medical History / Comment(s): POTS, MTHFR mutation, hx melanoma, AICD, Hiatal hernia (recurred after surgery), diverticulitis, hypothyroid. History of Any Multi-Drug Resistant Organisms: None Reported Past Surgical History: AICD, Back Surgery, Heart Catheterization, Hysterectomy, Joint Replacement, Orthopedic Surgery Additional Past Surgical History / Comment(s): anand total knees., bilateral shoulders surgery, joint rt thumb replaced and revised. Heart cath with no stents. Right knee revision in 2015. Back surgery ., Previous pain injections. , hiatal hernia (2021), cataracts Past Anesthesia/Blood Transfusion Reactions: Previous Problems w/ Anesthesia Additional Past Anesthesia/Blood Transfusion Reaction / Comm: POTS episode during anesthesia (severe drop in BP after knee replacement surgery) Type of Cardiac Device: Permanent Pacemaker, AICD Device Placement Date:: Past Psychological History: Anxiety, Depression Smoking Status: Former smoker Past Alcohol Use History: Occasional Additional Past Alcohol Use History / Comment(s): quit smoking 2015. Smoke off and on for 30 years < 1/2 PPD Past Drug Use History: Marijuana Additional Drug Use History / Comment(s): edible marijuana, last had last week - Past Family History Sister(s) Family Medical History: Cancer, CVA/TIA Brother(s) Family Medical History: Cancer, Hypertension Medications and Allergies Home Medications Medication Instructions Recorded Confirmed Type RX: Nabumetone [Relafen] 1,500 mg PO DAILY 01/07/16 01/06/23 History RX: Liothyronine Sodium [Cytomel] 10 mcg PO DAILY 05/07/16 01/06/23 History RX: Apixaban [Eliquis] 5 mg PO BID 04/03/21 01/06/23 History RX: Levothyroxine Sodium 75 mcg PO DAILY 04/03/21 01/06/23 History [Synthroid] RX: Metoprolol Succinate [Toprol 100 mg PO DAILY 04/03/21 01/06/23 History XL] Lasix (Unknown Dose) 1 dose PO DAILY PRN 01/01/23 01/06/23 History RX: Cyclobenzaprine [Flexeril] 5 mg PO DAILY PRN 01/01/23 01/06/23 History RX: Dapagliflozin Propanediol 10 mg PO HS 01/01/23 01/06/23 History [Farxiga] RX: Estradiol Cream [Estrace Cream 1 gm VAGINAL DIRECTED 01/01/23 01/06/23 History 0.01%] RX: Levothyroxine Sodium 0.5 tab PO MOTUTHSA 01/01/23 01/06/23 History [Synthroid] RX: Multivit-Min/Iron/Folic/Lutein 1 each PO DAILY 01/01/23 01/06/23 History [Centrum Silver Women Tablet] RX: Omeprazole Magnesium [PriLOSEC 20 mg PO BID PRN 01/01/23 01/06/23 History OTC] RX: Sacubitril/Valsartan [Entresto 1 each PO BID 01/01/23 01/06/23 History 49 mg-51 mg Tablet] RX: Sertraline [Zoloft] 200 mg PO DAILY 01/01/23 01/06/23 History RX: traZODone HCL [Desyrel] 50 - 100 mg PO HS 01/01/23 01/06/23 History HYDROcodone/APAP 7.5-325MG [[place] 1 - 2 tab PO Q6H PRN #32 tab 01/06/23 Rx 7.5-325] RX: Rizatriptan Benzoate [Maxalt] 10 mg PO TID PRN 01/06/23 01/06/23 History Sennosides [Senokot] 2 tab PO DAILY PRN #60 tablet 01/06/23 Rx Ondansetron Odt [Zofran Odt] 4 mg PO Q8HR PRN #20 tab 01/07/23 Rx RX: Cyclobenzaprine [Flexeril] 10 mg PO HS PRN #30 tab 01/07/23 Rx Allergies Allergy/AdvReac Type Severity Reaction Status Date / Time gabapentin Allergy Unknown Rash/Hives, Verified 01/06/23 08:20 itching codeine Allergy Nausea & Verified 01/06/23 08:20 Vomiting Physical Exam Vitals: Vital Signs Temp Pulse Pulse Resp BP Pulse Ox 01/07/23 07:40 97.0 F L 80 19 104/65 99 01/07/23 02:00 97.6 F 78 16 96/60 95 01/06/23 19:42 98.4 F 83 18 113/73 94 L 01/06/23 14:46 97.9 F 83 18 133/66 98 01/06/23 14:15 79 15 124/61 97 01/06/23 13:55 84 15 127/62 97 01/06/23 13:25 82 15 120/58 97 01/06/23 12:55 84 15 122/58 99 01/06/23 12:25 76 16 126/58 98 01/06/23 11:55 72 16 122/57 99 01/06/23 11:25 66 15 126/57 96 01/06/23 11:10 72 15 121/53 100 01/06/23 10:55 71 14 121/58 100 01/06/23 10:40 72 15 120/56 100 01/06/23 10:25 97.4 F L 82 16 116/97 Intake and Output 01/06/23 01/07/23 01/07/23 22:59 06:59 14:59 Intake Total 50 Balance 50 Intake: Intake, IV Titration 50 Amount ceFAZolin 2 gm In Sodium 50 Chloride 0.9% 50 ml @ 100 mls/hr IVPB Q8HR [facility] Rx# :[id number] Other: Voiding Method Toilet # Voids 1 2 Weight 91.9 kg Results CBC & Chem 7: 01/07/23 06:04 Labs: Abnormal Lab Results - Last 24 Hours (Table) 01/07/23 Range/Units 06:04 RBC 3.76 L (4.10-5.20) X 10*6/uL Hgb 11.2 L (12.0-15.0) g/dL Hct 34.8 L (37.2-46.3) % Monocytes # 1.38 H (0.20-1.00) X 10*3/uL Eosinophils # 0.02 L (0.04-0.35) X 10*3/uL
== END 2023-01-07 12:55 | disposition home health service (06) ==
LOC: OR 07:43 → 4SSUR 10:25 → OR 01-07 12:55
PROVIDERS: ATTEND Orthopaedic Surgery
DX: M16.12 Unilateral primary osteoarthritis, left hip (principal); M25.752 Osteophyte, left hip; I11.0 Hypertensive heart disease with heart failure; I50.9 Heart failure, unspecified; E78.5 Hyperlipidemia, unspecified; J45.909 Unspecified asthma, uncomplicated; I48.91 Unspecified atrial fibrillation; E03.9 Hypothyroidism, unspecified; Z88.5 Allergy status to narcotic agent; Z82.49 Family history of ischemic heart disease and other diseases of the circulatory system; Z83.3 Family history of diabetes mellitus; Z86.59 Personal history of other mental and behavioral disorders; Z98.890 Other specified postprocedural states; Z79.899 Other long term (current) drug therapy
CPT/HCPCS: 97161; 97535; 97165; 64447; 86900; 86901; 85025; 86850; 73501; 27130; C1776; J2250; J1100; J0690 ×2; J2405; J3010; J2795; J2370; J2704; J1170; J2001; 88305; 88311

== ENCOUNTER 2023-06-10 09:54 | Day surgery (SDC) | payer MEDICARE ==
[~2023-06-10 09:54] MED LIST changes: -ACETAMINOPHEN TAB 500 MG TAB PO PRN; -HYDROmorphone 0.5 MG/0.5 ML SYRINGE IVP PRN; +LACTATED RINGERS 1,000 ML IV SCH; -MELOXICAM 7.5 MG TAB PO PRN; -ONDANSETRON 4 MG/2 ML VIAL IVP ONE; -TRANEXAMIC ACID IN NACL,ISO-OS 1,000 MG in SALINE 1 100ML.BAG IVPB PRN; -fentaNYL (PF) 50 MCG/ML 2 ML AMP IV PRN
[2023-06-10 10:45] VITALS: RESP 16; TEMP 97.2
[2023-06-10] MEDS ORDERED: PROPOFOL 10 MG/ML 20 ML VIAL IV ONE (11:39)
--- NOTE | 2023-06-10 11:57 | P.PCN ---
Date of Procedure: 06/10/23 Procedure(s) Performed: BRIEF HISTORY: Patient is a is a 68-year-old pleasant white female scheduled for an elective colonoscopy as a part of evaluation of change in bowel habits for the last 1 year duration. She is been having alternating diarrhea and constipation. PROCEDURE PERFORMED: Colonoscopy with biopsy. PREOPERATIVE DIAGNOSIS: Change in bowel habits. IV sedation per Anesthesia. PROCEDURE: After informed consent was obtained, the patient, was brought into the endoscopy unit. IV sedation was administered by Anesthesia under continuous monitoring. Digital rectal examination was normal. Initially the Olympus CF-160 flexible video colonoscope was then inserted in the rectum, gradually advanced into the cecum without any difficulty. Careful examination was performed as the scope was gradually being withdrawn. Ileocecal valve and the appendiceal orifice were visualized and appeared normal. Prep was excellent. Mucosa of the cecum, ascending colon, transverse colon, appeared normal. In the descending colon there was a 3 mm sessile polyp that was removed by cold biopsy. Rest of the descending colon, sigmoid colon, and rectum appeared normal. Retroflexion was performed in the rectum and all internal hemorrhoids were seen. The patient tolerated the procedure well. IMPRESSION: 3 mm sessile descending colon polyp status post cold biopsy Rest of the colon appeared normal Small internal hemorrhoids RECOMMENDATIONS: Findings of this examination were discussed with the patient well as her family. She was advised to follow with the biopsy results. In the meantime suggested that she start on osmotic laxatives with MiraLAX every day and try to regulate her bowel movements. Recommend repeat colonoscopy in 5 years..
[2023-06-10 12:32] VITALS: BP 132/60; PULSE 92
== END 2023-06-10 12:45 | disposition home or self-care (01) ==
LOC: ORWHC2ENDO 09:54
PROVIDERS: ATTEND Internal Medicine Gastroenterology
DX: K63.5 Polyp of colon (principal); K64.8 Other hemorrhoids; I10 Essential (primary) hypertension; E78.5 Hyperlipidemia, unspecified; E07.9 Disorder of thyroid, unspecified; K44.9 Diaphragmatic hernia without obstruction or gangrene; Z79.01 Long term (current) use of anticoagulants; Z79.891 Long term (current) use of opiate analgesic; Z79.890 Hormone replacement therapy; Z79.899 Other long term (current) drug therapy; Z85.820 Personal history of malignant melanoma of skin; Z86.2 Personal history of diseases of the blood and blood-forming organs and certain disorders involving the immune mechanism; Z88.9 Allergy status to unspecified drugs, medicaments and biological substances; Z88.5 Allergy status to narcotic agent; Z96.653 Presence of artificial knee joint, bilateral
CPT/HCPCS: 88305; 45380; J2704

== ENCOUNTER → 2023-09-14 | Outpatient (CLI) | payer MEDICARE ==
--- NOTE | 2023-09-14 09:01 | US ---
EXAMINATION TYPE: US abdomen complete DATE OF EXAM: 09/14/2023 COMPARISON: CT 12/23/22 CLINICAL INDICATION: Female, 68 years old with history of R10.9 UNSPECIFIED ABDOMINAL PAIN; TECHNIQUE: Multiple sonographic images of the abdomen are obtained. FINDINGS: EXAM MEASUREMENTS: Liver Length: 16.8 cm Gallbladder Wall: 0.27 cm CBD: 0.48 cm Spleen: 8.0 x 9.8 x 4.9 cm Right Kidney: 11.4 x 4.5 x 4.2 cm Left Kidney: 10.6 x 4.4 x 4.7 cm INCLINOMETER TESTER NOTES: Pancreas: Tail obscured by overlying bowel gas Liver: wnl Gallbladder: wnl Evidence for sonographic Lindo's sign: No CBD: wnl Spleen: wnl Right Kidney: wnl Left Kidney: wnl Upper IVC: wnl Abd Aorta: Plaque noted throughout. IMPRESSION: 1. No acute abdomen ultrasound abnormality.
== END | disposition home or self-care (01) ==
LOC: RADUSWWP 07:22
PROVIDERS: ATTEND Internal Medicine Geriatric Medicine
DX: R10.9 Unspecified abdominal pain (principal)
CPT/HCPCS: 76700

== ENCOUNTER → 2023-12-15 | Outpatient (CLI) | payer MEDICARE ==
[2023-12-15 16:24] LABS: Basophils # (A) 0.05 X 10*3/uL (0.00-0.10); Eosinophils # (A) 0.14 X 10*3/uL (0.04-0.35); Eosinophils % (A) 2.9 %; HCT 40.4 % (37.2-46.3); HGB 13.1 g/dL (12.0-15.0); Lymphocytes # (A) 1.66 X 10*3/uL (0.90-5.00); Lymphocytes % (A) 33.8 %; MCH 30.1 pg (27.0-32.0); MCHC 32.4 g/dL (32.0-37.0); MCV 92.9 FL (80.0-97.0); Monocytes # (A) 0.53 X 10*3/uL (0.20-1.00); Monocytes % (A) 10.8 %; NRBC Per 100 WBC 0 X 10*3/uL (0.00-0.01); Neutrophils # (A) 2.52 X 10*3/uL (1.80-7.70); Neutrophils % (A) 51.3 %; Platelet Count 236 X 10*3/uL (140-440); RBC 4.35 X 10*6/uL (4.10-5.20); RDW 12.8 % (11.5-14.5); WBC 4.91 X 10*3/uL (4.50-10.00)
[2023-12-15 16:44] LABS: ALT 21 U/L (8-44); AST 28 U/L (13-35); Albumin 4.1 g/dL (3.8-4.9); Albumin/Globulin Ratio 2.41 Ratio (1.60-3.17); Alkaline Phosphatase 69 U/L (41-126); BUN/Creat Ratio 14.56 Ratio (12.00-20.00); Blood Urea Nitrogen 13.1 mg/dL (9.0-27.0); Calcium 9.2 mg/dL (8.7-10.3); Carbon Dioxide 27.4 mmol/L (21.6-31.8); Chloride 107 mmol/L (96-109); Chol/HDL Ratio 2.61 Ratio; Globulin 1.7 g/dL (1.6-3.3); Glucose 91 mg/dL (70-110); LDL Cholesterol,Calculated 71.4 mg/dL (0.0-131.0); Potassium 4.2 mmol/L (3.5-5.5); Sodium 143 mmol/L (135-145); T4, Free (Free Thyroxine) 1.13 ng/dL (0.80-1.80); Total Bilirubin 0.5 mg/dL (0.3-1.2); Total Protein 5.8 g/dL (6.2-8.2)
== END | disposition home or self-care (01) ==
LOC: LABWHC1 08:34
PROVIDERS: ATTEND Internal Medicine Cardiovascular Disease
DX: Z00.01 Encounter for general adult medical examination with abnormal findings (principal); I48.0 Paroxysmal atrial fibrillation; E78.00 Pure hypercholesterolemia, unspecified; R73.9 Hyperglycemia, unspecified
CPT/HCPCS: 36415; 80053; 80061; 82306; 82607; 83036; 84439; 84443; 85025

== ENCOUNTER → 2024-02-29 | Outpatient (CLI) | payer MEDICARE ==
--- NOTE | 2024-02-29 17:35 | US ---
EXAMINATION TYPE: US bladder DATE OF EXAM: 02/29/2024 COMPARISON: NONE CLINICAL INDICATION: Female, 68 years old with history of R33.8 RETENTION OF URINE; Pt states she fee ls she is unable to properly empty her bladder TECHNIQUE: Multiple sonographic images of the bladder are obtained. FINDINGS: EXAM MEASUREMENTS: Pre Void Volume: 102 mL Post Void Residual Volume: 32 mL MANAGER PROGRESSIVE CARE NOTES: Color Doppler performed to assess ureteral jets. Bilateral Jets seen: No Normal Post Void Residual (less than 50ml): Yes IMPRESSION: 1. No evidence for acute process. 2. Post void residual as above..
== END | disposition home or self-care (01) ==
LOC: RADUSWWP 15:27
PROVIDERS: ATTEND Family Medicine
DX: R33.8 Other retention of urine (principal)
CPT/HCPCS: 76857

== ENCOUNTER 2024-03-29 17:39 | Emergency (ER) | payer MEDICARE ==
--- NOTE | 2024-03-29 18:05 | ED ---
Upper Extremity HPI - General Source: patient, RN notes reviewed <Pooja Lopez - Last Filed: 03/29/24 18:03> <Jaron Kennedy - Last Filed: 03/30/24 00:24> - General Stated Complaint: Fall L Wrist Injury Time Seen by Provider: 03/29/24 17:51 - History of Present Illness Initial Comments: Quick Note-is a 68-year-old female presents emergency department chief complaint of a fall. Patient was outside when she tripped falling on her outstretched left wrist. Denies presyncopal symptoms before time of the fall, states that she tripped. She denies hitting her head or loss of consciousness. No blood thinner use. Patient has mild paresthesias to the left distal digits. (Pooja Lopez) 68-year-old female presenting with chief complaint of left wrist pain. Patient tripped and fell back onto her outstretched hand and states that all of her weight was on the left side. She denies any head injury or loss of consciousness. No blood thinner use. She has full sensation of the fingers, states that she can move them but is quite painful to do so. [facility] (Jaron Kennedy) - Related Data Home Medications Medication Instructions Recorded Confirmed Nabumetone [Relafen] 1,500 mg PO QAM 01/07/16 06/08/23 Liothyronine Sodium [Cytomel] 10 mcg PO QAM 05/07/16 06/08/23 Apixaban [Eliquis] 5 mg PO BID 04/03/21 06/08/23 Levothyroxine Sodium [Synthroid] 75 mcg PO DAILY 04/03/21 06/08/23 Metoprolol Succinate [Toprol XL] 100 mg PO QAM 04/03/21 06/08/23 Cyclobenzaprine [Flexeril] 5 mg PO DAILY PRN 01/01/23 06/08/23 Dapagliflozin Propanediol [Farxiga] 10 mg PO HS 01/01/23 06/08/23 Estradiol Cream [Estrace Cream 1 gm VAGINAL DIRECTED 01/01/23 06/08/23 0.01%] Levothyroxine Sodium [Synthroid] 0.5 tab PO TUFR 01/01/23 06/08/23 Multivit-Min/Iron/Folic/Lutein 1 each PO DAILY 01/01/23 06/08/23 [Centrum Silver Women Tablet] Omeprazole Magnesium [PriLOSEC OTC] 20 mg PO QAM 01/01/23 06/08/23 Sacubitril/Valsartan [Entresto 49 1 each PO BID 01/01/23 06/08/23 mg-51 mg Tablet] traZODone HCL [Desyrel] 100 mg PO HS 01/01/23 06/08/23 Rizatriptan Benzoate [Maxalt] 10 mg PO TID PRN 01/06/23 06/08/23 Furosemide [Lasix] 20 mg PO QAM 06/08/23 06/08/23 HYDROcodone/APAP 10-325MG [[place] 1 tab PO DAILY 06/08/23 06/08/23 10-325] Allergies Allergy/AdvReac Type Severity Reaction Status Date / Time gabapentin Allergy Unknown Rash/Hives, Verified 06/10/23 10:22 itching codeine Allergy Nausea & Verified 03/29/24 18:21 Vomiting Review of Systems ROS Other: All systems not noted in ROS Statement are negative. <Pooja Lopez - Last Filed: 03/29/24 18:03> ROS Other: All systems not noted in ROS Statement are negative. <Jaron Kennedy - Last Filed: 03/30/24 00:24> ROS Statement: Those systems with pertinent positive or pertinent negative responses have been documented in the HPI. Past Medical History Past Medical History: Asthma, Cancer, Fibromyalgia, Hyperlipidemia, Hypertension, Osteoarthritis (OA), Thyroid Disorder Additional Past Medical History / Comment(s): POTS, MTHFR mutation, hx melanoma (BACK), AICD, Hiatal hernia (recurred after surgery), diverticulitis, hypothyroid. History of Any Multi-Drug Resistant Organisms: None Reported Past Surgical History: AICD, Back Surgery, Heart Catheterization, Hysterectomy, Joint Replacement, Orthopedic Surgery Additional Past Surgical History / Comment(s): bilateral knee replacement, and bilateral ROTATOR CUFFshoulders, joint rt thumb replaced and revised. Heart cath 15 years ago with no stents. Right knee revision in 2016. Back surgery 5 years ago. Previous pain injections. Past Anesthesia/Blood Transfusion Reactions: Previous Problems w/ Anesthesia, Postoperative Nausea & Vomiting (PONV) Additional Past Anesthesia/Blood Transfusion Reaction / Comment(s): POTS episode during anesthesia (severe drop in BP after previous knee replacement surgery) Type of Cardiac Device: AICD Device Placement Date:: 02/2016 Past Psychological History: Depression Smoking Status: Former smoker Past Alcohol Use History: Occasional Additional Past Alcohol Use History / Comment(s): quit smoking 2015. Smoke off and on for 30 years < 1/2 PPD Past Drug Use History: None Reported Additional Drug Use History / Comment(s): edible marijuana, last had last week - Past Family History Sister(s) Family Medical History: Cancer, CVA/TIA Brother(s) Family Medical History: Cancer, Hypertension <Pooja Lopez - Last Filed: 03/29/24 18:03> General Exam <Pooja Lopez - Last Filed: 03/29/24 18:03> Limitations: no limitations General appearance: alert, in no apparent distress Head exam: Present: atraumatic, normocephalic Eye exam: Present: normal appearance, EOMI Neck exam: Present: normal inspection. Absent: meningismus Respiratory exam: Absent: respiratory distress Cardiovascular Exam: Present: regular rate Left Hand Wrist exam: Present: tenderness, swelling, deformity. Absent: full ROM Vascular: Absent: vascular compromise Neurological exam: Present: alert, oriented X3 Psychiatric exam: Present: normal affect, normal mood Skin exam: Present: warm, dry, abrasion <Jaron Kennedy - Last Filed: 03/30/24 00:24> - General Exam Comments Initial Comments: Visual Physical Exam Vital signs reviewed General: Well-appearing, nontoxic, no acute distress. Head: Normocephalic, atraumatic Eyes: PERRLA, EOMI ENT: Airway patent Chest: Nonlabored breathing Skin: No visual rash, normal skin tone Neuro: Alert and oriented 3 Musculoskeletal: No gross abnormalities (KinjalelePooja gordon) Course Vital Signs 03/29/24 03/29/24 18:18 22:27 Temperature 97.8 F 97.9 F Pulse Rate 64 71 Respiratory 18 18 Rate Blood Pressure 101/66 106/68 O2 Sat by Pulse 97 98 Oximetry Procedures - Orthopedic Splinting/Casting Injury #1 Side: left Upper Extremity Injury Location: wrist Upper Extremity Immobilizer: sugar tong splint <Jaron Kennedy - Last Filed: 03/30/24 00:24> Medical Decision Making <Pooja Lopez - Last Filed: 03/29/24 18:03> <Jaron Kennedy - Last Filed: 03/30/24 00:24> - Medical Decision Making I completed the quick note portion of this chart signed Pooja Lopez PA-C (Pooja Lopez) Was pt. sent in by a medical professional or institution (LEATHA Foster, ATTENDING AMBULATORY CARE, urgent care, hospital, or [place] health care facility...) When possible be specific @ -No Did you speak to anyone other than the patient for history (EMS, parent, family, police, friend...)? What history was obtained from this source @ -No Did you review nursing and triage notes (agree or disagree)? Why? @ -I reviewed and agree with nursing and triage notes Were old charts reviewed (outside hosp., previous admission, EMS record, old EKG, old radiological studies, urgent care reports/EKG's, [place] health care facility records)? Report findings @ -No old charts were reviewed Differential Diagnosis (chest pain, altered mental status, abdominal pain women, abdominal pain men, vaginal bleeding, weakness, fever, dyspnea, syncope, headache, dizziness, GI bleed, back pain, seizure, CVA, palpatations, mental health, musculoskeletal)? @ -Differential includes fracture, dislocation, sprain, strain, this is not an all-inclusive list EKG interpreted by me (3pts min.). @ -As above X-rays interpreted by me (1pt min.). @ -X-ray shows acute fracture of the distal radius with intra-articular extension and dorsal angulation. There is associated ulnar styloid process fracture. Diffuse soft tissue swelling present. CT interpreted by me (1pt min.). @ -None done U/S interpreted by me (1pt. min.). @ -None done What testing was considered but not performed or refused? (CT, X-rays, U/S, labs)? Why? @ -None What meds were considered but not given or refused? Why? @ -None Did you discuss the management of the patient with other professionals (professionals i.e. LEATHA Foster, ATTENDING AMBULATORY CARE, lab, RT, psych nurse, social media specialist, rv detailer, teacher, intelligence officer, case worker)? Give summary @ -No Was smoking cessation discussed for >3mins.? @ -No Was critical care preformed (if so, how long)? @ -No Were there social determinants of health that impacted care today? How? (Homelessness, low income, unemployed, alcoholism, drug addiction, transportation, low edu. Level, literacy, decrease access to med. care, correction, rehab)? @ -No Was there de-escalation of care discussed even if they declined (Discuss DNR or withdrawal of care, Hospice)? DNR status @ -No What co-morbidities impacted this encounter? (DM, HTN, Smoking, COPD, CAD, Cancer, CVA, ARF, Chemo, Hep., AIDS, mental health diagnosis, sleep apnea, morbid obesity)? @ -None Was patient admitted / discharged? Hospital course, mention meds given and route, prescriptions, significant lab abnormalities, going to OR and other pertinent info. @ -68-year-old female presenting with chief complaint of left wrist pain after falling onto her outstretched hand. X-ray shows evidence of distal radius fracture as well as ulnar styloid process fracture. Hematoma block was performed by my attending Dr. Yang. Gentle traction was used to help better align the fracture. Sugar-tong splint was placed. Patient will follow- up with orthopedics. Discharged. Follow-up with PCP. Report back to ER with any new or worsening symptoms. Discussed return parameters and answered all questions. Patient conveyed verbal understanding and agreed to the plan. I discussed this case in detail with my attending Dr. Yang Undiagnosed new problem with uncertain prognosis? @ -No Drug Therapy requiring intensive monitoring for toxicity (Heparin, Nitro, Insulin, Cardizem)? @ -No Were any procedures done? @ -Hematoma block, splint applied Diagnosis/symptom? @ -Distal radius fracture, ulnar styloid process fracture Acute, or Chronic, or Acute on Chronic? @ -Acute Uncomplicated (without systemic symptoms) or Complicated (systemic symptoms)? @ -uncomplicated Side effects of treatment? @ -No Exacerbation, Progression, or Severe Exacerbation? @ -No Poses a threat to life or bodily function? How? (Chest pain, [place], [place], pneumonia, PE, COPD, DKA, ARF, appy, cholecystitis, CVA, Diverticulitis, Homicidal, Suicidal, threat to staff... and all critical care pts) @ -Low likelihood (Jaron Kennedy) Disposition <Pooja Lopez - Last Filed: 03/29/24 18:03> Is patient prescribed a controlled substance at d/c from ED?: No Time of Disposition: 22:12 <Jaron Kennedy - Last Filed: 03/30/24 00:24> Clinical Impression: Distal radius fracture Disposition: HOME SELF-CARE Condition: Good Instructions (If sedation given, give patient instructions): Wrist Fracture in Adults (ED) Additional Instructions: Follow-up with orthopedics. Report back to ER with any new or worsening symptoms. Referrals: Ava Laird MD [Primary Care Provider] - 1-2 days Nestor Lindo MD [STAFF PHYSICIAN] - 1-2 days
[2024-03-29 18:21] VITALS: RESP 18
--- NOTE | 2024-03-29 20:25 | XR ---
EXAMINATION TYPE: XR hand complete LT, XR wrist complete LT, XR forearm LT DATE OF EXAM: 03/29/2024 7:50 PM CLINICAL INDICATION:Female, 68 years old with history of fall, injury, deformity; [facility] COMPARISON: None TECHNIQUE: XR hand complete LT, XR wrist complete LT, XR forearm LT Frontal, lateral and oblique view s were obtained. Frontal and lateral views of the forearm FINDINGS/IMPRESSION: Acute fracture of the distal radius with intra-articular extension and dorsal angulation. There is as sociated ulnar styloid process fracture. Diffuse soft tissue swelling present.
[2024-03-29] MEDS: HYDROcodone/APAP 10-325MG 1 EACH TAB PO ONE (21:00)
[2024-03-29] MEDS: LIDOCAINE 1% INJ 10MG/ML (20 ML MDV) SQ ONE (21:20)
[2024-03-29 22:28] VITALS: BP 106/68; PULSE 71; TEMP 97.9
== END 2024-03-29 22:28 | disposition home or self-care (01) ==
LOC: EC 17:39
DX: S52.612A Displaced fracture of left ulna styloid process, initial encounter for closed fracture (principal); S52.572A Other intraarticular fracture of lower end of left radius, initial encounter for closed fracture; Z87.891 Personal history of nicotine dependence; Z88.5 Allergy status to narcotic agent; Z88.8 Allergy status to other drugs, medicaments and biological substances; W01.0XXA Fall on same level from slipping, tripping and stumbling without subsequent striking against object, initial encounter
CPT/HCPCS: 73090; 73110; 73130; 99284; 29125; J2001

== ENCOUNTER 2024-03-30 02:50 | Emergency (ER) | payer MEDICARE ==
[2024-03-30 02:53] VITALS: RESP 18
--- NOTE | 2024-03-30 03:20 | ED ---
Recheck HPI - General Chief Complaint: Recheck/Abnormal Lab/Rx Stated Complaint: re-check, tight cast Time Seen by Provider: 03/30/24 02:55 Source: patient Mode of arrival: ambulatory Limitations: no limitations - History of Present Illness Initial Comments: 68-year-old female presenting for reevaluation. Patient was seen here earlier today, x-ray showed distal radius fracture and ulnar styloid fracture. She is placed in a sugar-tong splint and instructed to follow-up with orthopedics. Patient returning tonight because she feels numbness in the thumb and pointer finger. No numbness in the third through fifth fingers. She has normal range of motion of the fingers. She was worried that her splint is too tight, she tried on wrapping it and rewrapping it but this did not seem to help. - Related Data Home Medications Medication Instructions Recorded Confirmed Nabumetone [Relafen] 1,500 mg PO QAM 01/07/16 06/08/23 Liothyronine Sodium [Cytomel] 10 mcg PO QAM 05/07/16 06/08/23 Apixaban [Eliquis] 5 mg PO BID 04/03/21 06/08/23 Levothyroxine Sodium [Synthroid] 75 mcg PO DAILY 04/03/21 06/08/23 Metoprolol Succinate [Toprol XL] 100 mg PO QAM 04/03/21 06/08/23 Cyclobenzaprine [Flexeril] 5 mg PO DAILY PRN 01/01/23 06/08/23 Dapagliflozin Propanediol [Farxiga] 10 mg PO HS 01/01/23 06/08/23 Estradiol Cream [Estrace Cream 1 gm VAGINAL DIRECTED 01/01/23 06/08/23 0.01%] Levothyroxine Sodium [Synthroid] 0.5 tab PO TUFR 01/01/23 06/08/23 Multivit-Min/Iron/Folic/Lutein 1 each PO DAILY 01/01/23 06/08/23 [Centrum Silver Women Tablet] Omeprazole Magnesium [PriLOSEC OTC] 20 mg PO QAM 01/01/23 06/08/23 Sacubitril/Valsartan [Entresto 49 1 each PO BID 01/01/23 06/08/23 mg-51 mg Tablet] traZODone HCL [Desyrel] 100 mg PO HS 01/01/23 06/08/23 Rizatriptan Benzoate [Maxalt] 10 mg PO TID PRN 01/06/23 06/08/23 Furosemide [Lasix] 20 mg PO QAM 06/08/23 06/08/23 HYDROcodone/APAP 10-325MG [[place] 1 tab PO DAILY 06/08/23 06/08/23 10-325] Allergies Allergy/AdvReac Type Severity Reaction Status Date / Time gabapentin Allergy Unknown Rash/Hives, Verified 03/30/24 02:53 itching codeine Allergy Nausea & Verified 03/30/24 02:53 Vomiting Review of Systems ROS Statement: Those systems with pertinent positive or pertinent negative responses have been documented in the HPI. ROS Other: All systems not noted in ROS Statement are negative. Past Medical History Past Medical History: Asthma, Cancer, Fibromyalgia, Hyperlipidemia, Hypertension, Osteoarthritis (OA), Thyroid Disorder Additional Past Medical History / Comment(s): POTS, MTHFR mutation, hx melanoma (BACK), AICD, Hiatal hernia (recurred after surgery), diverticulitis, hypothyroid. History of Any Multi-Drug Resistant Organisms: None Reported Past Surgical History: AICD, Back Surgery, Heart Catheterization, Hysterectomy, Joint Replacement, Orthopedic Surgery Additional Past Surgical History / Comment(s): bilateral knee replacement, and bilateral ROTATOR CUFFshoulders, joint rt thumb replaced and revised. Heart cath 15 years ago with no stents. Right knee revision in 2016. Back surgery 5 years ago. Previous pain injections. Past Anesthesia/Blood Transfusion Reactions: Previous Problems w/ Anesthesia, Postoperative Nausea & Vomiting (PONV) Additional Past Anesthesia/Blood Transfusion Reaction / Comment(s): POTS episode during anesthesia (severe drop in BP after previous knee replacement surgery) Type of Cardiac Device: AICD Device Placement Date:: 02/2016 Past Psychological History: Depression Smoking Status: Former smoker Past Alcohol Use History: Occasional Past Drug Use History: Marijuana - Past Family History Sister(s) Family Medical History: Cancer, CVA/TIA Brother(s) Family Medical History: Cancer, Hypertension General Exam Limitations: no limitations General appearance: alert, in no apparent distress Head exam: Present: atraumatic, normocephalic Eye exam: Present: normal appearance, EOMI Neck exam: Present: normal inspection. Absent: meningismus Cardiovascular Exam: Present: regular rate Left Hand Wrist exam: Present: tenderness, swelling Vascular: Present: radial pulse (2+). Absent: vascular compromise Neurological exam: Present: alert, oriented X3 Psychiatric exam: Present: normal affect, normal mood Skin exam: Present: warm, dry Course Vital Signs 03/30/24 03/30/24 02:52 03:27 Temperature 98.1 F 97.9 F Pulse Rate 61 78 Respiratory 18 18 Rate Blood Pressure 120/73 121/74 O2 Sat by Pulse 97 98 Oximetry Medical Decision Making - Medical Decision Making Was pt. sent in by a medical professional or institution (, PA, IT SUPPORT CONSULTANT, urgent care, hospital, or prison...) When possible be specific @ -No Did you speak to anyone other than the patient for history (EMS, parent, family, police, friend...)? What history was obtained from this source @ -No Did you review nursing and triage notes (agree or disagree)? Why? @ -I reviewed and agree with nursing and triage notes Were old charts reviewed (outside hosp., previous admission, EMS record, old EKG, old radiological studies, urgent care reports/EKG's, prison records)? Report findings @ -No old charts were reviewed Differential Diagnosis (chest pain, altered mental status, abdominal pain women, abdominal pain men, vaginal bleeding, weakness, fever, dyspnea, syncope, headache, dizziness, GI bleed, back pain, seizure, CVA, palpatations, mental h ealth, musculoskeletal)? @ -Differential Musculoskeletal Muscular strain, contusion, ligament sprain, fracture, arthritis, septic arthritis, bursitis, cellulitis, muscle spasm, nerve compression, DVT, arterial occlusion, herpes zoster, electrolyte abnormality, tumor.... This is not meant to be in all inclusive list EKG interpreted by me (3pts min.). @ -As above X-rays interpreted by me (1pt min.). @ -None done CT interpreted by me (1pt min.). @ -None done U/S interpreted by me (1pt. min.). @ -None done What testing was considered but not performed or refused? (CT, X-rays, U/S, labs)? Why? @ -None What meds were considered but not given or refused? Why? @ -None Did you discuss the management of the patient with other professionals (professionals i.e. , PA, IT SUPPORT CONSULTANT, lab, RT, psych nurse, oncology social worker, ambulance driver paramedic, teacher, operations officer trust department, manager case management)? Give summary @ -No Was smoking cessation discussed for >3mins.? @ -No Was critical care preformed (if so, how long)? @ -No Were there social determinants of health that impacted care today? How? (Homelessness, low income, unemployed, alcoholism, drug addiction, transportation, low edu. Level, literacy, decrease access to med. care, retirement, rehab)? @ -No Was there de-escalation of care discussed even if they declined (Discuss DNR or withdrawal of care, Hospice)? DNR status @ -No What co-morbidities impacted this encounter? (DM, HTN, Smoking, COPD, CAD, Cancer, CVA, ARF, Chemo, Hep., AIDS, mental health diagnosis, sleep apnea, morbid obesity)? @ -None Was patient admitted / discharged? Hospital course, mention meds given and route, prescriptions, significant lab abnormalities, going to OR and other pertinent info. @ -68-year-old female presenting with chief complaint of numbness in her thumb and pointer finger. Earlier today placed in a sugar-tong splint after sustaining a distal radius fracture and ulnar styloid process fracture. 2+ pulse, fingers are warm. She is having some paresthesias over the thumb and po inter finger. Suspect this is due to the joint involvement as well as a significant amount of swelling to area. Normal range of motion of the fingers. Sugar-tong splint was reapplied and loosely wrapped. Follow-up orthopedics. Discharged follow-up with PCP. Report back to ER with any new or worsening symptoms. Discussed return parameters and answered all questions. Patient conveyed verbal understanding and agreed to the plan. I discussed this case in detail with my attending Dr. Alfaro Undiagnosed new problem with uncertain prognosis? @ -No Drug Therapy requiring intensive monitoring for toxicity (Heparin, Nitro, Insulin, Cardizem)? @ -No Were any procedures done? @ -Splint applied Diagnosis/symptom? @ -Distal radius fracture Acute, or Chronic, or Acute on Chronic? @ -Acute Uncomplicated (without systemic symptoms) or Complicated (systemic symptoms)? @ -Uncomplicated Side effects of treatment? @ -No Exacerbation, Progression, or Severe Exacerbation? @ -No Poses a threat to life or bodily function? How? (Chest pain, [place], [place], pneumonia, PE, COPD, DKA, ARF, appy, cholecystitis, CVA, Diverticulitis, Homicidal, Suicidal, threat to staff... and all critical care pts) @ -No Disposition Clinical Impression: Distal radius fracture Disposition: HOME SELF-CARE Condition: Good Additional Instructions: Follow-up with orthopedics. Report back to ER with any new or worsening symptoms. Is patient prescribed a controlled substance at d/c from ED?: No Referrals: None,Stated [Primary Care Provider] - 1-2 days Nestor Lindo MD [STAFF PHYSICIAN] - 1-2 days Time of Disposition: 03:20
[2024-03-30 03:29] VITALS: BP 121/74; PULSE 78; TEMP 97.9
== END 2024-03-30 03:28 | disposition home or self-care (01) ==
LOC: EC 02:50
DX: S52.502A Unspecified fracture of the lower end of left radius, initial encounter for closed fracture (principal); S52.612A Displaced fracture of left ulna styloid process, initial encounter for closed fracture; Z88.5 Allergy status to narcotic agent; Z88.8 Allergy status to other drugs, medicaments and biological substances; Z87.891 Personal history of nicotine dependence; X58.XXXA Exposure to other specified factors, initial encounter
CPT/HCPCS: 99283

== ENCOUNTER → 2024-04-04 | Outpatient (CLI) | payer MEDICARE ==
--- NOTE | 2024-04-04 12:44 | CT ---
EXAMINATION TYPE: CT wrist LT wo con DATE OF EXAM: 04/04/2024 COMPARISON: Radiographs 03/29/2024 HISTORY: 68-year-old female S52.612A DISP FX OF LEFT ULNA STYLOID PROCESS, INI, DISP FX OF LEFT ULNA STYLOID PROCESS SX PLANNING TECHNIQUE: CT of the left wrist without IV contrast. Coronal and sagittal reconstructions performed. 3-D reconstructions generated on a dedicated independent workstation. CT DLP: 145.90 mGycm Automated exposure control for dose reduction was used. FINDINGS: Comminuted fracture of the distal radial metaphysis and epiphysis is redemonstrated. Impaction measur ing up to 8 mm. There is radial displacement of the radial styloid process fracture fragment by 6 mm. Dorsal displacement of the Mee's tubercle fracture fragment by up to 5 mm. The changes result in a articular surface defect measuring up to 7 mm wide especially along the mid d orsal aspect of the radial articular surface. Fracture extension also into the distal radioulnar joint. Nondisplaced transverse fracture at the bas e of the ulnar styloid process also noted. Moderate to severe degenerative change at the first CMC joint. Mild degenerative change triscaphe ghulam nt. Overlying plaster cast. IMPRESSION: 1. COMMINUTED AND IMPACTED FRACTURE DISTAL RADIAL METAPHYSIS AND EPIPHYSIS OUTLINED ABOVE. INTRA-A RTICULAR EXTENSION AT THE RADIOCARPAL AND DISTAL RADIOULNAR JOINTS. 2. WHILE THERE IS NO SIGNIFICANT ARTICULAR SURFACE INCONGRUENCE, THE MILD DISPLACEMENT AND IMPACTION RESULTS IN A 7 MM WIDE DEFECT OF THE RADIAL ARTICULAR SURFACE ALONG THE MID DORSAL ASPECT. 3. MODERATE TO SEVERE OA AT THE BASAL JOINT OF THE THUMB. 4. NONDISPLACED TRANSVERSE FRACTURE THROUGH THE BASE OF THE ULNAR STYLOID PROCESS.
== END | disposition home or self-care (01) ==
LOC: RADCTMAIN 10:33
PROVIDERS: ATTEND Orthopaedic Surgery
DX: S52.612A Displaced fracture of left ulna styloid process, initial encounter for closed fracture (principal); S52.615A Nondisplaced fracture of left ulna styloid process, initial encounter for closed fracture; S52.502A Unspecified fracture of the lower end of left radius, initial encounter for closed fracture; S52.532A Colles' fracture of left radius, initial encounter for closed fracture

== ENCOUNTER → 2024-06-10 | Outpatient (CLI) | payer MEDICARE ==
[2024-06-10 20:22] LABS: Basophils # (A) 0.04 X 10*3/uL (0.00-0.10); Basophils % (A) 0.4 %; Eosinophils # (A) 0.23 X 10*3/uL (0.04-0.35); Eosinophils % (A) 2.5 %; HCT 43.4 % (37.2-46.3); HGB 14.2 g/dL (12.0-15.0); Lymphocytes # (A) 1.29 X 10*3/uL (0.90-5.00); Lymphocytes % (A) 14.3 %; MCH 30.5 pg (27.0-32.0); MCHC 32.7 g/dL (32.0-37.0); MCV 93.1 FL (80.0-97.0); Mean Platelet Volume 11.1 FL (9.5-12.2); Monocytes % (A) 13.3 %; NRBC Per 100 WBC 0 X 10*3/uL (0.00-0.01); Neutrophils # (A) 6.22 X 10*3/uL (1.80-7.70); Neutrophils % (A) 69.1 %; Platelet Count 281 X 10*3/uL (140-440); RBC 4.66 X 10*6/uL (4.10-5.20); RDW 12.7 % (11.5-14.5); WBC 9.02 X 10*3/uL (4.50-10.00)
[2024-06-10 20:32] LABS: Erythrocyte Sedimentation Rate 10 mm/Hr (0-30)
[2024-06-10 21:00] LABS: BUN/Creat Ratio 17.78 Ratio (12.00-20.00); Chloride 104 mmol/L (96-109); Glucose 111 mg/dL (70-110); Magnesium 2.1 mg/dL (1.5-2.4); Sodium 140 mmol/L (135-145); Uric Acid 3.4 mg/dL (2.9-7.7)
[2024-06-10 21:01] LABS: ALT 20 U/L (8-44); AST 21 U/L (13-35); Albumin 4.3 g/dL (3.8-4.9); Albumin/Globulin Ratio 2.05 Ratio (1.60-3.17); Alkaline Phosphatase 82 U/L (41-126); Calcium 9.2 mg/dL (8.7-10.3); Carbon Dioxide 22.8 mmol/L (21.6-31.8); Globulin 2.1 g/dL (1.6-3.3); T4, Free (Free Thyroxine) 1.33 ng/dL (0.80-1.80); Total Bilirubin 0.3 mg/dL (0.3-1.2); Total Protein 6.4 g/dL (6.2-8.2)
[2024-06-10 21:03] LABS: C Reactive Protein <0.30 mg/dL (0.00-0.80); Testosterone <10.00 ng/dL (7.00-45.62)
[2024-06-10 21:40] LABS: NT-Pro-B-Type Natriuretic Pept 140 pg/mL (0-125)
[2024-06-11 15:09] LABS: HLA B27 NEGATIVE
[2024-06-14 19:54] LABS: Cyclic Citrull Pep IgG Unit <1.5 U/mL (<=3.9); Cyclic Citrullinated Pep IgG Negative
== END | disposition home or self-care (01) ==
LOC: LABWHC1 14:48
PROVIDERS: ATTEND Internal Medicine Cardiovascular Disease
DX: I50.22 Chronic systolic (congestive) heart failure (principal); L65.0 Telogen effluvium; M46.98 Unspecified inflammatory spondylopathy, sacral and sacrococcygeal region; M48.061 Spinal stenosis, lumbar region without neurogenic claudication; E03.9 Hypothyroidism, unspecified; I48.0 Paroxysmal atrial fibrillation
CPT/HCPCS: 36415; 80053; 82306; 82607; 82626; 83735; 83880; 84403; 84439; 84443; 84550; 85025; 85652; 86038; 86140; 86200; 86618; 86812

== ENCOUNTER → 2024-12-09 | Outpatient (CLI) | payer MEDICARE ==
--- NOTE | 2024-12-09 10:12 | US ---
EXAMINATION TYPE: US gallbladder DATE OF EXAM: 12/09/2024 COMPARISON: None CLINICAL INDICATION: Female, 69 years old with history of R10.11 RIGHT UPPER QUADRANT PAIN; RUQ pain with diarrhea TECHNIQUE: Grayscale and color Doppler imaging of the right upper quadrant was performed. FINDINGS: EXAM MEASUREMENTS: Liver Length: 13.5 cm Gallbladder Wall: 0.25 cm CBD: 5.1 mm Right Kidney: 11.0 x 4.9 x 4.8 cm Pancreas: only the head was visualized and appears wnl. Remainder is obscured by bowel gas shadowin g. Liver: wnl Gallbladder: wnl Evidence for sonographic Lindo's sign: No CBD: wnl Right Kidney: wnl though the lower pole is obscured by bowel gas shadowing. No hydronephrosis. IMPRESSION: No gallstones or biliary ductal dilatation. [facility], Workstation: [facility]ENTERTrapeze NetworksESTUARDO, 12/09/2024 10:09 AM
--- NOTE | 2024-12-09 12:17 | FL ---
EXAMINATION TYPE: FL barium swallow DATE OF EXAM: 12/09/2024 10:25 AM COMPARISON: None. CLINICAL INDICATION: Female, 69 years old with history of R10.11 RIGHT UPPER QUADRANT PAIN, Dysphagia TECHNIQUE: Esophagram was performed per the air contrast technique. The patient swallowed barium and effervescent crystals without difficulty or delay. FINDINGS: Esophageal peristalsis and motility appear to be within normal limits. There is no evidence for filling defect, mass or diverticulum. There is evidence of a reducible paraesophageal type hiatal hernia measuring 4.5 x 3.5 cm. Subsequently single contrast cervical esophagram was performed which fails demonstrate evidence for a spiration penetration or mass. IMPRESSION: There is evidence of a reducible paraesophageal type hiatal hernia measuring 4.5 x 3.5 cm. [facility], , 12/09/2024 12:14 PM
== END | disposition home or self-care (01) ==
LOC: RADUSWWP 09:25
PROVIDERS: ATTEND Surgery Plastic and Reconstructive Surgery
DX: K44.9 Diaphragmatic hernia without obstruction or gangrene (principal); R13.10 Dysphagia, unspecified
CPT/HCPCS: 74220; 76705

== ENCOUNTER → 2024-12-13 | Outpatient (CLI) | payer MEDICARE ==
--- NOTE | 2024-12-13 15:53 | NM ---
EXAMINATION TYPE: NM hepatobiliary w EF DATE OF EXAM: 12/13/2024 COMPARISON: NONE INDICATION: Right upper quadrant pain TECHNIQUE: After the intravenous administration of 5.3 mCi Tc 99m Mebrofenin hepatobiliary scintigrap hy is performed. Images were obtained immediately post injection. FINDINGS: There is prompt uptake and excretion of radiotracer by the liver. Extrahepatic ducts are identified at 4 minutes. The gallbladder is visualized within 18 minutes. Small bowel activity is noted within 10 minutes. At one hour 8 ounces of oral ensure plus is given to mimic CCK and gallbladder ejection fraction is c alculated at 89 %, which is in the normal range. (Normal >35% and <80%.). IMPRESSION: 1. Correlate for biliary hyperkinesia. 2. No obstruction. [facility], , 12/13/2024 3:50 PM
== END | disposition home or self-care (01) ==
LOC: RADNMMAIN 12:46
PROVIDERS: ATTEND Surgery Plastic and Reconstructive Surgery
DX: R10.11 Right upper quadrant pain (principal); R13.10 Dysphagia, unspecified
CPT/HCPCS: 78226; A9537

== ENCOUNTER → 2024-12-30 | Outpatient (CLI) | payer MEDICARE ==
[2024-12-30 15:15] LABS: Basophils # (A) 0.03 X 10*3/uL (0.00-0.10); Basophils % (A) 0.3 %; Eosinophils # (A) 0 X 10*3/uL (0.04-0.35); Eosinophils % (A) 0 %; HCT 44.4 % (37.2-46.3); HGB 14.4 g/dL (12.0-15.0); Lymphocytes # (A) 0.79 X 10*3/uL (0.90-5.00); MCH 29.9 pg (27.0-32.0); MCHC 32.4 g/dL (32.0-37.0); MCV 92.1 FL (80.0-97.0); Mean Platelet Volume 11.5 FL (9.5-12.2); Monocytes # (A) 0.71 X 10*3/uL (0.20-1.00); Monocytes % (A) 6.3 %; NRBC Per 100 WBC 0 X 10*3/uL (0.00-0.01); Neutrophils % (A) 86.1 %; Platelet Count 257 X 10*3/uL (140-440); RBC 4.82 X 10*6/uL (4.10-5.20); WBC 11.26 X 10*3/uL (4.50-10.00)
[2024-12-30 15:45] LABS: Chol/HDL Ratio 2.47 Ratio; VLDL Calculation 15.32 mg/dL (5.00-40.00)
[2024-12-30 15:46] LABS: ALT 24 U/L (8-44); AST 31 U/L (13-35); Albumin 4.3 g/dL (3.8-4.9); Albumin/Globulin Ratio 2.26 Ratio (1.60-3.17); Alkaline Phosphatase 78 U/L (41-126); Blood Urea Nitrogen 18.2 mg/dL (9.0-27.0); Calcium 9.3 mg/dL (8.7-10.3); Chloride 106 mmol/L (96-109); Globulin 1.9 g/dL (1.6-3.3); Glucose 99 mg/dL (70-110); LDL Cholesterol,Calculated 80.6 mg/dL (0.0-131.0); Potassium 4.4 mmol/L (3.5-5.5); Sodium 142 mmol/L (135-145); T4, Free (Free Thyroxine) 0.99 ng/dL (0.80-1.80); Total Bilirubin 0.4 mg/dL (0.3-1.2); Total Protein 6.2 g/dL (6.2-8.2)
[2024-12-30 15:54] LABS: Testosterone <10.00 ng/dL (7.00-45.62)
== END | disposition home or self-care (01) ==
LOC: LABWHC1 10:45
PROVIDERS: ATTEND Family Medicine
DX: I50.22 Chronic systolic (congestive) heart failure (principal); K64.9 Unspecified hemorrhoids; E03.9 Hypothyroidism, unspecified; L65.0 Telogen effluvium
CPT/HCPCS: 36415; 80053; 80061; 82626; 83036; 84403; 84439; 84443; 85025

== ENCOUNTER → 2025-02-24 | Outpatient (CLI) | payer MEDICARE ==
--- NOTE | 2025-02-24 13:21 | US ---
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 TECHNIQUE: Grayscale, color Doppler and spectral Doppler evaluation of the bilateral carotid systems and vertebral arteries. Indirect Doppler criteria was utilized. FINDINGS: EXAM MEASUREMENTS: RIGHT: Peak Systolic Velocity (PSV) cm/sec ----- Right CCA: 70.4 ----- Right ICA: 55.3 ----- Right ECA: 77.5 ICA/CCA ratio: 0.8 RIGHT: End Diastole cm/sec ----- Right CCA: 18.5 ----- Right ICA: 17.9 ----- Right ECA: 13.8 LEFT: Peak Systolic Velocity (PSV) cm/sec ----- Left CCA: 60.1 ----- Left ICA: 70.1 ----- Left ECA: 88.4 ICA/CCA ratio: 1.2 LEFT: End Diastole cm/sec ----- Left CCA: 20.2 ----- Left ICA: 29.5 ----- Left ECA: 14.9 VERTEBRALS (direction of flow): Right Vertebral: Antegrade Left Vertebral: Antegrade Rhythm: Mild homogeneous plaque with no significant stenosis [employer] NOTES: Color Doppler imaging shows patency with blood flow throughout the carotid artery. Spectral waveforms are within normal limits. IMPRESSION: Right: No hemodynamically significant stenosis. Left: No hemodynamically significant stenosis. Criteria for Assigning % of Stenosis / Diameter reduction (Estimation based on the indirect measurements of the internal carotid artery velocities (ICA PSV). 1. Normal (no stenosis)=ICA PSV < 180 cm/s: ratio < 2.0: ICA EDV<40 cm/s. 2. Less than 50% stenosis=ICA PSV < 180 cm/s: ratio < 2.0: ICA EDV<40 cm/s. 3. 50 to 69% stenosis=ICA PSV of 180 to 230 cm/s: ration 2.0 ? 4.0: ICA EDV 40-100 cm/s. PSV 125-180 cm/sec and ICA/CCA PSV Ratio ? 2.0 is also consistent with 50-69% stenosis 4. Greater than 70% stenosis to near occlusion= ICA PSV > 230 cm/s: ratio > 4.0: ICA EDV > 100 cm/s. 5. Near occlusion= ICA PSV velocities may be low or undetectable: variable ratio and ICA EDV. 6. Total occlusion=unable to detect flow. [facility], , 02/24/2025 1:19 PM
== END | disposition home or self-care (01) ==
LOC: RADUSWWP 12:41
PROVIDERS: ATTEND Family Medicine
DX: G45.9 Transient cerebral ischemic attack, unspecified (principal)
CPT/HCPCS: 93880